=== PATIENT | female | born 2000 | race African-American/Black ===

== ENCOUNTER 2020-01-22 00:09 | Emergency (ER) | payer MEDICAID ==
[~2020-01-22] VITALS: Ht 160 cm; Wt 108.0 kg
[~2020-01-22 00:09] MED LIST: CEPH500C PO; NAPR550T PO; SULF1TAB35 PO
[2020-01-22] MEDS ORDERED: NS IV 1000 ML 1,000 ML IV ONE (00:25)
[2020-01-22] MEDS ORDERED: NS IV 1000 ML 1,000 ML IV SCH (00:25)
[2020-01-22] MEDS ORDERED: cefTRIAXone FOR IV USE 1,000 MG in WATER (STERILE) FOR INJECTION 10 ML IV ONE (00:30)
--- NOTE | 2020-01-22 00:32 | ED Back Pain ---
General Stated Complaint: GONZALEZ,BACK PAIN, 13 WKS PREG Source of Information: Patient Exam Limitations: No Limitations History of Present Illness Date Seen by Provider: Jan 22, 2020 Time Seen by Provider: 00:18 Initial Comments Patient resents ER by private conveyance from home with chief complaint of being treated for the past 3 days for a UTI by Dr. Su on the Macrobid, AZO and Tylenol 3. She feels it the pain is getting worse and she now has a headache. She's had any fever but she had some chills yesterday that went away after sitting in the shower for a while. She's having no cough or shortness of breath. No sick contacts. She is 13 weeks 5 days with a last menstrual period of October 18, 2019. . No significant problems with the thus far. Allergies and Home Medications Allergies Coded Allergies: No Known Drug Allergies (Unverified , 01/20/14) Home Medications Cephalexin 500 Mg Capsule, 500 MG PO BID Prescribed by: MATEUS GARBER on 01/22/20 0212 Cephalexin Monohydrate 500 Mg Capsule, 1 EACH PO TID Prescribed by: SANDER BARAKAT on 09/02/14 0040 Patient Home Medication List Home Medication List Reviewed: Yes Review of Systems Constitutional: No chills, No diaphoresis EENTM: No ear discharge, No ear pain Respiratory: No cough, No short of breath Cardiovascular: No chest pain, No edema Gastrointestinal: No abdominal pain, No constipation, No diarrhea, No nausea, No vomiting Genitourinary: dysuria; No frequency, No hematuria : Yes LMP: Oct 18, 2019 Musculoskeletal: see HPI, back pain; No joint pain All Other Systems Reviewed Negative Unless Noted: Yes Past Mnclfgu-Iayjhn-Cbckuu Hx Patient Social History Alcohol Use: Denies Use Recreational Drug Use: No Smoking Status: Never a Smoker Recent Foreign Travel: No Contact w/Someone Who Travel: No Immunizations Up To Date PED Vaccines UTD: Yes Seasonal Allergies Seasonal Allergies: No Past Medical History Reproductive Disorders: No Sexually Transmitted Disease: No Physical Exam Vital Signs Vital Signs - First Documented 01/22/20 00:15 Temp 37.9 Pulse 140 Resp 20 B/P (MAP) 134/80 (98) Pulse Ox 96 Capillary Refill : Height, Weight, BMI Height: 5'1" Weight: 190lbs. oz. 86.613130lz; BMI Method:Stated General Appearance: WD/WN, Mild Distress HEENT: PERRL/EOMI, Pharynx Normal, Moist Mucous Membranes Neck: Full Range of Motion, Normal Inspection Cardiovascular: Regular Rate, Rhythm, Normal Peripheral Pulses Respiratory: Lungs Clear, Normal Breath Sounds, No Accessory Muscle Use, No Respiratory Distress Gastrointestinal: Normal Bowel Sounds, Non Tender, Soft Back: Normal Inspection, No Vertebral Tenderness, CVA Tenderness (R) Extremity: Normal Capillary Refill, Normal Inspection, Normal Range of Motion, No Pedal Edema Neurologic/Psychiatric: Alert, Oriented x3, No Motor/Sensory Deficits, Normal Mood/Affect Skin: Normal Color, Warm/Dry Progress/Results/Core Measures Results/Orders Lab Results Laboratory Tests Test 01/22/20 00:35 01/22/20 01:00 01/22/20 01:25 Range/Units White Blood Count 9.9 4.3-11.0 10^3/uL Red Blood Count 3.97 L 4.35-5.85 10^6/uL Hemoglobin 11.4 L 11.5-16.0 G/DL Hematocrit 32 L 35-52 % Mean Corpuscular Volume 81 80-99 FL Mean Corpuscular Hemoglobin 29 25-34 PG Mean Corpuscular Hemoglobin Concent 36 32-36 G/DL Red Cell Distribution Width 15.3 H 10.0-14.5 % Platelet Count 216 130-400 10^3/uL Mean Platelet Volume 11.6 H 7.4-10.4 FL Neutrophils (%) (Auto) 79 H 42-75 % Lymphocytes (%) (Auto) 12 12-44 % Monocytes (%) (Auto) 9 0-12 % Eosinophils (%) (Auto) 0 0-10 % Basophils (%) (Auto) 0 0-10 % Neutrophils # (Auto) 7.9 H 1.8-7.8 X 10^3 Lymphocytes # (Auto) 1.2 1.0-4.0 X 10^3 Monocytes # (Auto) 0.9 0.0-1.0 X 10^3 Eosinophils # (Auto) 0.0 0.0-0.3 10^3/uL Basophils # (Auto) 0.0 0.0-0.1 10^3/uL Prothrombin Time 12.5 12.2-14.7 SEC INR Comment 0.9 0.8-1.4 Activated Partial Thromboplast Time 32 24-35 SEC Sodium Level 133 L 135-145 MMOL/L Potassium Level 4.0 3.6-5.0 MMOL/L Chloride Level 103 98-107 MMOL/L Carbon Dioxide Level 17 L 21-32 MMOL/L Anion Gap 13 5-14 MMOL/L Blood Urea Nitrogen 5 L 7-18 MG/DL Creatinine 0.70 0.60-1.30 MG/DL Estimat Glomerular Filtration Rate > 60 BUN/Creatinine Ratio 7 Glucose Level 117 H 70-105 MG/DL Calcium Level 8.9 8.5-10.1 MG/DL Corrected Calcium 9.4 8.5-10.1 MG/DL Total Bilirubin 0.3 0.1-1.0 MG/DL Aspartate Amino Transf (AST/SGOT) 29 5-34 U/L Alanine Aminotransferase (ALT/SGPT) 32 0-55 U/L Alkaline Phosphatase 68 40-136 U/L Total Protein 6.8 6.4-8.2 GM/DL Albumin 3.4 3.2-4.5 GM/DL Lactic Acid Level 0.88 0.50-2.00 MMOL/L Urine Color ORANGE Urine Clarity SL CLOUDY Urine pH 6.5 5-9 Urine Specific [place] 1.020 1.016-1.022 Urine Protein TRACE H NEGATIVE Urine Glucose (UA) NEGATIVE NEGATIVE Urine Ketones NEGATIVE NEGATIVE Urine Nitrite NEGATIVE NEGATIVE Urine Bilirubin NEGATIVE NEGATIVE Urine Urobilinogen 1.0 < = 1.0 MG/DL Urine Leukocyte Esterase TRACE H NEGATIVE Urine RBC (Auto) NEGATIVE NEGATIVE Urine RBC NONE /HPF Urine WBC 5-10 H /HPF Urine Squamous Epithelial Cells 5-10 /HPF Urine Crystals PRESENT H /LPF Urine Amorphous Sediment FEW ADITHYA URATES H /LPF Urine Bacteria TRACE /HPF Urine Casts NONE /LPF Urine Mucus NEGATIVE /LPF Urine Other FEW SPERM H /HPF Urine Yeast FEW H /HPF Urine Culture Indicated NO Urine Opiates Screen POSITIVE H NEGATIVE Urine Oxycodone Screen NEGATIVE NEGATIVE Urine Methadone Screen NEGATIVE NEGATIVE Urine Propoxyphene Screen NEGATIVE NEGATIVE Urine Barbiturates Screen NEGATIVE NEGATIVE Ur Tricyclic Antidepressants Screen NEGATIVE NEGATIVE Urine Phencyclidine Screen NEGATIVE NEGATIVE Urine Amphetamines Screen NEGATIVE NEGATIVE Urine Methamphetamines Screen NEGATIVE NEGATIVE Urine Benzodiazepines Screen NEGATIVE NEGATIVE Urine Cocaine Screen NEGATIVE NEGATIVE Urine Cannabinoids Screen POSITIVE H NEGATIVE My Orders Orders - JCARLOS,MATEUS J Cbc With Automated Diff (01/22/20 00:25) Comprehensive Metabolic Panel (01/22/20 00:25) Blood Culture (01/22/20:) Lactic Acid Analyzer (01/22/20:) Protime With Inr (01/22/20:) Partial Thromboplastin Time (01/22/20:25) Ed Iv/Invasive Line Start (01/22/20:25) Ceftriaxone For Iv Use (Rocephin For I (01/22/20:30) Ed Iv/Invasive Line Start (01/22/20:25) Ns Iv 1000 Ml (Sodium Chloride 0.9%) (01/22/20 00:25) Ns Iv 1000 Ml (Sodium Chloride 0.9%) (01/22/20:) Acetaminophen Tablet (Tylenol Tablet) (01/22/20 00:30) Drug Screen Stat (Urine) (01/22/20 00:32) Ua Culture If Indicated (01/22/20 01:54) Medications Given in ED Current Medications Medications Dose Ordered Sig/Macie Route Start Time Stop Time Status Last Admin Dose Admin Ceftriaxone Sodium 1000 mg/ Sterile Water 10 ml @ 200 mls/hr ONCE ONCE IV 01/22/20 00:30 01/22/20 00:32 DC 01/22/20 00:42 200 MLS/HR Sodium Chloride 1,000 ml @ 0 mls/hr Q0M ONCE IV 01/22/20 00:25 01/22/20 00:29 DC 01/22/20 00:41 1,000 MLS/HR Vital Signs/I&O 01/22/20 00:15 Temp 37.9 Pulse 140 Resp 20 B/P (MAP) 134/80 (98) Pulse Ox 96 Progress Progress Note #1: Time: 00:31 Progress Note Suspect pyelonephritis that after 3 days of outpatient antibiotics has not improved. She now has tachycardia with a heart rate in the 140s and a borderline fever of 100.2F. Plan to give her a gram of Tylenol, 2 L of fluid which would be 20 mL/kg and check labs including cultures and lactate. Progress Note #2: Time: 02:02 Progress Note Patient's heart rate has resumed a more normal rate around 100 after some fluids. She is afebrile. Her urinalysisa lot of contamination. Put her on 7 days of and discontinue the Macrobid. Departure Impression Primary Impression: Urinary tract infection Qualified Codes: N30.00 - Acute cystitis without hematuria Additional Impressions: Back pain Qualified Codes: M54.5 - Low back pain Qualified Codes: Z3A.13 - 13 weeks gestation of Disposition: 01 HOME, SELF-CARE Condition: Stable Departure-Patient Inst. Decision time for Depature: 02:05 Referrals: YOLANDA ARREOLA DO (PCP/Family) Primary Care Physician Patient Instructions: Urinary Tract Infection, Adult (DC) Add. Discharge Instructions: Drink lots of fluids. Stop taking the nitrofurantoin and start taking Keflex one capsule twice a day for the next 7 days. Tylenol 1000 mg every 8 hours as necessary for pain. Heating pads and topical creams as necessary for pain. Follow-up with your copy writer as necessary. Scripts Cephalexin (Keflex) 500 Mg Capsule 500 MG PO BID for 7 Days, #14 CAP 0 Refills Prov: MATEUS GARBER 01/22/20 Work/School Note: Work Release Form Date Seen in the Emergency Department: Jan 22, 2020 Return to Work: Jan 24, 2020 Restrictions: No Restrictions MATEUS GARBER Jan 22, 2020 00:32
--- OUTSIDE RECORDS SUMMARY | 2020-01-22 00:32 | XMS REPORT ---
Author Author Dick LANDIS [facility] Address Unknown Care Team Providers Care Drawing Instructor Name Role Phone YVONNE LANDIS Unavailable PROBLEMS Type Condition ICD9-CM Code [id number] Code Onset Dates Condition S tatus SNOMED Code Problem Dysuria R30.0 Active 05719855 Problem Acid indigestion K30 Active 162 153988 Problem Yeast vaginitis B37.3 Active 8792 4000 Problem Screen for STD (sexually transmitted disease) Z11. 3 Active 046760058 ALLERGIES No Information ENCOUNTERS Encounter Location Date Diagnosis [facility] [place] [address] [address] Mar, Abscess L02.[address] [address] Dec, Encounter for test, result unk nown Z32.[address] [address] November, Sore throat J02.9 ; Other sp ecified bacterial agents as the cause of diseases classified elsewhere B96.89 and Acute tonsillitis due to other specified organisms J03.80 [facility] [place] [address] [address] Jul, Acid indigestion K30 ; Sore throat (viral) J02.9 and Nose pain J34.[address] [address] Jan, Encounter for immunization Z23 [address] [address] 05 Dec, 2017 Sore throat J02.9 and Viral pharyngitis J02.9 [place] [address] [address] Dec, Screen for STD (sexually transmitted dis ease) Z11.3 ; Dysuria R30.0 and Yeast vaginitis B37.3 [place] [address] [address] November, Encounter for Depo-Provera contraception Z30.[address] [address] Sep, Encounter for Depo-Provera contraception Z30.42 [facility] [address] [place] [address] Sep, Flu-like symptoms R68.89 [facility] [address] [address] Jul, Viral gastroenteritis A08.4 [facility] [address] [address] 08 Jun, 2017 Sore throat J02.9 and Acute nasopharyngitis J00 [address] [address] 07 Jun, 2017 Encounter for Depo-Provera contraception Z30.42 [place] [address] [address] Mar, [address] [address] Mar, [facility] [address] [place] [address] 17 Mar, 2017 Sore throat J02.9 and Acute nasopharyngitis (common cold) J00 [address] [address] 06 Mar, 2017 Encounter for Depo-Provera contraception Z30.42 [place] [address] [address] Feb, Well child check Z00.129 ; Dietary couns eling Z71.3 ; Exercise counseling Z71.89 and Encounter for surveillance of injectable contraceptive Z30.[address] [address] 15 Dec, 2016 Encounter for Depo-Provera contraception Z30.42 [facility] [address] [id number] [address] [place] [address] Oct, Contusion of right leg, init ial encounter S80.11XA [address] [address] Sep, Encounter for Depo-Provera contraception Z30.[address] [address] Jul, Encounter for Depo-Provera contraception Z30.[address] [address] Apr, Encounter for Depo-Provera contraception Z30.[address] [address] Feb, Hyperinsulinemia E16.1 and Obesity (BMI 30-39.9) E66.[address] [address] Feb, Encounter for Depo-Provera contraception Z30.[address] [address] Jan, [facility] [place] [id number] [address] [place] [address] Dec, Congestion of both ears H93. 8X3 and Otalgia of right ear H92.[address] [address] Dec, [address] [address] November, Routine health maintenance Z00.00 ; Obes ity (BMI 30-39.9) E66.9 ; Family history of diabetes mellitus Z83.3 and Oral contraceptive pill surveillance Z30.41 [facility] [address] [address] 17 November, 2016 Routine health maintenance Z00.00 ; Enco unter for Depo-Provera contraception Z30.42 ; Obesity (BMI 30-39.9) E66.9 ; Family history of diabetes mellitus Z83.3 and Encounter for immunization Z23 [facility] [address] [place] [id number] [address] [place] [address] 03 Nov, 2015 Abscess L02.91 [facility] [address] [place] [address] 20 Oct, 2015 Encounter for PPD test Z11.1 [facility] [place] [address] [address] Oct, Pharyngitis J02.9 and Strep pharyngitis J02.0 [place] [address] [address] 14 Oct, 2014 [facility] [address] [address] Oct, [place] [address] [address] Sep, [facility] [address] [address] Sep, [place] [address] [address] Sep, [facility] [address] [address] Sep, [place] [address] [address] Aug, [facility] [address] [address] Aug, [place] [address] [address] Apr, [facility] [address] [facility] [place] [address] Apr, [facility] [address] [place] [id number] [place] [address] Mar, [facility] [address] [facility] [place] [address] Mar, [facility] [address] [place] [id number] [place] [address] Mar, [facility] [address] [place] [id number] [place] [address] Mar, [facility] [address] [place] [id number] [place] [address] Jan, [facility] [address] [place] [id number] [place] [address] Jan, [facility] [address] [place] [id number] [place] [address] Jan, [facility] [address] [place] [id number] [place] [address] Jan, [facility] [address] [place] [id number] [place] [address] Sep, [facility] [address] [place] [id number] [place] [address] Sep, IMMUNIZATIONS No Known Immunizations SOCIAL HISTORY Never Assessed REASON FOR VISIT PLAN OF CARE VITAL SIGNS MEDICATIONS No Known Medications RESULTS No Results PROCEDURES Procedure Date Ordered Result Body Site PSYCH DIAGNOSTIC EVALUATION February 03, 2014 INSTRUCTIONS MEDICATIONS ADMINISTERED No Known Medications MEDICAL (GENERAL) HISTORY Type Description Date Medical History mood disorder- patient state s bio moms doctor dx- and mom sold the medication that she was prescribed. Medical History Hyperinsulinemia Medical History Hyperinsulinemia Medical History Obesity (BMI 30-39.9) Medical History Hyperinsulinemia Surgical History tympanostomy tubes placed- now out. 2004 Surgical History wisdom teeth extraction 2015
--- OUTSIDE RECORDS SUMMARY | 2020-01-22 00:32 | XMS REPORT ---
Author Author VISHNU Josephinevalentina WOOELE Organization [facility] Address [address] [place] [address] Care Team Providers Care Duck Bill Operator Name Role Phone MARESEYAL Mcgrath Unavailable PROBLEMS Type Condition ICD9-CM Code [id number] Code Onset Dates Condition S tatus SNOMED Code Problem Dysuria R30.0 Active 41021932 Problem Screen for STD (sexually transmitted disease) Z11. 3 Active 165159141 Problem Obesity (BMI 30-39.9) E66.9 Active 335427151 Problem Family history of diabetes mellitus Z83.3 Active 605798680 Problem Yeast vaginitis B37.3 Active 7241 4000 Problem Hyperinsulinemia E16.1 Active 834 15173 ALLERGIES No Information ENCOUNTERS Encounter Location Date Diagnosis [facility] [address] [facility] [id number] [address] [place] [address] Jan, Encounter for immunization Z 23 [facility] [address] [place] [id number] [address] [place] [address] Dec, Sore throat J02.9 and Viral pharyngitis J02.9 [facility] [address] [facility] [id number] [address] [place] [address] Dec, Screen for STD (sexually tra nsmitted disease) Z11.3 ; Dysuria R30.0 and Yeast vaginitis B37.3 [facility] [address] [facility] [id number] [address] [place] [address] November, Encounter for Depo-Provera c ontraception Z30.42 [facility] [address] [facility] [id number] [address] [place] [address] Sep, Encounter for Depo-Provera c ontraception Z30.42 [facility] [address] [place] [address] 05 Sep, 2017 Flu-like symptoms R68.89 [facility] [address] [place] [address] Jul, Viral gastroenteritis A08.4 [facility] [address] [place] [id number] [address] [place] [address] 08 Jun, 2017 Sore throat J02.9 and Acute nasopharyngitis J00 [facility] [address] [address] 07 Jun, 2017 Encounter for Depo-Provera c ontraception Z30.42 [place] [address] [address] 27 Mar, 2017 [place] [address] [address] 26 Mar, 2017 [facility] [address] [address] 17 Mar, 2017 Sore throat J02.9 and Acute nasopharyngitis (common cold) J00 [place] [address] [address] 06 Mar, 2017 Encounter for Depo-Provera c ontraception Z30.42 [place] [address] [address] 15 Feb, 2017 Well child check Z00.129 ; D ietary counseling Z71.3 ; Exercise counseling Z71.89 and Encounter for surveillance of injectable contraceptive Z30.42 [place] [address] [address] 15 Dec, 2016 Encounter for Depo-Provera c ontraception Z30.42 [facility] [address] [place] [id number] [address] [place] [address] 18 Oct, 2016 Contusion of right leg, init ial encounter S80.11XA [place] [address] [address] Sep, Encounter for Depo-Provera c ontraception Z30.42 [place] [address] [address] Jul, Encounter for Depo-Provera c ontraception Z30.42 [place] [address] [address] Apr, Encounter for Depo-Provera c ontraception Z30.42 [place] [address] [address] Feb, Hyperinsulinemia E16.1 and O besity (BMI 30-39.9) E66.9 [place] [address] [address] Feb, Encounter for Depo-Provera c ontraception Z30.42 [place] [address] [address] Jan, [facility] [address] [address] Dec, Congestion of both ears H93. 8X3 and Otalgia of right ear H92.01 [place] [address] [address] Dec, [facility] [address] [address] November, Routine health maintenance Z 00.00 ; Obesity (BMI 30-39.9) E66.9 ; Family history of diabetes mellitus Z83.3 and Oral contraceptive pill surveillance Z30.41 [place] [address] [address] November, Routine health maintenance Z 00.00 ; Encounter for Depo-Provera contraception Z30.42 ; Obesity (BMI 30-39.9) E66.9 ; Family history of diabetes mellitus Z83.3 and Encounter for immunization Z23 [facility] [address] [id number] [address] [place] [address] November, Abscess L02.91 [facility] [address] [id number] [address] [place] [address] 20 Oct, 2015 Encounter for PPD test Z11.1 [facility] [address] [id number] [address] [place] [address] 11 Oct, 2015 Pharyngitis J02.9 and Strep pharyngitis J02.0 [facility] [address] [id number] [address] [place] [address] 14 Oct, 2014 [facility] [address] [id number] [address] [place] [address] Oct, [facility] [address] [id number] [address] [place] [address] Sep, [facility] [address] [id number] [address] [place] [address] Sep, [facility] [address] [id number] [address] [place] [address] Sep, [facility] [address] [id number] [address] [place] [address] Sep, [facility] [address] [id number] [address] [place] [address] Aug, [facility] [address] [id number] [address] [place] [address] Aug, [facility] [address] [id number] [address] [place] [address] Apr, [facility] [address] [id number] [address] [place] [address] Apr, [facility] [address] [id number] [address] [place] [address] Mar, [facility] [address] [id number] [address] [place] [address] Mar, [facility] [address] [id number] [address] [place] [address] Mar, [facility] [address] [id number] [address] [place] [address] Mar, [facility] [address] [id number] [address] [place] [address] Jan, [facility] [address] [id number] [address] [place] [address] Jan, [facility] [address] [id number] [address] [place] [address] Jan, [facility] [address] [id number] [address] [place] [address] Jan, [facility] [address] [id number] [address] [place] [address] Sep, [facility] [address] [id number] [address] [place] [address] Sep, IMMUNIZATIONS Vaccine Route Administration Date Status DEPO PROVERA (150 MG/ML) IM Intramuscular December 07, 2017 Admini stered SOCIAL HISTORY Never Assessed REASON FOR VISIT [facility]ARE VITAL SIGNS MEDICATIONS Unknown Medications RESULTS Name Result Date Reference Range TEST, URINE (IN HOUSE) 2017-12-07 RESULTS neg Lot # [id number] Control + Exp date 07/04 PROCEDURES Procedure Date Ordered Result Body Site URINE TEST December 07, 2017 DEPO PROVERA (150 MG/ML) December 07, 2017 THER/PROPH/DIAG INJ, SC/IM December 07, 2017 INSTRUCTIONS MEDICATIONS ADMINISTERED No Known Medications MEDICAL (GENERAL) HISTORY Type Description Date Medical History mood disorder- patient state s bio moms doctor dx- and mom sold the medication that she was prescribed. Medical History Hyperinsulinemia Medical History Hyperinsulinemia Surgical History tympanostomy tubes placed- now out. 2004 Surgical History wisdom teeth extraction 2015
--- OUTSIDE RECORDS SUMMARY | 2020-01-22 00:32 | XMS REPORT ---
Author Author Dick NEWMAN Organization [facility] Address [address] [place] [address] Care Team Providers Care Pst Supervisor Name Role Phone BRIE NEWMAN Unavailable PROBLEMS Type Condition ICD9-CM Code TNF02-YT Code Onset Dates Condition S tatus SNOMED Code Problem Dysuria R30.0 Active 06877333 Problem Acid indigestion K30 Active 162 264303 Problem Yeast vaginitis B37.3 Active 7263 4000 Problem Screen for STD (sexually transmitted disease) Z11. 3 Active 439020561 ALLERGIES No Information ENCOUNTERS Encounter Location Date Diagnosis [facility] [address] [place] [id number] [address] [place] [address] Sep, 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 [address] [place] [id number] [address] [place] [address] Mar, Abscess L02.91 [facility] [address] [place] [id number] [address] [place] [address] Dec, Encounter for test , result unknown Z32.00 [facility] IN [facility] [address] [place] [id number] [address] [place] [address] November, Sore throat J02.9 ; Other sp ecified bacterial agents as the cause of diseases classified elsewhere B96.89 and Acute tonsillitis due to other specified organisms J03.80 [facility] [address] [place] [id number] [address] [place] [address] Jul, Acid indigestion K30 ; Sore throat (viral) J02.9 and Nose pain J34.89 [facility] [address] [place] [address] Jan, Encounter for immunization Z 23 [facility] [address] [place] [id number] [place] [address] Dec, Sore throat J02.9 and Viral pharyngitis J02.9 [place] [address] [address] Dec, Screen for STD (sexually tra nsmitted disease) Z11.3 ; Dysuria R30.0 and Yeast vaginitis B37.3 [place] [address] [address] November, Encounter for Depo-Provera c ontraception Z30.42 [place] [address] [address] Sep, Encounter for Depo-Provera c ontraception Z30.42 [facility] [address] [address] Sep, Flu-like symptoms R68.89 [facility] [place] [address] [address] Jul, Viral gastroenteritis A08.4 [facility] [address] [address] Jun, Sore throat J02.9 and Acute nasopharyngitis J00 [place] [address] [address] Jun, Encounter for Depo-Provera c ontraception Z30.42 [place] [address] [place] [id number] [address] [place] [address] Mar, [place] [address] [place] [id number] [place] [address] Mar, [facility] [address] [address] 17 Mar, 2017 Sore throat J02.9 and Acute nasopharyngitis (common cold) J00 [place] [address] [address] 06 Mar, 2017 Encounter for Depo-Provera c ontraception Z30.42 [place] [address] [address] 15 Feb, 2017 Well child check Z00.129 ; D ietary counseling Z71.3 ; Exercise counseling Z71.89 and Encounter for surveillance of injectable contraceptive Z30.42 [place] [address] [address] 15 Dec, 2016 Encounter for Depo-Provera c ontraception Z30.42 [facility] [address] [address] 18 Oct, 2016 Contusion of right leg, init ial encounter S80.11XA [place] [address] [address] Sep, Encounter for Depo-Provera c ontraception Z30.42 [place] [address] [address] Jul, Encounter for Depo-Provera c ontraception Z30.42 [place] [address] [address] Apr, Encounter for Depo-Provera c ontraception Z30.42 [place] [address] [address] 16 Feb, 2016 Hyperinsulinemia E16.1 and O besity (BMI 30-39.9) E66.9 [place] [address] [address] Feb, Encounter for Depo-Provera c ontraception Z30.42 [place] [address] [address] Jan, [facility] IN [facility] [address] [address] Dec, Congestion of both ears H93. 8X3 and Otalgia of right ear H92.01 [place] [address] [address] Dec, [place] [address] [address] November, Routine health maintenance Z 00.00 ; Obesity (BMI 30-39.9) E66.9 ; Family history of diabetes mellitus Z83.3 and Oral contraceptive pill surveillance Z30.41 [place] [address] [address] November, Routine health maintenance Z 00.00 ; Encounter for Depo-Provera contraception Z30.42 ; Obesity (BMI 30-39.9) E66.9 ; Family history of diabetes mellitus Z83.3 and Encounter for immunization Z23 [facility] IN [place] [address] [address] November, Abscess L02.91 [facility] IN [place] [address] [address] Oct, Encounter for PPD test Z11.1 [facility] IN [place] [address] [address] Oct, Pharyngitis J02.9 and Strep pharyngitis J02.0 [place] [address] [address] Oct, [place] [address] [address] Oct, [place] [address] [place] [id number] [address] [place] [address] Sep, [facility] [address] [id number] [address] [address] 27 Sep, 2014 [facility] [address] [id number] [address] [place] [address], [place] [address] Sep, [facility] [address] [id number] [address] [place] [address], [place] [address] Sep, 2014 [facility] [address] [id number] [address] [place] [address], [place] [address] Aug, 2014 [facility] [address] [id number] [address] [place] [address], [place] [address] Aug, 2014 [facility] [address] [id number] [address] [place] [address], [place] [address] Apr, [facility] [address] [id number] [address] [place] [address], [place] [address] Apr, [facility] [address] [id number] [address] [place] [address], [place] [address] Mar, [facility] [address] [id number] [address] [place] [address], [place] [address] Mar, [facility] [address] [id number] [address] [place] [address], [place] [address] Mar, [facility] [address] [id number] [address] [place] [address], [place] [address] Mar, [facility] [address] [id number] [address] [place] [address], [place] [address] Jan, [facility] [address] [id number] [address] [place] [address], [place] [address] Jan, [facility] [address] [id number] [address] [place] [address], [place] [address] Jan, [facility] [address] [id number] [address] [place] [address], [place] [address] Jan, [facility] [address] [id number] [address] [place] [address], [place] [address] Sep, [facility] [address] [facility] [id number] [address] [place] [address] Sep, IMMUNIZATIONS No Known Immunizations SOCIAL HISTORY Never Assessed REASON FOR VISIT PLAN OF CARE VITAL SIGNS MEDICATIONS Unknown Medications RESULTS No Results PROCEDURES No Known procedures INSTRUCTIONS MEDICATIONS ADMINISTERED No Known Medications MEDICAL [...]
--- OUTSIDE RECORDS SUMMARY | 2020-01-22 00:32 | XMS REPORT ---
Author Author Dick MAYFIELD [facility] Address [address] [place] [address] Care Team Providers Care Machine Stuffer Automatic Name Role Phone MAYFIELDSAMNANCY Unavailable PROBLEMS Type Condition ICD9-CM Code [id number] Code Onset Dates Condition S tatus SNOMED Code Problem Dysuria R30.0 Active 42377037 Problem Screen for STD (sexually transmitted disease) Z11. 3 Active 797652278 Problem Obesity (BMI 30-39.9) E66.9 Active 793044390 Problem Family history of diabetes mellitus Z83.3 Active 225404878 Problem Yeast vaginitis B37.3 Active 7293 4000 Problem Hyperinsulinemia E16.1 Active 834 50857 ALLERGIES Substance Reaction Event Type Date Status Bee Pollen hives Drug Allergy Dec, Active ENCOUNTERS Encounter Location Date Diagnosis [facility] [id number] [place] [address] Jan, Encounter for immunization Z 23 [facility] [address] [address] [id number] [address] [place] [phone] Dec, Sore throat J02.9 and Viral pharyngitis J02.9 [facility] [id number] [place] [address] Dec, Screen for STD (sexually tra nsmitted disease) Z11.3 ; Dysuria R30.0 and Yeast vaginitis B37.3 [facility] [id number] [address] [place] [address] November, Encounter for Depo-Provera c ontraception Z30.42 [facility] [id number] [address] [place] [address] Sep, Encounter for Depo-Provera c ontraception Z30.42 [facility] [id number] [address] [place] [id number] 05 Sep, 2017 Flu-like symptoms R68.89 [facility] WALK IN [facility] [id number] [address] [place] [phone] Jul, Viral gastroenteritis A08.4 [facility] WALK [facility] [place] [address] [id number] [address] [place] [address] 08 Jun, 2017 Sore throat J02.9 and Acute nasopharyngitis J00 [place] [address] [address] 07 Jun, 2017 Encounter for Depo-Provera c ontraception Z30.42 [place] [address] [place] [id number] [place] [phone] 27 Mar, 2017 [place] [address] [address] Mar, [facility] WALK [facility] [place] [address] [address] 17 Mar, 2017 Sore throat J02.9 and Acute nasopharyngitis (common cold) J00 [place] [address] [address] 06 Mar, 2017 Encounter for Depo-Provera c ontraception Z30.42 [place] [address] [address] 15 Feb, 2017 Well child check Z00.129 ; D ietary counseling Z71.3 ; Exercise counseling Z71.89 and Encounter for surveillance of injectable contraceptive Z30.42 [place] [address] [address] 15 Dec, 2016 Encounter for Depo-Provera c ontraception Z30.42 [facility] [id number] [address] [place] [id number] 18 Oct, 2016 Contusion of right leg, init ial encounter S80.11XA [facility] [id number] [place] [address] Sep, Encounter for Depo-Provera c ontraception Z30.42 [place] [address] [place] [id number] [address] [place] [address] Jul, Encounter for Depo-Provera c ontraception Z30.42 [place] [address] [address] Apr, Encounter for Depo-Provera c ontraception Z30.42 [place] [address] [address] Feb, Hyperinsulinemia E16.1 and O besity (BMI 30-39.9) E66.9 [place] [address] [address] Feb, Encounter for Depo-Provera c ontraception Z30.42 [place] [address] [place] [id number] [place] [address] Jan, [facility] [address] [address] Dec, Congestion of both ears H93. 8X3 and Otalgia of right ear H92.01 [place] [address] [address] Dec, [place] [address] [address] November, Routine health maintenance Z 00.00 ; Obesity (BMI 30-39.9) E66.9 ; Family history of diabetes mellitus Z83.3 and Oral contraceptive pill surveillance Z30.41 [place] [address] [place] [id number] [place] [address] November, Routine health maintenance Z 00.00 ; Encounter for Depo-Provera contraception Z30.42 ; Obesity (BMI 30-39.9) E66.9 ; Family history of diabetes mellitus Z83.3 and Encounter for immunization Z23 [facility] [address] [facility] [id number] [address] [place] [address] November, Abscess L02.91 [facility] [address] [facility] [id number] [address] [place] [address] Oct, Encounter for PPD test Z11.1 [facility] [address] [facility] [id number] [address] [place] [address] Oct, Pharyngitis J02.9 and Strep pharyngitis J02.0 [facility] [address] [id number] [address] [place] [address] Oct, [facility] [address] [id number] [address] [place] [address] Oct, [facility] [address] [facility] [id number] [address] [place] [address] Sep, [facility] [address] [id number] [address] [place] [address] Sep, [facility] [address] [facility] [id number] [address] [place] [address] Sep, [facility] [address] [facility] [id number] [address] [place] [address] Sep, [facility] [address] [facility] [id number] [address] [place] [phone] Aug, [facility] [address] [id number] [address] [place] [address] Aug, [facility] [address] [facility] [id number] [address] [place] [address] Apr, [facility] [address] [facility] [id number] [address] [place] [phone] Apr, [facility] [address] [facility] [id number] [address] [place] [phone] Mar, [facility] [address] [id number] [address] [place] [phone] Mar, [facility] [address] [id number] [address] [place] [address] Mar, [facility] [address] [id number] [address] [place] [phone] Mar, [facility] [address] [id number] [address] [place] [address] Jan, [facility] [address] [id number] [address] [place] [phone] Jan, [facility] [address] [id number] [address] [place] [address] Jan, [facility] [address] [id number] [address] [place] [address] Jan, [facility] [address] [id number] [address] [place] [address] Sep, [facility] [address] [id number] [address] [place] [address] Sep, IMMUNIZATIONS No Known Immunizations SOCIAL HISTORY Never Assessed REASON FOR VISIT sore throat Pt c/o sinus drainaige, cough, and sore throat, states she recently got "yellow balls" out of her tonsils ROLLY Alex PLAN OF CARE Activity Details Follow Up prn Reason: VITAL SIGNS Height 62 in 2017-12-19 Weight 223.4 lbs 2017-12-19 Temperature 97.9 degrees Fahrenheit 2017-12-19 Heart Rate 80 bpm 2017-12-19 Respiratory Rate 20 2017-12-19 BMI 40.86 kg/m2 2017-12-19 Blood pressure systolic 118 mmHg 2017-12-19 Blood pressure diastolic 76 mmHg 2017-12-19 MEDICATIONS Medication Instructions Dosage Frequency Start Date End Date Duration S tatus Depo-Provera 150 MG/ML 1 ml Feb, Active MetFORMIN HCl ER 500 MG Orally twice a day APPT NEEDED FOR R EFILL 1 tablet with a meal Dec, 60 days Active RESULTS Name Result Date Reference Range STREP A (IN HOUSE) 2017-12-19 STREP A negative Control + Lot # [id number] Exp date 2020-05-01 PROCEDURES Procedure Date Ordered Result Body Site STREP A ASSAY W/OPTIC December 19, 2017 INSTRUCTIONS MEDICATIONS ADMINISTERED No Known Medications MEDICAL (GENERAL) HISTORY Type Description Date Medical History mood disorder- patient state s bio moms doctor dx- and mom sold the medication that she was prescribed. Medical History Hyperinsulinemia Medical History Hyperinsulinemia Surgical History tympanostomy tubes placed- now out. 2004 Surgical History wisdom teeth extraction 2015
--- OUTSIDE RECORDS SUMMARY | 2020-01-22 00:32 | XMS REPORT ---
Author Author Dick Mckeon Organization [employer] Address Unknown Phone Unavailable Care Team Providers Care Postal Transportation Clerk Name Role Phone Michael Mckeon CP Unavailable Allergies No Known Allergies Problems Problem Type Condition Code Onset Dates Condition Statu s Problem CARE LEVEL 3 CARE3 Active Medications No Known Medications Results No Known Results Summary Purpose [employer] Submission
--- OUTSIDE RECORDS SUMMARY | 2020-01-22 00:32 | XMS REPORT ---
Author Author Dick TUCKER [facility] Address [address] [place] [address] Care Team Providers Care Bleach Mixer Name Role Phone GARRETTSELENEHY Unavailable PROBLEMS Type Condition ICD9-CM Code RHH92-LK Code Onset Dates Condition S tatus SNOMED Code Problem Dysuria R30.0 Active 43258718 Problem Screen for STD (sexually transmitted disease) Z11. 3 Active 837242678 Problem Obesity (BMI 30-39.9) E66.9 Active 245630454 Problem Family history of diabetes mellitus Z83.3 Active 464035541 Problem Yeast vaginitis B37.3 Active 7293 4000 Problem Hyperinsulinemia E16.1 Active 834 66879 ALLERGIES Substance Reaction Event Type Date Status Bee Pollen hives Drug Allergy Sep, Active ENCOUNTERS Encounter Location Date Diagnosis [facility]ALK IN [facility] [id number] [place] [address] Dec, Sore throat J02.9 and Viral pharyngitis J02.9 [facility] [address] [facility] [id number] [address] [place] [address] Dec, Screen for STD (sexually tra nsmitted disease) Z11.3 ; Dysuria R30.0 and Yeast vaginitis B37.3 [facility] [address] [facility] [id number] [address] [place] [address] November, Encounter for Depo-Provera c ontraception Z30.42 [facility] [address] [facility] [id number] [address] [place] [address] Sep, Encounter for Depo-Provera c ontraception Z30.42 [facility] [address] [facility] [id number] [address] [place] [address] Sep, Flu-like symptoms R68.89 [facility] [address] [facility] [id number] [address] [place] [address] Jul, Viral gastroenteritis A08.4 [facility] IN [facility] [address] [facility] [id number] [address] [place] [address] 08 Jun, 2017 Sore throat J02.9 and Acute nasopharyngitis J00 [place] [id number] [place] [address] 07 Jun, 2017 Encounter for Depo-Provera c ontraception Z30.42 [place] [address] [address] [id number] [address] [place] [phone] 27 Mar, 2017 [place] [address] [id number] [place] [address] 26 Mar, 2017 [facility] WALK IN [facility] [address] [address] 17 Mar, 2017 Sore throat J02.9 and Acute nasopharyngitis (common cold) [address] [place] [id number] [place] [address] 06 Mar, 2017 Encounter for Depo-Provera c ontraception Z30.42 [place] [address] [address] [id number] [place] [address] 15 Feb, 2017 Well child check Z00.129 ; D ietary counseling Z71.3 ; Exercise counseling Z71.89 and Encounter for surveillance of injectable contraceptive Z30.42 [place] [address] [place] [id number] [place] [address] 15 Dec, 2016 Encounter for Depo-Provera c ontraception Z30.42 [facility] IN [facility] [address] [id number] [address] [place] [address] 18 Oct, 2016 Contusion of right leg, init ial encounter S80.11XA [place] [address] [address] Sep, Encounter for Depo-Provera c ontraception Z30.42 [facility] [address] [id number] [address] [place] [address] Jul, Encounter for Depo-Provera c ontraception Z30.42 [place] [address] [place] [id number] [address] [place] [address] Apr, Encounter for Depo-Provera c ontraception Z30.42 [place] [address] [address] Feb, Hyperinsulinemia E16.1 and O besity (BMI 30-39.9) E66.9 [place] [address] [address] Feb, Encounter for Depo-Provera c ontraception Z30.42 [place] [address] [address] Jan, [facility] [address] [address] Dec, Congestion of both ears H93. 8X3 and Otalgia of right ear H92.01 [place] [address] [place] [id number] [place] [address] Dec, [place] [address] [place] [id number] [address] [place] [address] November, Routine health maintenance Z 00.00 ; Obesity (BMI 30-39.9) E66.9 ; Family history of diabetes mellitus Z83.3 and Oral contraceptive pill surveillance Z30.41 [place] [address] [place] [id number] [place] [address] November, Routine health maintenance Z 00.00 ; Encounter for Depo-Provera contraception Z30.42 ; Obesity (BMI 30-39.9) E66.9 ; Family history of diabetes mellitus Z83.3 and Encounter for immunization Z23 [facility] [address] [place] [address] [id number] [address] [place] [address] November, Abscess L02.91 [facility] [address] [id number] [address] [place] [address] 20 Oct, 2015 Encounter for PPD test Z11.1 [facility] [address] [id number] [address] [place] [address] 11 Oct, 2015 Pharyngitis J02.9 and Strep pharyngitis J02.0 [facility] [address] [id number] [address] [place] [address] 14 Oct, 2014 [facility] [address] [id number] [address] [place] [address] Oct, [facility] [address] [id number] [address] [place] [address] Sep, [facility] [address] [id number] [address] [place] [address] Sep, [facility] [address] [id number] [address] [place] [address] Sep, [facility] [address] [id number] [address] [place] [address] Sep, [facility] [address] [id number] [address] [place] [address] Aug, [facility] [address] [id number] [address] [place] [address] Aug, [facility] [address] [id number] [address] [place] [address] Apr, [facility] [address] [id number] [address] [place] [address] Apr, [facility] [address] [id number] [address] [place] [address] Mar, [facility] [address] [id number] [address] [place] [phone] Mar, [facility] [address] [id number] [address] [place] [address] Mar, [facility] [address] [id number] [address] [place] [address] Mar, [facility] [address] [id number] [address] [place] [phone] Jan, [facility] [address] [id number] [address] [place] [address] Jan, [facility] [address] [id number] [address] [place] [phone] Jan, [facility] [address] [id number] [address] [place] [phone] Jan, [facility] [address] [facility] [id number] [address] [place] [address] Sep, [facility] [address] [facility] [id number] [address] [place] [address] Sep, IMMUNIZATIONS No Known Immunizations SOCIAL HISTORY Never Assessed REASON FOR VISIT cough, congestion, sore throat, runny nose, vasu headache. been sick for 2 days. hui PLAN OF CARE Activity Details Follow Up prn Reason: VITAL SIGNS Height 62 in 2017-09-18 Weight 226.0 lbs 2017-09-18 Temperature 98.3 degrees Fahrenheit 2017-09-18 Heart Rate 84 bpm 2017-09-18 Respiratory Rate 20 2017-09-18 BMI 41.33 kg/m2 2017-09-18 Blood pressure systolic 126 mmHg 2017-09-18 Blood pressure diastolic 74 mmHg 2017-09-18 MEDICATIONS Medication Instructions Dosage Frequency Start Date End Date Duration S tatus Trazodone HCl 50 MG Orally Once a day 1 tablet at bedtime as needed 24h Not-Taking Ibuprofen 200 MG Orally every 6 hrs 3 tablet as needed 6h Not-Taking Flagyl 500 mg Orally 2 times a day 1 tablet 12h 26 Mar, 2017 07 days Not-Taking Depo-Provera 150 MG/ML 1 ml Feb, Not-Taking MetFORMIN HCl ER 500 MG Orally twice a day APPT NEEDED FOR R EFILL 1 tablet with a meal Dec, 60 days Not-Taking Sudafed 30 MG Orally every 6 hrs prn congestion 1 tablet as needed Dec, Not-Taking RESULTS Name Result Date Reference Range INFLUENZA A & B (IN HOUSE) 2017-09-18 INFLUENZA A negative INFLUENZA B negative Control + Lot # [id number] Exp date 11 14 2019 PROCEDURES Procedure Date Ordered Result Body Site INFLUENZA ASSAY W/OPTIC September 18, 2017 INSTRUCTIONS MEDICATIONS ADMINISTERED No Known Medications MEDICAL (GENERAL) HISTORY Type Description Date Medical History mood disorder- patient state s bio moms doctor dx- and mom sold the medication that she was prescribed. Medical History Hyperinsulinemia Medical History Hyperinsulinemia Surgical History tympanostomy tubes placed- now out. 2004 Surgical History wisdom teeth extraction 2015
--- OUTSIDE RECORDS SUMMARY | 2020-01-22 00:32 | XMS REPORT ---
Author Author Dick NEWMAN Organization [facility] [place] Address [address] [place] [address] Care Team Providers Care Order Tracer Name Role Phone BRIE NEWMAN Unavailable PROBLEMS Type Condition ICD9-CM Code OBR13-FD Code Onset Dates Condition S tatus SNOMED Code Problem Dysuria R30.0 Active 57904440 Problem Acid indigestion K30 Active 162 974258 Problem Yeast vaginitis B37.3 Active 7266 4000 Problem Screen for STD (sexually transmitted disease) Z11. 3 Active [id number] ALLERGIES No Information ENCOUNTERS Encounter Location Date Diagnosis [facility] [address] [address] Mar, Abscess L02.[address] [address] Dec, Encounter for test, result unk nown Z32.00 [place] [id number] [address] [place] [address] November, Sore throat J02.9 ; Other sp ecified bacterial agents as the cause of diseases classified elsewhere B96.89 and Acute tonsillitis due to other specified organisms J03.80 [place] [id number] [address] [place] [address] Jul, Acid indigestion K30 ; Sore throat (viral) J02.9 and Nose pain J34.[address] [address] Jan, Encounter for immunization Z23 [address] [address] Dec, Sore throat J02.9 and Viral pharyngitis J02.9 [place] [address] [address] Dec, Screen for STD (sexually transmitted dis ease) Z11.3 ; Dysuria R30.0 and Yeast vaginitis B37.3 [place] [address] [address] November, Encounter for Depo-Provera contraception Z30.42 [place] [address] [address] Sep, Encounter for Depo-Provera contraception Z30.42 [facility] [address] [address] Sep, Flu-like symptoms R68.89 [facility] [address] [address] Jul, Viral gastroenteritis A08.4 [facility] [address] [address] Jun, Sore throat J02.9 and Acute nasopharyngitis J00 [address] [address] Jun, Encounter for Depo-Provera contraception Z30.42 [place] [address] [address] Mar, [place] [address] [address] Mar, [facility] [address] [address] Mar, Sore throat J02.9 and Acute nasopharyngitis (common cold) J00 [place] [address] [address] 06 Mar, 2017 Encounter for Depo-Provera contraception Z30.42 [place] [address] [address] Feb, Well child check Z00.129 ; Dietary couns eling Z71.3 ; Exercise counseling Z71.89 and Encounter for surveillance of injectable contraceptive Z30.42 [place] [address] [address] Dec, Encounter for Depo-Provera contraception Z30.42 [facility] [place] [id number] [address] [place] [address] Oct, Contusion of right leg, init ial encounter S80.11XA [address] [address] Sep, Encounter for Depo-Provera contraception Z30.42 [place] [address] [address] Jul, Encounter for Depo-Provera contraception Z30.[address] [address] Apr, Encounter for Depo-Provera contraception Z30.[address] [address] Feb, Hyperinsulinemia E16.1 and Obesity (BMI 30-39.9) E66.[address] [address] Feb, Encounter for Depo-Provera contraception Z30.[address] [address] Jan, [facility] [address] [place] [id number] [place] [address] Dec, Congestion of both ears H93. 8X3 and Otalgia of right ear H92.[address] [address] Dec, [address] [address] November, Routine health maintenance Z00.00 ; Obes ity (BMI 30-39.9) E66.9 ; Family history of diabetes mellitus Z83.3 and Oral contraceptive pill surveillance Z30.41 [facility] [place] [address] [address] 17 November, 2016 Routine health maintenance Z00.00 ; Enco unter for Depo-Provera contraception Z30.42 ; Obesity (BMI 30-39.9) E66.9 ; Family history of diabetes mellitus Z83.3 and Encounter for immunization Z23 [facility] [address] [address] 03 Nov, 2015 Abscess L02.91 [facility] [address] [address] Oct, Encounter for PPD test Z11.1 [facility] [address] [address] 11 Oct, 2015 Pharyngitis J02.9 and Strep pharyngitis J02.0 [place] [address] [address] 14 Oct, 2014 [place] [address] [address] Oct, [facility] [place] [address] [address] Sep, [place] [address] [address] Sep, [facility] [place] [address] [address] Sep, [facility] [place] [address] [address] Sep, [place] [address] [address] Aug, [facility] [place] [address] [address] Aug, [facility] [place] [address] [place] [address] Apr, [facility] [place] [address] [place] [id number] [place] [address] Apr, [facility] [place] [address] [place] [id number] [place] [address] Mar, [facility] [place] [address] [place] [id number] [place] [address] Mar, [facility] [place] [address] [place] [id number] [place] [address] Mar, [facility] [place] [address] [place] [id number] [place] [address] Mar, [facility] [place] [address] [place] [id number] [place] [address] Jan, [facility] [place] [address] [place] [id number] [place] [address] Jan, [facility] [place] [address] [place] [id number] [place] [address] Jan, [facility] [place] [address] [place] [id number] [place] [address] Jan, [facility] [place] [address] [place] [id number] [place] [address] Sep, [facility] [place] [address] [place] [id number] [place] [address] Sep, IMMUNIZATIONS No Known Immunizations SOCIAL HISTORY Never Assessed REASON FOR VISIT PLAN OF CARE VITAL SIGNS MEDICATIONS No Known Medications RESULTS No Results PROCEDURES Procedure Date Ordered Result Body Site PSYTX PT&/FAMILY 45 MINUTES February 04, 2014 INSTRUCTIONS MEDICATIONS ADMINISTERED No Known Medications [...]
--- OUTSIDE RECORDS SUMMARY | 2020-01-22 00:32 | XMS REPORT ---
Author Author Dick Bartholomew Doctor Organization [facility] Address Unknown Phone Unavailable Care Team Providers Care Food Expeditor Name Role Phone Migration, Doctor Unavailable Unavailable PROBLEMS Type Condition ICD9-CM Code MAO87-LX Code Onset Dates Condition S tatus SNOMED Code Problem Dysuria R30.0 Active 49239499 Problem Acid indigestion K30 Active 162 974574 Problem Yeast vaginitis B37.3 Active 7233 4000 Problem Screen for STD (sexually transmitted disease) Z11. 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.89 and Tuberculosis screening Z11.1 [facility] [address] [place] [id number] [address] [place] [address] Mar, Abscess L02.91 [facility] [address] [address] Dec, Encounter for test, result unk nown Z32.00 [facility] IN [facility] [address] [place] [id number] [address] [place] [address] November, Sore throat J02.9 ; Other sp ecified bacterial agents as the cause of diseases classified elsewhere B96.89 and Acute tonsillitis due to other specified organisms J03.80 [facility] [address] [place] [id number] [address] [place] [address] Jul, Acid indigestion K30 ; Sore throat (viral) J02.9 and Nose pain J34.89 [facility] [address] [place] [id number] [place] [address] Jan, Encounter for immunization Z23 [facility] IN [facility] [address] [address] 05 Dec, 2017 Sore throat J02.9 and Viral pharyngitis J02.9 [place] [address] [address] Dec, Screen for STD (sexually transmitted dis ease) Z11.3 ; Dysuria R30.0 and Yeast vaginitis B37.3 [place] [address] [address] November, Encounter for Depo-Provera contraception Z30.42 [place] [address] [address] Sep, Encounter for Depo-Provera contraception Z30.42 [facility] [address] [address] Sep, Flu-like symptoms R68.89 [facility] [address] [address] Jul, Viral gastroenteritis A08.4 [facility] [address] [address] Jun, Sore throat J02.9 and Acute nasopharyngitis J00 [place] [address] [address] Jun, Encounter for Depo-Provera contraception Z30.42 [place] [address] [address] Mar, [place] [address] [address] Mar, [facility] [address] [place] [address] 17 Mar, 2017 Sore throat J02.9 and Acute nasopharyngitis (common cold) J00 [place] [address] [address] Mar, Encounter for Depo-Provera contraception Z30.42 [place] [address] [address] Feb, Well child check Z00.129 ; Dietary couns eling Z71.3 ; Exercise counseling Z71.89 and Encounter for surveillance of injectable contraceptive Z30.42 [place] [address] [address] Dec, Encounter for Depo-Provera contraception Z30.42 [facility] [address] [place], [place] [id number] [address] [place] [address] Oct, Contusion of right leg, init ial encounter S80.11XA [address] [address] Sep, Encounter for Depo-Provera contraception Z30.[address] [address] Jul, Encounter for Depo-Provera contraception Z30.42 [place] [address] [address] Apr, Encounter for Depo-Provera contraception Z30.[address] [address] Feb, Hyperinsulinemia E16.1 and Obesity (BMI 30-39.9) E66.[address] [address] Feb, Encounter for Depo-Provera contraception Z30.42 [place] [address] [address] Jan, [facility] [address] [place] [id number] [address] [place] [address] 08 Dec, 2015 Congestion of both ears H93. 8X3 and Otalgia of right ear H92.[address] [address] Dec, [address] [place] [address] 26 Nov, 2015 Routine health maintenance Z00.00 ; Obes ity (BMI 30-39.9) E66.9 ; Family history of diabetes mellitus Z83.3 and Oral contraceptive pill surveillance Z30.41 [facility] [address] [address] 17 Nov, 2015 Routine health maintenance Z00.00 ; Enco unter for Depo-Provera contraception Z30.42 ; Obesity (BMI 30-39.9) E66.9 ; Family history of diabetes mellitus Z83.3 and Encounter for immunization Z23 [facility] [address] [address] 03 Nov, 2015 Abscess L02.91 [facility] [place] [address] [address] Oct, Encounter for PPD test Z11.1 [facility] [place] [address] [address] Oct, Pharyngitis J02.9 and Strep pharyngitis J02.0 [place] [address] [address] Oct, [facility] [address] [address] Oct, [facility] [address] [address] Sep, [facility] [address] [address] Sep, [facility] [address] [address] Sep, [facility] [address] [address] Sep, [facility] [address] [address] Aug, [facility] [address] [address] Aug, [facility] [address] [id number] [place] [address] Apr, [facility] [address] [id number] [place] [address] Apr, [facility] [address] [place] [id number] [place] [address] Mar, [facility] [address] [place] [id number] [place] [address] Mar, [facility] [address] [place] [id number] [place] [address] Mar, [facility] [address] [place] [id number] [place] [address] Mar, [facility] [address] [place] [id number] [place] [address] Jan, [facility] [address] [place] [id number] [place] [address] Jan, [facility] [address] [place] [id number] [place] [address] Jan, [facility] [address] [place] [id number] [place] [address] Jan, [facility] [address] [id number] [place] [address] Sep, [facility] [address] [place] [id number] [place] [address] Sep, IMMUNIZATIONS No Known Immunizations SOCIAL HISTORY Never Assessed REASON FOR VISIT PLAN OF CARE VITAL SIGNS Heart Rate 84 bpm 2013-10-11 Blood pressure systolic 105 mmHg 2013-10-11 Blood pressure diastolic 70 mmHg 2013-10-11 MEDICATIONS Unknown Medications RESULTS No Results PROCEDURES Procedure Date Ordered Result Body Site TOPICAL FLUORIDE VARNISH October 11, 2013 PROPHYLAXIS - CHILD October 11, 2013 PANORAMIC FILM SEE ALSO CODE [id number] October 11, 2013 BITEWINGS - FOUR FILMS October 11, 2013 COMP ORAL EVALUATION - NEW/EST PT October 11, 2013 INSTRUCTIONS MEDICATIONS ADMINISTERED No Known Medications MEDICAL [...]
--- OUTSIDE RECORDS SUMMARY | 2020-01-22 00:32 | XMS REPORT ---
Author Author Dick FRANKEL Organization [facility] Address [address] [place] [address] Care Team Providers Care Butadiene Compressor Operator Name Role Phone DEEPA FRANKEL Unavailable PROBLEMS Type Condition ICD9-CM Code DOF55-UZ Code Onset Dates Condition S tatus SNOMED Code Problem Dysuria R30.0 Active 74290710 Problem Screen for STD (sexually transmitted disease) Z11. 3 Active 960625444 Problem Obesity (BMI 30-39.9) E66.9 Active 218507497 Problem Family history of diabetes mellitus Z83.3 Active 475847960 Problem Yeast vaginitis B37.3 Active 7246 4000 Problem Hyperinsulinemia E16.1 Active 834 34411 ALLERGIES No Information ENCOUNTERS Encounter Location Date Diagnosis [facility] [address] [facility] [id number] [address] [place] [address] Jan, Encounter for immunization Z 23 [facility] [address] [place] [id number] [place] [address] Dec, Sore throat J02.9 and Viral pharyngitis J02.9 [facility] [address] [place] [id number] [address] [place] [address] Dec, Screen for STD (sexually tra nsmitted disease) Z11.3 ; Dysuria R30.0 and Yeast vaginitis B37.3 [facility] [address] [facility] [id number] [address] [place] [address] November, Encounter for Depo-Provera c ontraception Z30.42 [facility] [address] [facility] [id number] [address] [place] [address] Sep, Encounter for Depo-Provera c ontraception Z30.42 [facility] [address] [place] [id number] [address] [place] [address] 05 Sep, 2017 Flu-like symptoms R68.89 [facility] [address] [address] Jul, Viral gastroenteritis A08.4 [facility] IN [facility] [address] [place] [id number] [address] [place] [address] 08 Jun, 2017 Sore throat J02.9 and Acute nasopharyngitis J00 [facility] [address] [address] 07 Jun, 2017 Encounter for Depo-Provera c ontraception Z30.42 [place] [address] [address] 27 Mar, 2017 [place] [address] [address] 26 Mar, 2017 [facility] [address] [address] 17 Mar, 2017 Sore throat J02.9 and Acute nasopharyngitis (common cold) J00 [place] [address] [address] 06 Mar, 2017 Encounter for Depo-Provera c ontraception Z30.42 [place] [address] [address] 15 Feb, 2017 Well child check Z00.129 ; D ietary counseling Z71.3 ; Exercise counseling Z71.89 and Encounter for surveillance of injectable contraceptive Z30.42 [place] [address] [address] 15 Dec, 2016 Encounter for Depo-Provera c ontraception Z30.42 [facility] [address] [place] [id number] [place] [address] 18 Oct, 2016 Contusion of right leg, init ial encounter S80.11XA [place] [address] [address] Sep, Encounter for Depo-Provera c ontraception Z30.42 [place] [address] [address] Jul, Encounter for Depo-Provera c ontraception Z30.42 [place] [address] [address] Apr, Encounter for Depo-Provera c ontraception Z30.42 [place] [address] [address] Feb, Hyperinsulinemia E16.1 and O besity (BMI 30-39.9) E66.9 [place] [address] [address] Feb, Encounter for Depo-Provera c ontraception Z30.42 [place] [address] [address] Jan, [facility] [place] [address] [address] Dec, Congestion of both ears H93. 8X3 and Otalgia of right ear H92.01 [place] [address] [address] Dec, [place] [address] [address] November, Routine health maintenance Z 00.00 ; Obesity (BMI 30-39.9) E66.9 ; Family history of diabetes mellitus Z83.3 and Oral contraceptive pill surveillance Z30.41 [place] [address] [address] November, Routine health maintenance Z 00.00 ; Encounter for Depo-Provera contraception Z30.42 ; Obesity (BMI 30-39.9) E66.9 ; Family history of diabetes mellitus Z83.3 and Encounter for immunization Z23 [facility] [address] [id number] [address] [place] [address] November, Abscess L02.91 [facility] [address] [id number] [address] [place] [address] Oct, Encounter for PPD test Z11.1 [facility] [address] [id number] [address] [place] [address] 11 Oct, 2015 Pharyngitis J02.9 and Strep pharyngitis J02.0 [facility] [address] [id number] [address] [place] [address] 14 Oct, 2014 [facility] [address] [id number] [address] [place] [address] Oct, [facility] [address] [id number] [address] [place] [address] Sep, [facility] [address] [id number] [address] [place] [address] Sep, [facility] [address] [id number] [address] [place] [address] Sep, [facility] [address] [id number] [address] [place] [address] Sep, [facility] [address] [id number] [address] [place] [address] Aug, [facility] [address] [id number] [address] [place] [address] Aug, [facility] [address] [id number] [address] [place] [address] Apr, [facility] [address] [id number] [address] [place] [address] Apr, [facility] [address] [id number] [address] [place] [address] Mar, [facility] [address] [id number] [address] [place] [address] Mar, [facility] [address] [id number] [address] [place] [address] Mar, [facility] [address] [id number] [address] [place] [address] Mar, [facility] [address] [id number] [address] [place] [address] Jan, [facility] [address] [id number] [address] [place] [address] Jan, [facility] [address] [id number] [address] [place] [address] Jan, [facility] [address] [id number] [address] [place] [address] Jan, [facility] [address] [id number] [address] [place] [address] Sep, [facility] [address] [id number] [address] [place] [address] Sep, IMMUNIZATIONS Vaccine Route Administration Date Status ARVIND ([place] B) IM Intramuscular February 12, 2018 Administered SOCIAL HISTORY Never Assessed REASON FOR VISIT arvind Allison #2 -- judith mendoza PLAN OF CARE VITAL SIGNS MEDICATIONS Unknown Medications RESULTS No Results PROCEDURES Procedure Date Ordered Result Body Site ARVIND ([place] B) February 12, 2018 SINGLE IMMUNIZATION ADMIN February 12, 2018 INSTRUCTIONS MEDICATIONS ADMINISTERED No Known Medications MEDICAL (GENERAL) HISTORY Type Description Date Medical History mood disorder- patient state s bio moms doctor dx- and mom sold the medication that she was prescribed. Medical History Hyperinsulinemia Medical History Hyperinsulinemia Surgical History tympanostomy tubes placed- now out. 2005 Surgical History wisdom teeth extraction 2016
--- OUTSIDE RECORDS SUMMARY | 2020-01-22 00:32 | XMS REPORT ---
Author Dick Cassidy [facility] eClinicalWorks Address Unknown Phone Unavailable Care Team Providers Care Lens Blocker Name Role Phone ISAAC PIRES Unavailable Allergies No Known Allergies Problems Problem Type Condition Code Onset Dates Condition Statu s Problem Unspecified viral infection, in conditions classified elsewhere and of unspecified site 079.99 Active Problem Depressive disorder, not elsewhere classified 311 Active Problem Person with feared complaint in whom no diagnosis was made V65.5 Active Assessment Encounter for PPD test Z11.1 Activ e Problem Unspecified episodic mood disorder 296.90 Active Problem Dental examination V72.2 Active Medications No Known Medications Procedures Procedure Coding System Code Date TB INTRADERMAL TEST CPT-4 18019 November 03 16 Results No Known Results Summary Purpose eClinicalWorks Submission
--- OUTSIDE RECORDS SUMMARY | 2020-01-22 00:32 | XMS REPORT ---
Author Author Dick LAZCANO Organization [facility] Address [address] [place] [address] Care Team Providers Care Solar Installation Supervisor Name Role Phone RICHARDTerence ALLAN Unavailable PROBLEMS Type Condition ICD9-CM Code [id number] Code Onset Dates Condition S tatus SNOMED Code Problem Dysuria R30.0 Active 65323088 Problem Screen for STD (sexually transmitted disease) Z11. 3 Active 588594512 Problem Obesity (BMI 30-39.9) E66.9 Active 593073239 Problem Family history of diabetes mellitus Z83.3 Active 959748075 Problem Yeast vaginitis B37.3 Active 7293 4000 Problem Hyperinsulinemia E16.1 Active 834 13340 ALLERGIES Substance Reaction Event Type Date Status Bee Pollen hives Drug Allergy Dec, Active ENCOUNTERS Encounter Location Date Diagnosis [facility] [address] [phone] Jan, Encounter for immunization Z 23 [facility] IN [facility] [address] [place] [id number] [place] [phone] Dec, Sore throat J02.9 and Viral pharyngitis J02.9 [facility] [id number] [place] [phone] Dec, Screen for STD (sexually tra nsmitted disease) Z11.3 ; Dysuria R30.0 and Yeast vaginitis B37.3 [facility] [address] [place] [id number] [place] [phone] November, Encounter for Depo-Provera c ontraception Z30.42 [facility] [address] [place] [id number] [place] [phone] Sep, Encounter for Depo-Provera c ontraception Z30.42 [facility] [address] [facility] [id number] [address] [place] [phone] Sep, Flu-like symptoms R68.[address] [facility] [address] [facility] [id number] [address] [place] [phone] Jul, Viral gastroenteritis A08.[address] [facility] [place] [address] [place] [place] [id number] [place] [phone] 08 Jun, 2017 Sore throat J02.9 and Acute nasopharyngitis J00 [place] [address] [place] [id number] [place] [phone] 07 Jun, 2017 Encounter for Depo-Provera c ontraception Z30.42 [place] [address] [place] [id number] [place] [phone] 27 Mar, 2017 [place] [address] [place] [id number] [place] [phone] Mar, [facility] [address] [place] [id number] [place] [phone] 17 Mar, 2017 Sore throat J02.9 and Acute nasopharyngitis (common cold) J00 [place] [address] [place] [id number] [place] [phone] 06 Mar, 2017 Encounter for Depo-Provera c ontraception Z30.42 [place] [address] [place] [id number] [place] [phone] 15 Feb, 2017 Well child check Z00.129 ; D ietary counseling Z71.3 ; Exercise counseling Z71.89 and Encounter for surveillance of injectable contraceptive Z30.42 [place] [address] [phone] 15 Dec, 2016 Encounter for Depo-Provera c ontraception Z30.[address] [facility] [address] [place] [id number] [place] [phone] 18 Oct, 2016 Contusion of right leg, init ial encounter S80.11XA [facility] [address] [place] [id number] [place] [phone] Sep, Encounter for Depo-Provera c ontraception Z30.42 [place] [address] [place] [id number] [place] [phone] Jul, Encounter for Depo-Provera c ontraception Z30.42 [place] [address] [phone] Apr, Encounter for Depo-Provera c ontraception Z30.42 [place] [address] [phone] Feb, Hyperinsulinemia E16.1 and O besity (BMI 30-39.9) E66.9 [place] [address] [address] Feb, Encounter for Depo-Provera c ontraception Z30.42 [place] [address] [phone] Jan, [facility] [address] [phone] Dec, Congestion of both ears H93. 8X3 and Otalgia of right ear H92.01 [place] [address] [phone] Dec, [place] [address] [phone] November, Routine health maintenance Z 00.00 ; Obesity (BMI 30-39.9) E66.9 ; Family history of diabetes mellitus Z83.3 and Oral contraceptive pill surveillance Z30.41 [place] [address] [place] [id number] [place] [phone] November, Routine health maintenance Z 00.00 ; Encounter for Depo-Provera contraception Z30.42 ; Obesity (BMI 30-39.9) E66.9 ; Family history of diabetes mellitus Z83.3 and Encounter for immunization Z23 [facility] [address] [facility] [id number] [address] [place] [phone] November, Abscess L02.91 [facility] [address] [facility] [id number] [address] [place] [phone] Oct, Encounter for PPD test Z11.[address] [facility] [address] [facility] [id number] [address] [place] [phone] Oct, Pharyngitis J02.9 and Strep pharyngitis J02.0 [facility] [address] [id number] [address] [place] [phone] Oct, [facility] [address] [facility] [id number] [address] [place] [phone] Oct, [facility] [address] [facility] [id number] [address] [place] [phone] Sep, [facility] [address] [id number] [address] [place] [phone] Sep, [facility] [address] [facility] [id number] [address] [place] [phone] Sep, [facility] [address] [facility] [id number] [address] [place] [phone] Sep, [facility] [address] [facility] [id number] [address] [place] [phone] Aug, [facility] [address] [id number] [address] [place] [phone] Aug, [facility] [address] [facility] [id number] [address] [place] [phone] Apr, [facility] [address] [facility] [id number] [address] [place] [phone] Apr, [facility] [address] [facility] [id number] [address] [place] [phone] Mar, [facility] [address] [id number] [address] [place] [phone] Mar, [facility] [address] [id number] [address] [place] [phone] Mar, [facility] [address] [id number] [address] [place] [phone] Mar, [facility] [address] [id number] [address] [place] [phone] Jan, [facility] [address] [id number] [address] [place] [phone] Jan, [facility] [address] [id number] [address] [place] [phone] Jan, [facility] [address] [id number] [address] [place] [phone] Jan, [facility] [address] [id number] [address] [place] [phone] Sep, [facility] [address] [id number] [address] [place] [phone] Sep, IMMUNIZATIONS No Known Immunizations SOCIAL HISTORY Never Assessed REASON FOR VISIT STD check-twoodeMDA PLAN OF CARE Activity Details Follow Up prn or pending lab/cultures Reason: VITAL SIGNS Height 62 in 2017-12-15 Weight 226.8 lbs 2017-12-15 Temperature 99.2 degrees Fahrenheit 2017-12-15 Heart Rate 72 bpm 2017-12-15 Respiratory Rate 20 2017-12-15 BMI 41.48 kg/m2 2017-12-15 Blood pressure systolic 112 mmHg 2017-12-15 Blood pressure diastolic 82 mmHg 2017-12-15 MEDICATIONS Medication Instructions Dosage Frequency Start Date End Date Duration S tatus MetFORMIN HCl ER 500 MG Orally twice a day APPT NEEDED FOR R EFILL 1 tablet with a meal Dec, 60 days Active Diflucan 150 MG Orally Once a day 1 tablet 24h Dec, 4 Adrien, 2 018 03 days Active Depo-Provera 150 MG/ML 1 ml Feb, Active RESULTS No Results PROCEDURES Procedure Date Ordered Result Body Site [facility] December 15, 2017 Bacterial Vaginosis In House December 15, 2017 URINALYSIS, AUTO, W/O SCOPE December 15, 2017 URINE TEST December 15, 2017 INSTRUCTIONS MEDICATIONS ADMINISTERED No Known Medications MEDICAL (GENERAL) HISTORY Type Description Date Medical History mood disorder- patient state s bio moms doctor dx- and mom sold the medication that she was prescribed. Medical History Hyperinsulinemia Medical History Hyperinsulinemia Surgical History tympanostomy tubes placed- now out. 2004 Surgical History wisdom teeth extraction 2015
--- OUTSIDE RECORDS SUMMARY | 2020-01-22 00:32 | XMS REPORT ---
Author Author Dick LAZCANO Organization [facility] Address [address] [place] [address] Care Team Providers Care Exam Proctor Name Role Phone JALEESA ALLAN Unavailable PROBLEMS Type Condition ICD9-CM Code XBM11-HY Code Onset Dates Condition S tatus SNOMED Code Problem Encounter for immunization Z23 Act deya [id number] Problem Encounter for surveillance of injectable contraceptive Z30.42 Active 216210969 Problem Hyperinsulinemia E16.1 Active 834 50014 Problem Family history of diabetes mellitus Z83.3 Active 235768659 Problem Obesity (BMI 30-39.9) E66.9 Active 536928545 Problem Oral contraceptive pill surveillance Z30.41 Active 779112838 Problem Routine health maintenance Z00.00 Act deya [id number] ALLERGIES No Information ENCOUNTERS Encounter Location Date Diagnosis [facility] [address] [place] [id number] [address] [place] [phone] Sep, Encounter for Depo-Provera c ontraception Z30.42 [facility] [address] [place] [id number] [address] [place] [phone] Sep, Flu-like symptoms R68.89 [facility] [address] [place] [address] [id number] [address] [place] [id number] Jul, Viral gastroenteritis A08.4 [facility] [address] [facility] [id number] [address] [place] [address] Jun, Sore throat J02.9 and Acute nasopharyngitis J00 [facility] [address] [facility] [id number] [address] [place] [phone] Jun, Encounter for Depo-Provera c ontraception Z30.42 [facility] [address] [place] [id number] [address] [place] [phone] 27 Mar, 2017 [facility] [address] [place] [id number] [address] [place] [phone] Mar, [facility] [address] [phone] 17 Mar, 2017 Sore throat J02.9 and Acute nasopharyngitis (common cold) J00 [place] [address] [address] 06 Mar, 2017 Encounter for Depo-Provera c ontraception Z30.42 [place] [address] [address] Feb, Well child check Z00.129 ; D ietary counseling Z71.3 ; Exercise counseling Z71.89 and Encounter for surveillance of injectable contraceptive Z30.42 [place] [address] [address] Dec, Encounter for Depo-Provera c ontraception Z30.42 [facility] [address] [address] Oct, Contusion of right leg, init ial encounter S80.11XA [place] [address] [place] [id number] [address] [place] [address] Sep, Encounter for Depo-Provera c ontraception Z30.42 [place] [address] [place] [id number] [place] [address] Jul, Encounter for Depo-Provera c ontraception Z30.42 [place] [address] [address] Apr, Encounter for Depo-Provera c ontraception Z30.42 [place] [address] [place] [id number] [place] [address] 16 Feb, 2016 Hyperinsulinemia E16.1 and O besity (BMI 30-39.9) E66.9 [place] [address] [address] Feb, Encounter for Depo-Provera c ontraception Z30.42 [place] [address] [address] Jan, [facility] [place] [address] [address] Dec, Congestion of both ears H93. 8X3 and Otalgia of right ear H92.01 [place] [address] [address] Dec, [place] [address] [address] November, Routine health maintenance Z 00.00 ; Obesity (BMI 30-39.9) E66.9 ; Family history of diabetes mellitus Z83.3 and Oral contraceptive pill surveillance Z30.41 [place] [address] [address] November, Routine health maintenance Z 00.00 ; Encounter for Depo-Provera contraception Z30.42 ; Obesity (BMI 30-39.9) E66.9 ; Family history of diabetes mellitus Z83.3 and Encounter for immunization Z23 [facility] [place] [address] [address] November, Abscess L02.91 [facility] [place] [address] [address] Oct, Encounter for PPD test Z11.1 [facility] [address] [address] Oct, Pharyngitis J02.9 and Strep pharyngitis J02.0 [place] [address] [address] Oct, [place] [address] [address] 13 Oct, 2014 [facility] [address] [id number] [address] [place] [address], [place] [address] Sep, [facility] [address] [id number] [address] [place] [address], [place] [address] Sep, [facility] [address] [id number] [address] [place] [address], [place] [address] Sep, [facility] [address] [id number] [address] [place] [address], [place] [address] Sep, [facility] [address] [id number] [address] [place] [address], [place] [address] Aug, [facility] [address] [id number] [address] [place] [address], [place] [address] Aug, [facility] [address] [id number] [address] [place] [address], [place] [address] Apr, [facility] [address] [id number] [address] [place] [address], [place] [address] Apr, [facility] [address] [id number] [address] [place] [address], [place] [address] Mar, [facility] [address] [id number] [address] [place] [address], [place] [address] Mar, [facility] [address] [id number] [address] [place] [address], [place] [address] 15 Mar, 2014 [facility] [address] [id number] [address] [place] [address], [place] [id number] 15 Mar, 2014 [facility] [address] [id number] [address] [place] [address], [place] [address] Jan, [facility] [address] [id number] [address] [place] [address], [place] [address] Jan, [facility] [address] [id number] [address] [place] [address], [place] [address] Jan, [facility] [address] [facility] [id number] [address] [address] Jan, [facility] [address] [facility] [id number] [address] [place] [phone] Sep, [facility] [address] [facility] [id number] [address] [place] [phone] Sep, IMMUNIZATIONS Vaccine Route Administration Date Status DEPO PROVERA (150 MG/ML) IM Intramuscular Mar 22, 2017 Admini stered SOCIAL HISTORY Never Assessed REASON FOR VISIT DEPO---[place],CCMA PLAN OF CARE Activity Details Follow Up 3 Months Reason: VITAL SIGNS MEDICATIONS Unknown Medications RESULTS No Results PROCEDURES Procedure Date Ordered Result Body Site URINE TEST Mar 22, 2017 DEPO PROVERA (150 MG/ML) Mar 22, 2017 THER/PROPH/DIAG INJ, SC/IM Mar 22, 2017 INSTRUCTIONS MEDICATIONS ADMINISTERED No Known Medications MEDICAL (GENERAL) HISTORY Type Description Date Medical History mood disorder- patient state s bio moms doctor dx- and mom sold the medication that she was prescribed. Surgical History tympanostomy tubes placed- now out. 2004 Surgical History wisdom teeth extraction 2015
--- OUTSIDE RECORDS SUMMARY | 2020-01-22 00:33 | XMS REPORT ---
Author Author Dick FRANKEL Organization [facility] Address [address] [place] [address] Care Team Providers Care Affirmative Action Officer Name Role Phone DEEPA FRANKEL Unavailable PROBLEMS Type Condition ICD9-CM Code NOT32-OG Code Onset Dates Condition S tatus SNOMED Code Problem Encounter for immunization Z23 Act deya [id number] Problem Encounter for surveillance of injectable contraceptive Z30.42 Active 185465743 Problem Hyperinsulinemia E16.1 Active 834 93778 Problem Family history of diabetes mellitus Z83.3 Active 535714484 Problem Oral contraceptive pill surveillance Z30.41 Active 395728124 Problem Routine health maintenance Z00.00 Act deya 225522501 Problem Obesity (BMI 30-39.9) E66.9 Active 554342102 ALLERGIES No Known Allergies SOCIAL HISTORY No smoking Hx information available PLAN OF CARE VITAL SIGNS MEDICATIONS No Known Medications RESULTS Name Result Date Reference Range TEST, URINE (IN HOUSE) 2016-05-03 RESULTS Negative Lot # [id number] Control + Exp date PROCEDURES Procedure Date Ordered Related Diagnosis Body Site URINE TEST May 03, 2016 DEPO PROVERA (150 MG/ML) May 03, 2016 THER/PROPH/DIAG INJ, SC/IM May 03, 2016 IMMUNIZATIONS Vaccine Route Administration Date Status DEPO PROVERA (150 MG/ML) IM Intramuscular May 03, 2016 Admini stered
--- OUTSIDE RECORDS SUMMARY | 2020-01-22 00:33 | XMS REPORT ---
Author Author Dick IFNE Organization [facility] Address [address] [place] [address] Care Team Providers Care Plate Colorer Name Role Phone GISELLA FINE Unavailable PROBLEMS Type Condition ICD9-CM Code ZDV94-AZ Code Onset Dates Condition S tatus SNOMED Code Problem Dysuria R30.0 Active 94041326 Problem Acid indigestion K30 Active 162 409999 Problem Yeast vaginitis B37.3 Active 7271 4000 Problem Screen for STD (sexually transmitted disease) Z11. 3 Active 255444720 ALLERGIES No Information ENCOUNTERS Encounter Location Date Diagnosis [facility] [address] [place] [id number] [address] [place] [phone] Dec, Encounter for test , result unknown Z32.00 [facility] [address] [place] [id number] [address] [place] [address] November, Sore throat J02.9 ; Other sp ecified bacterial agents as the cause of diseases classified elsewhere B96.89 and Acute tonsillitis due to other specified organisms J03.80 [facility] [address] [facility] [id number] [address] [place] [phone] Jul, Acid indigestion K30 ; Sore throat (viral) J02.9 and Nose pain J34.89 [facility] [address] [facility] [id number] [address] [place] [phone] Jan, Encounter for immunization Z 23 [facility] [address] [facility] [id number] [address] [place] [address] Dec, Sore throat J02.9 and Viral pharyngitis J02.9 [facility] [address] [place] [id number] [address] [place] [phone] Dec, Screen for STD (sexually tra nsmitted disease) Z11.3 ; Dysuria R30.0 and Yeast vaginitis B37.3 [facility] [address] [place] [id number] [place] [address] November, Encounter for Depo-Provera c ontraception Z30.42 [facility] [address] [place] [id number] [place] [phone] Sep, Encounter for Depo-Provera c ontraception Z30.42 [facility] [id number] [address] [place] [address] Sep, Flu-like symptoms R68.89 [facility] [address] [place] [id number] [place] [address] Jul, Viral gastroenteritis A08.4 [facility] [place] [address] [address] Jun, Sore throat J02.9 and Acute nasopharyngitis J00 [place] [address] [address] Jun, Encounter for Depo-Provera c ontraception Z30.42 [facility] [address] [place] [id number] [address] [place] [phone] Mar, [place] [address] [place] [id number] [address] [place] [address] Mar, [facility] [address] [place] [id number] [address] [place] [address] Mar, Sore throat J02.9 and Acute nasopharyngitis (common cold) J00 [place] [address] [place] [id number] [place] [phone] 06 Mar, 2017 Encounter for Depo-Provera c ontraception Z30.42 [place] [address] [place] [id number] [place] [address] 15 Aug, 2017 Well child check Z00.129 ; D ietary counseling Z71.3 ; Exercise counseling Z71.89 and Encounter for surveillance of injectable contraceptive Z30.42 [place] [address] [address] 15 Dec, 2016 Encounter for Depo-Provera c ontraception Z30.42 [facility] [address] [place] [address] [id number] [place] [phone] Oct, Contusion of right leg, init ial encounter S80.11XA [place] [address] [place] [id number] [place] [address] Sep, Encounter for Depo-Provera c ontraception Z30.42 [place] [address] [address] Jul, Encounter for Depo-Provera c ontraception Z30.42 [place] [address] [address] Apr, Encounter for Depo-Provera c ontraception Z30.42 [place] [address] [address] Feb, Hyperinsulinemia E16.1 and O besity (BMI 30-39.9) E66.9 [place] [address] [address] Feb, Encounter for Depo-Provera c ontraception Z30.42 [place] [address] [place] [id number] [place] [address] Jan, [facility] [address] [address] 08 Dec, 2015 Congestion of both ears H93. 8X3 and Otalgia of right ear H92.01 [place] [address] [place] [id number] [place] [address] Dec, [place] [address] [place] [address] November, Routine health maintenance Z 00.00 ; Obesity (BMI 30-39.9) E66.9 ; Family history of diabetes mellitus Z83.3 and Oral contraceptive pill surveillance Z30.41 [facility] [address] [place] [id number] [place] [address] 17 Nov, 2015 Routine health maintenance Z 00.00 ; Encounter for Depo-Provera contraception Z30.42 ; Obesity (BMI 30-39.9) E66.9 ; Family history of diabetes mellitus Z83.3 and Encounter for immunization Z23 [facility] [address] [place] [id number] [place] [address] November, Abscess L02.91 [facility] [address] [place] [id number] [address] [place] [address] Oct, Encounter for PPD test Z11.1 [facility] [address] [place] [id number] [address] [place] [address] Oct, Pharyngitis J02.9 and Strep pharyngitis J02.0 [facility] [address] [place] [id number] [address] [place] [address] 14 Oct, 2014 [facility] [address] [place] [id number] [address] [place] [address] Oct, [facility] [address] [place] [address] Sep, [facility] [address] [place] [id number] [address] [place] [address] Sep, [facility] [address] [place] [address] Sep, [facility] [address] [place] [id number] [place] [address] Sep, [facility] [address] [place] [id number] [address] [place] [address] Aug, [facility] [address] [facility] [id number] [address] [place] [address] Aug, [facility] [address] [id number] [address] [place] [address] Apr, [facility] [address] [id number] [address] [place] [phone] Apr, [facility] [address] [id number] [address] [place] [phone] Mar, [facility] [address] [id number] [address] [place] [phone] Mar, [facility] [address] [id number] [address] [place] [id number] Mar, [facility] [address] [id number] [address] [place] [phone] Mar, [facility] [address] [id number] [address] [place] [phone] Jan, [facility] [address] [id number] [address] [place] [phone] Jan, [facility] [address] [id number] [address] [place] [phone] Jan, [facility] [address] [id number] [address] [place] [phone] Jan, [facility] [address] [id number] [address] [place] [address] Sep, [facility] [address] [id number] [address] [place] [address] Sep, IMMUNIZATIONS No Known Immunizations SOCIAL HISTORY [...]
--- OUTSIDE RECORDS SUMMARY | 2020-01-22 00:33 | XMS REPORT ---
Author Author Dcik NEWMAN Organization [facility] Address [address] [place] [address] Care Team Providers Care Jewelry Sorter Name Role Phone BRIE NEWMAN Unavailable PROBLEMS Type Condition ICD9-CM Code WUN91-MA Code Onset Dates Condition S tatus SNOMED Code Problem Dysuria R30.0 Active 27637957 Problem Acid indigestion K30 Active 162 567041 Problem Yeast vaginitis B37.3 Active 7268 4000 Problem Screen for STD (sexually transmitted disease) Z11. 3 Active [id number] ALLERGIES No Information ENCOUNTERS Encounter Location Date Diagnosis [facility] [address] [place] [address] [id number] [address] [place] [address] Dec, Encounter for test , result unknown Z32.00 [facility] [address] [place] [address] [id number] [address] [place] [address] November, Sore throat J02.9 ; Other sp ecified bacterial agents as the cause of diseases classified elsewhere B96.89 and Acute tonsillitis due to other specified organisms J03.80 [facility] [address] [place] [address] [id number] [address] [place] [address] Jul, Acid indigestion K30 ; Sore throat (viral) J02.9 and Nose pain J34.89 [facility] [address] [id number] [address] [place] [address] Jan, Encounter for immunization Z 23 [facility] [address] [id number] [address] [place] [address] Dec, Sore throat J02.9 and Viral pharyngitis J02.9 [facility] [address] [place] [id number] [address] [place] [address] Dec, Screen for STD (sexually tra nsmitted disease) Z11.3 ; Dysuria R30.0 and Yeast vaginitis B37.3 [facility] [address] [place] [id number] [place] [address] November, Encounter for Depo-Provera c ontraception Z30.42 [facility] [address] [id number] [address] [place] [phone] Sep, Encounter for Depo-Provera c ontraception Z30.42 [facility] [address] [id number] [address] [place] [phone] Sep, Flu-like symptoms R68.89 [facility] [address] [place] [address] [id number] [place] [phone] Jul, Viral gastroenteritis A08.4 [facility] [place] [address] [place] [id number] [place] [id number] 08 Jun, 2017 Sore throat J02.9 and Acute nasopharyngitis J00 [place] [address] [address] 07 Jun, 2017 Encounter for Depo-Provera c ontraception Z30.42 [place] [address] [place] [id number] [address] [place] [address] Mar, [place] [address] [place] [id number] [address] [place] [phone] Mar, [facility] [address] [id number] [address] [place] [id number] 17 Mar, 2017 Sore throat J02.9 and Acute nasopharyngitis (common cold) J00 [place] [address] [place] [id number] [address] [place] [address] 06 Mar, 2017 Encounter for Depo-Provera c ontraception Z30.42 [place] [address] [place] [id number] [address] [place] [address] 15 Aug, 2017 Well child check Z00.129 ; D ietary counseling Z71.3 ; Exercise counseling Z71.89 and Encounter for surveillance of injectable contraceptive Z30.42 [place] [address] [address] 15 Dec, 2016 Encounter for Depo-Provera c ontraception Z30.42 [facility] [address] [address] Oct, Contusion of right leg, init ial encounter S80.11XA [place] [address] [address] Sep, Encounter for Depo-Provera c ontraception Z30.42 [place] [address] [address] Jul, Encounter for Depo-Provera c ontraception Z30.42 [place] [address] [address] Apr, Encounter for Depo-Provera c ontraception Z30.42 [place] [address] [address] Feb, Hyperinsulinemia E16.1 and O besity (BMI 30-39.9) E66.9 [place] [address] [address] Feb, Encounter for Depo-Provera c ontraception Z30.42 [place] [address] [place] [id number] [address] [place] [address] Jan, [facility] [address] [address] 08 Dec, 2015 Congestion of both ears H93. 8X3 and Otalgia of right ear H92.01 [place] [address] [address] 06 Dec, 2015 [place] [address] [place] [address] 26 Nov, 2015 Routine health maintenance Z 00.00 ; Obesity (BMI 30-39.9) E66.9 ; Family history of diabetes mellitus Z83.3 and Oral contraceptive pill surveillance Z30.41 [facility] [address] [address] 17 Nov, 2015 Routine health maintenance Z 00.00 ; Encounter for Depo-Provera contraception Z30.42 ; Obesity (BMI 30-39.9) E66.9 ; Family history of diabetes mellitus Z83.3 and Encounter for immunization Z23 [facility] [address] [place] [id number] [address] [place] [address] November, Abscess L02.91 [facility] [address] [address] Oct, Encounter for PPD test Z11.1 [facility] [address] [address] Oct, Pharyngitis J02.9 and Strep pharyngitis J02.0 [facility] [address] [address] 14 Oct, 2014 [facility] [address] [address] Oct, [facility] [address] [place] [address] [id number] [address] [place] [address] Sep, [facility] [address] [address] Sep, [facility] [address] [address] Sep, [facility] [address] [address] Sep, [facility] [address] [place] [address] [id number] [address] [place] [address] Aug, [facility] [address] [id number] [address] [place] [address] Aug, [facility] [address] [id number] [address] [place] [address] Apr, [facility] [address] [id number] [address] [place] [phone] Apr, [facility] [address] [id number] [address] [place] [address] Mar, [facility] [address] [id number] [address] [place] [phone] Mar, [facility] [address] [id number] [address] [place] [address] Mar, [facility] [address] [id number] [address] [place] [address] Mar, [facility] [address] [id number] [address] [place] [phone] Jan, [facility] [address] [id number] [address] [place] [address] Jan, [facility] [address] [id number] [address] [place] [address] Jan, [facility] [address] [id number] [address] [place] [address] Jan, [facility] [address] [id number] [address] [place] [address] Sep, [facility] [address] [id number] [address] [place] [address] Sep, IMMUNIZATIONS No Known Immunizations SOCIAL HISTORY [...]
--- OUTSIDE RECORDS SUMMARY | 2020-01-22 00:33 | XMS REPORT ---
Author Author Dick CAMARENA Organization [facility] [place] Address [address] [place] [address] Care Team Providers Care Bandage Wrapping Machine Operator Name Role Phone LEESA CAMARENA Unavailable PROBLEMS Type Condition ICD9-CM Code FYR93-HG Code Onset Dates Condition S tatus SNOMED Code Problem Dysuria R30.0 Active 56624858 Problem Acid indigestion K30 Active 162 498546 Problem Yeast vaginitis B37.3 Active 1419 4000 Problem Screen for STD (sexually transmitted disease) Z11. 3 Active [id number] ALLERGIES No Information ENCOUNTERS Encounter Location Date Diagnosis [place] [id number] [facility] [place] [id number] [address] [place] [phone] Dec, Encounter for test , result unknown Z32.00 [facility] [address] [facility] [place] [id number] [address] [place] [address] November, Sore throat J02.9 ; Other sp ecified bacterial agents as the cause of diseases classified elsewhere B96.89 and Acute tonsillitis due to other specified organisms J03.80 [facility] [address] [place] [address] [id number] [address] [place] [phone] Jul, Acid indigestion K30 ; Sore throat (viral) J02.9 and Nose pain J34.89 [facility] [place] [address] [facility] [place] [id number] [address] [place] [phone] Jan, Encounter for immunization Z 23 [place] [id number] [address] [place] [phone] Dec, Sore throat J02.9 and Viral pharyngitis J02.9 [place] [address] [facility] [id number] [address] [place] [phone] 01 Adrien, 2018 Screen for STD (sexually tra nsmitted disease) Z11.3 ; Dysuria R30.0 and Yeast vaginitis B37.3 [place] [address] [facility] [place] [id number] [place] [address] November, Encounter for Depo-Provera c ontraception Z30.42 [facility] [place] [address] [place] [id number] [address] [place] [phone] Sep, Encounter for Depo-Provera c ontraception Z30.42 [facility] [address] [facility] [id number] [address] [place] [phone] Sep, Flu-like symptoms R68.89 [facility] [place] [address] [place] [id number] [place] [address] Jul, Viral gastroenteritis A08.4 [facility] [place] [address] [address] [place] [id number] [address] [place] [phone] 08 Jun, 2017 Sore throat J02.9 and Acute nasopharyngitis J00 [place] [address] [address] 07 Jun, 2017 Encounter for Depo-Provera c ontraception Z30.42 [place] [address] [place] [id number] [address] [place] [id number] 27 Mar, 2017 [place] [address] [place] [id number] [address] [place] [phone] Mar, [facility] [address] [place] [address] [id number] [address] [place] [phone] 17 Mar, 2017 Sore throat J02.9 and Acute nasopharyngitis (common cold) J00 [place] [address] [place] [id number] [address] [place] [phone] 06 Mar, 2017 Encounter for Depo-Provera c ontraception Z30.42 [place] [address] [facility] [id number] [address] [place] [id number] 15 Feb, 2017 Well child check Z00.129 ; D ietary counseling Z71.3 ; Exercise counseling Z71.89 and Encounter for surveillance of injectable contraceptive Z30.42 [place] [address] [address] Dec, Encounter for Depo-Provera c ontraception Z30.42 [facility] [address] [place] [address] [id number] [place] [address] Oct, Contusion of right leg, init ial encounter S80.11XA [place] [address] [place] [id number] [place] [address] Sep, Encounter for Depo-Provera c ontraception Z30.42 [place] [address] [address] Jul, Encounter for Depo-Provera c ontraception Z30.42 [place] [address] [address] Apr, Encounter for Depo-Provera c ontraception Z30.42 [place] [address] [address] Feb, Hyperinsulinemia E16.1 and O besity (BMI 30-39.9) E66.9 [place] [address] [address] Feb, Encounter for Depo-Provera c ontraception Z30.42 [place] [address] [place] [id number] [address] [place] [phone] Jan, [facility] [address] [place] [address] [id number] [place] [phone] 08 Dec, 2015 Congestion of both ears H93. 8X3 and Otalgia of right ear H92.01 [place] [address] [place] [id number] [place] [address] 06 Dec, 2015 [place] [address] [address] 26 Nov, 2015 Routine health maintenance Z 00.00 ; Obesity (BMI 30-39.9) E66.9 ; Family history of diabetes mellitus Z83.3 and Oral contraceptive pill surveillance Z30.41 [facility] [place] [address] [id number] [address] [place] [address] 17 Nov, 2015 Routine health maintenance Z 00.00 ; Encounter for Depo-Provera contraception Z30.42 ; Obesity (BMI 30-39.9) E66.9 ; Family history of diabetes mellitus Z83.3 and Encounter for immunization Z23 [facility] [address] [facility] [id number] [address] [place] [phone] November, Abscess L02.91 [facility] [address] [facility] [id number] [address] [place] [phone] Oct, Encounter for PPD test Z11.1 [facility] [address] [facility] [id number] [address] [place] [phone] Oct, Pharyngitis J02.9 and Strep pharyngitis J02.0 [facility] [place] [address] [id number] [address] [place] [id number] 14 Oct, 2014 [facility] [place] [address] [facility] [id number] [address] [place] [phone] Oct, [facility] [place] [address] [facility] [id number] [address] [place] [phone] Sep, [facility] [place] [address] [facility] [id number] [address] [place] [phone] Sep, [facility] [place] [address] [facility] [id number] [address] [place] [phone] Sep, [facility] [place] [address] [facility] [id number] [address] [place] [phone] Sep, [facility] [place] [address] [facility] [id number] [address] [place] [phone] Aug, [facility] [place] [address] [id number] [address] [place] [phone] Aug, [facility] [place] [address] [id number] [address] [place] [phone] Apr, [facility] [place] [address] [id number] [address] [place] [phone] Apr, [facility] [place] [address] [id number] [address] [place] [phone] Mar, [facility] [place] [address] [id number] [address] [place] [phone] Mar, [facility] [place] [address] [id number] [address] [place] [phone] Mar, [facility] [place] [address] [id number] [address] [place] [phone] Mar, [facility] [place] [address] [id number] [address] [place] [phone] Jan, [facility] [place] [address] [id number] [address] [place] [phone] Jan, [facility] [place] [address] [id number] [address] [place] [phone] Jan, [facility] [place] [address] [id number] [address] [place] [phone] Jan, [facility] [place] [address] [id number] [address] [place] [phone] Sep, [facility] [place] [address] [id number] [address] [place] [phone] Sep, IMMUNIZATIONS No Known Immunizations SOCIAL HISTORY Never Assessed REASON FOR VISIT PLAN OF CARE VITAL SIGNS Height 62 in 2014-10-10 Weight 183 lbs 2014-10-10 Temperature 98.1 degrees Fahrenheit 2014-10-10 Heart Rate 90 bpm 2014-10-10 Respiratory Rate 16 2014-10-10 Blood pressure systolic 116 mmHg 2014-10-10 Blood pressure diastolic 80 mmHg 2014-10-10 MEDICATIONS Unknown Medications RESULTS No Results PROCEDURES [...]
--- OUTSIDE RECORDS SUMMARY | 2020-01-22 00:33 | XMS REPORT ---
Author Author VISHNU Parkervalentina WOOELE Organization [facility] Address [address] [place] [address] Care Team Providers Care Msw Name Role Phone MARESEYAL Mcgrath Unavailable PROBLEMS Type Condition ICD9-CM Code TFU30-QK Code Onset Dates Condition S tatus SNOMED Code Problem Dysuria R30.0 Active 95067211 Problem Screen for STD (sexually transmitted disease) Z11. 3 Active 824503911 Problem Obesity (BMI 30-39.9) E66.9 Active 687889877 Problem Family history of diabetes mellitus Z83.3 Active 024167912 Problem Yeast vaginitis B37.3 Active 7293 4000 Problem Hyperinsulinemia E16.1 Active 834 52173 ALLERGIES No Information ENCOUNTERS Encounter Location Date Diagnosis [facility] [address] [address] Dec, Screen for STD (sexually tra nsmitted disease) Z11.3 ; Dysuria R30.0 and Yeast vaginitis B37.3 [facility] [address] [place] [id number] [address] [place] [address] November, Encounter for Depo-Provera c ontraception Z30.42 [facility] [address] [facility] [id number] [address] [place] [phone] Sep, Encounter for Depo-Provera c ontraception Z30.42 [facility] [address] [facility] [id number] [address] [place] [phone] Sep, Flu-like symptoms R68.89 [facility] [address] [facility] [id number] [address] [place] [phone] Jul, Viral gastroenteritis A08.4 [facility] [address] [facility] [id number] [address] [place] [phone] 08 Jun, 2017 Sore throat J02.9 and Acute nasopharyngitis J00 [facility] [address] [address] 07 Jun, 2017 Encounter for Depo-Provera c ontraception Z30.42 [facility] [address] [address] 27 Mar, 2017 [facility] [address] [address] 26 Mar, 2017 [facility] [address] [address] 17 Mar, 2017 Sore throat J02.9 and Acute nasopharyngitis (common cold) J00 [place] [address] [address] 06 Mar, 2017 Encounter for Depo-Provera c ontraception Z30.42 [place] [address] [address] 15 Feb, 2017 Well child check Z00.129 ; D ietary counseling Z71.3 ; Exercise counseling Z71.89 and Encounter for surveillance of injectable contraceptive Z30.42 [place] [address] [address] 15 Dec, 2016 Encounter for Depo-Provera c ontraception Z30.42 [facility] [address] [address] Oct, Contusion of right leg, init ial encounter S80.11XA [place] [address] [address] Sep, Encounter for Depo-Provera c ontraception Z30.42 [place] [address] [address] Jul, Encounter for Depo-Provera c ontraception Z30.42 [place] [address] [place] [id number] [address] [place] [address] Apr, Encounter for Depo-Provera c ontraception Z30.42 [place] [address] [address] Feb, Hyperinsulinemia E16.1 and O besity (BMI 30-39.9) E66.[address] [address] Feb, Encounter for Depo-Provera c ontraception Z30.42 [place] [address] [address] Jan, [facility] [address] [address] Dec, Congestion of both ears H93. 8X3 and Otalgia of right ear H92.[address] [address] Dec, [place] [address] [address] November, Routine health maintenance Z 00.00 ; Obesity (BMI 30-39.9) E66.9 ; Family history of diabetes mellitus Z83.3 and Oral contraceptive pill surveillance Z30.[address] [address] November, Routine health maintenance Z 00.00 ; Encounter for Depo-Provera contraception Z30.42 ; Obesity (BMI 30-39.9) E66.9 ; Family history of diabetes mellitus Z83.3 and Encounter for immunization Z23 [facility] [address] [place] [phone] November, Abscess L02.91 [facility] [place] [id number] [address] [place] [address] Oct, Encounter for PPD test Z11.1 [facility] [address] [place] [address], [place] [address] 11 Oct, 2015 Pharyngitis J02.9 and Strep pharyngitis J02.0 [facility] [address] [id number] [address] [place] [address], [place] [address] 14 Oct, 2014 [facility] [address] [id number] [address] [place] [address], [place] [address] 13 Oct, 2014 [facility] [address] [id number] [address] [place] [phone] 27 Sep, 2014 [facility] [address] [id number] [address] [place] [address], [place] [address] 27 Sep, 2014 [facility] [address] [id number] [address] [place] [phone] Sep, [facility] [address] [id number] [address] [place] [phone] Sep, [facility] [address] [id number] [address] [place] [phone] Aug, [facility] [address] [id number] [address] [place] [phone] Aug, [facility] [address] [id number] [address] [place] [phone] Apr, [facility] [address] [id number] [address] [place] [phone] Apr, [facility] [address] [id number] [address] [place] [phone] Mar, [facility] [address] [id number] [address] [place] [address] Mar, [facility] [address] [id number] [address] [place] [phone] 15 Mar, 2014 [facility] [address] [id number] [address] [place] [phone] 15 Mar, 2014 [facility] [address] [facility] [id number] [address] [place] [phone] Jan, [facility] [address] [facility] [id number] [address] [place] [phone] Jan, [facility] [address] [facility] [id number] [address] [place] [phone] Jan, [facility] [address] [facility] [id number] [address] [place] [phone] Jan, [facility] [address] [facility] [id number] [address] [place] [phone] Sep, [facility] [address] [facility] [id number] [address] [place] [phone] Sep, IMMUNIZATIONS Vaccine Route Administration Date Status DEPO PROVERA (150 MG/ML) IM Intramuscular Jun 22, 2017 Admini stered SOCIAL HISTORY Never Assessed REASON FOR VISIT Depo Provera injection--tcuppettRN PLAN OF CARE Activity Details Follow Up 3 Months Reason: VITAL SIGNS MEDICATIONS No Known Medications RESULTS Name Result Date Reference Range TEST, URINE (IN HOUSE) 2017-06-22 RESULTS Negative Lot # [id number] Control + Exp date 10/14/18 PROCEDURES Procedure Date Ordered Result Body Site DEPO PROVERA (150 MG/ML) Jun 22, 2017 THER/PROPH/DIAG INJ, SC/IM Jun 22, 2017 URINE TEST Jun 22, 2017 INSTRUCTIONS MEDICATIONS ADMINISTERED No Known Medications MEDICAL (GENERAL) HISTORY Type Description Date Medical History mood disorder- patient state s bio moms doctor dx- and mom sold the medication that she was prescribed. Medical History Hyperinsulinemia Surgical History tympanostomy tubes placed- now out. 2004 Surgical History wisdom teeth extraction 2015
--- OUTSIDE RECORDS SUMMARY | 2020-01-22 00:33 | XMS REPORT ---
Author Author Dick MARES Organization [facility] Address [address] [place] [address] Care Team Providers Care Window Assembler Name Role Phone MARESCHILO McgrathELE Unavailable PROBLEMS Type Condition ICD9-CM Code [id number] Code Onset Dates Condition S tatus SNOMED Code Problem Encounter for immunization Z23 Act deya [id number] Problem Encounter for surveillance of injectable contraceptive Z30.42 Active 815427464 Problem Hyperinsulinemia E16.1 Active 834 87456 Problem Family history of diabetes mellitus Z83.3 Active 232277788 Problem Obesity (BMI 30-39.9) E66.9 Active 469939994 Problem Oral contraceptive pill surveillance Z30.41 Active 366857893 Problem Routine health maintenance Z00.00 Act deya [id number] ALLERGIES No Known Allergies SOCIAL HISTORY No smoking Hx information available PLAN OF CARE VITAL SIGNS MEDICATIONS No Known Medications RESULTS Name Result Date Reference Range TEST, URINE (IN HOUSE) 2016-07-19 RESULTS negative Lot # [id number] Control + Exp date PROCEDURES Procedure Date Ordered Related Diagnosis Body Site URINE TEST Jul 19, 2016 DEPO PROVERA (150 MG/ML) Jul 19, 2016 THER/PROPH/DIAG INJ, SC/IM Jul 19, 2016 IMMUNIZATIONS Vaccine Route Administration Date Status DEPO PROVERA (150 MG/ML) IM Intramuscular Jul 19, 2016 Admini stered
--- OUTSIDE RECORDS SUMMARY | 2020-01-22 00:33 | XMS REPORT ---
Author Dick Mckinney Organization [employer] Address Unknown Phone Unavailable Care Team Providers Care Freight Forwarder Name Role Phone RAGINI LEONG CP Unavailable Allergies, Adverse Reactions, Alerts Substance Reaction Event Type N.K.D.A. Info Not Available Non Drug Allergy Problems Problem Type Condition Code Onset Dates Condition Statu s Problem Unspecified viral infection, in conditions classified elsewhere and of unspecified site 079.99 Active Problem Depressive disorder, not elsewhere classified 311 Active Problem Person with feared complaint in whom no diagnosis was made V65.5 Active Assessment Abscess L02.91 Active Problem Unspecified episodic mood disorder 296.90 Active Problem Dental examination V72.2 Active Medications Medication Code System Code Instructions Start Date End Date Status Dosage Bactroban [facility] [address]-34 2 % Externally Three times a day November 17, 2015 December 01, 2015 1 application to affected ar ea Bactrim DS [facility] [address]-09 800-160 MG Orally Twice a day November 17, 2015 November 27, 2015 1 tablet Procedures Procedure Coding System Code Date Office Visit, Est Pt., Level 3 CPT-4 97942 M ay 2015 Vital Signs Date/Time: November 17, 2015 Temperature 98.6 F BMIPercentile 99.01 % Weight 212.8 lbs Height 62.5 in BMI 38.30 Index Blood Pressure Diastolic 76 mmHg Blood Pressure Systolic 118 mmHg Cardiac Monitoring Heart Rate 84 bpm Wt Percentile 98.7 % Ht Percentile 27.85 % Results No Known Results Summary Purpose [employer] Submission
--- OUTSIDE RECORDS SUMMARY | 2020-01-22 00:33 | XMS REPORT ---
Author Author VISHNU Dickvalentina BIRCH Organization [facility] Address [address] [place] [address] Care Team Providers Care Riveting Machine Operator Tape Control Name Role Phone AMRESEYAL Mcgrath Unavailable PROBLEMS Type Condition ICD9-CM Code UOZ08-JT Code Onset Dates Condition S tatus SNOMED Code Problem Encounter for immunization Z23 Act deya [id number] Problem Encounter for surveillance of injectable contraceptive Z30.42 Active 624134388 Problem Hyperinsulinemia E16.1 Active 834 44600 Problem Family history of diabetes mellitus Z83.3 Active 721190044 Problem Obesity (BMI 30-39.9) E66.9 Active 646931786 Problem Oral contraceptive pill surveillance Z30.41 Active 583676307 Problem Routine health maintenance Z00.00 Act deya [id number] ALLERGIES No Information SOCIAL HISTORY Never Assessed PLAN OF CARE VITAL SIGNS MEDICATIONS Unknown Medications RESULTS Name Result Date Reference Range TEST, URINE (IN HOUSE) 2016-10-04 RESULTS Negative Lot # [id number] Control + Exp date 2018-02-13 PROCEDURES Procedure Date Ordered Result Body Site URINE TEST October 04, 2016 DEPO PROVERA (150 MG/ML) October 04, 2016 THER/PROPH/DIAG INJ, SC/IM October 04, 2016 IMMUNIZATIONS Vaccine Route Administration Date Status DEPO PROVERA (150 MG/ML) IM Intramuscular October 04, 2016 Admini stered MEDICAL (GENERAL) HISTORY Type Description Date Medical History mood disorder- patient state s bio moms doctor dx- and mom sold the medication that she was prescribed. Surgical History tympanostomy tubes placed- now out. 2005 Surgical History wisdom teeth extraction 2015
--- OUTSIDE RECORDS SUMMARY | 2020-01-22 00:33 | XMS REPORT ---
Author Author Dick MOODY Organization [facility] Address [address] [place] [address] Care Team Providers Care Proof Plate Maker Name Role Phone MOODYMIRANDA Unavailable PROBLEMS Type Condition ICD9-CM Code WQD30-RS Code Onset Dates Condition S tatus SNOMED Code Problem Dysuria R30.0 Active 26354505 Problem Screen for STD (sexually transmitted disease) Z11. 3 Active 814774587 Problem Obesity (BMI 30-39.9) E66.9 Active 180944798 Problem Family history of diabetes mellitus Z83.3 Active 995670756 Problem Yeast vaginitis B37.3 Active 7293 4000 Problem Hyperinsulinemia E16.1 Active 834 28179 ALLERGIES Substance Reaction Event Type Date Status Bee Pollen hives Drug Allergy Jun, Active ENCOUNTERS Encounter Location Date Diagnosis [facility] [address] [address] Dec, Screen for STD (sexually tra nsmitted disease) Z11.3 ; Dysuria R30.0 and Yeast vaginitis B37.3 [facility] [address] [place] [id number] [address] [place] [address] November, Encounter for Depo-Provera c ontraception Z30.42 [facility] [address] [place] [id number] [address] [place] [address] Sep, Encounter for Depo-Provera c ontraception Z30.42 [facility] [address] [place] [id number] [address] [place] [address] Sep, Flu-like symptoms R68.[address] [facility] [address] [place] [id number] [address] [place] [phone] 19 Porter, 2018 Viral gastroenteritis A08.[address] [facility] [address] [facility] [id number] [address] [place] [address] 08 Jun, 2017 Sore throat J02.9 and Acute nasopharyngitis J00 [facility] [address] [facility] [id number] [address] [place] [address] 07 Jun, 2017 Encounter for Depo-Provera c ontraception Z30.42 [facility] [address] [place] [id number] [place] [address] 27 Mar, 2017 [place] [address] [place] [id number] [place] [address] 26 Mar, [address] [facility] [address] [place] [id number] [place] [address] 17 Mar, 2017 Sore throat J02.9 and Acute nasopharyngitis (common cold) J00 [place] [address] [address] 06 Mar, 2017 Encounter for Depo-Provera c ontraception Z30.42 [place] [address] [address] 15 Feb, 2017 Well child check Z00.129 ; D ietary counseling Z71.3 ; Exercise counseling Z71.89 and Encounter for surveillance of injectable contraceptive Z30.42 [place] [address] [place] [id number] [address] [place] [address] 15 Dec, 2016 Encounter for Depo-Provera c ontraception Z30.[address] [facility] [address] [place] [id number] [address] [place] [phone] Oct, Contusion of right leg, init ial encounter S80.11XA [place] [address] [place] [id number] [address] [place] [address] Sep, Encounter for Depo-Provera c ontraception Z30.42 [place] [address] [address] Jul, Encounter for Depo-Provera c ontraception Z30.42 [place] [address] [address] Apr, Encounter for Depo-Provera c ontraception Z30.42 [place] [address] [place] [id number] [place] [address] Feb, Hyperinsulinemia E16.1 and O besity (BMI 30-39.9) E66.9 [place] [address] [address] Feb, Encounter for Depo-Provera c ontraception Z30.42 [place] [address] [address] Jan, [facility] [place] [address] [address] Dec, Congestion of both ears H93. 8X3 and Otalgia of right ear H92.01 [place] [address] [address] Dec, [place] [address] [address] November, Routine health maintenance Z 00.00 ; Obesity (BMI 30-39.9) E66.9 ; Family history of diabetes mellitus Z83.3 and Oral contraceptive pill surveillance Z30.41 [place] [address] [address] November, Routine health maintenance Z 00.00 ; Encounter for Depo-Provera contraception Z30.42 ; Obesity (BMI 30-39.9) E66.9 ; Family history of diabetes mellitus Z83.3 and Encounter for immunization Z23 [facility] [place] [address] [address] November, Abscess L02.91 [facility] [place] [address] [address] Oct, Encounter for PPD test Z11.[address] [facility] [address] [id number] [address] [place] [address] 11 Oct, 2015 Pharyngitis J02.9 and Strep pharyngitis J02.0 [facility] [address] [id number] [address] [place] [id number] 14 Oct, 2014 [facility] [address] [id number] [address] [place] [id number] 13 Oct, 2014 [facility] [address] [id number] [address] [place] [phone] Sep, [facility] [address] [id number] [address] [place] [phone] 27 Sep, 2014 [facility] [address] [id number] [address] [place] [address] Sep, [facility] [address] [id number] [address] [place] [address] Sep, [facility] [address] [id number] [address] [place] [phone] Aug, [facility] [address] [id number] [address] [place] [address] Aug, [facility] [address] [id number] [address] [place] [phone] Apr, [facility] [address] [id number] [address] [place] [phone] Apr, [facility] [address] [id number] [address] [place] [phone] Mar, [facility] [address] [id number] [address] [place] [phone] Mar, [facility] [address] [id number] [address] [place] [phone] 15 Mar, 2014 [facility] [address] [id number] [address] [place] [phone] Mar, [facility] [address] [facility] [id number] [address] [place] [phone] Jan, [facility] [address] [facility] [id number] [address] [place] [phone] Jan, [facility] [address] [facility] [id number] [address] [place] [phone] Jan, [facility] [address] [facility] [id number] [address] [place] [phone] Jan, [facility] [address] [facility] [id number] [address] [place] [phone] Sep, [facility] [address] [facility] [id number] [address] [place] [phone] Sep, IMMUNIZATIONS No Known Immunizations SOCIAL HISTORY Never Assessed REASON FOR VISIT sore throat and cough for 2 weeks. hui, pcp...none PLAN OF CARE Activity Details Follow Up prn Reason: VITAL SIGNS Height 62 in 2017-06-23 Weight 213.8 lbs 2017-06-23 Temperature 97.4 degrees Fahrenheit 2017-06-23 Heart Rate 84 bpm 2017-06-23 Respiratory Rate 20 2017-06-23 BMI 39.10 kg/m2 2017-06-23 Blood pressure systolic 122 mmHg 2017-06-23 Blood pressure diastolic 72 mmHg 2017-06-23 MEDICATIONS Medication Instructions Dosage Frequency Start Date End Date Duration S tatus MetFORMIN HCl ER 500 MG Orally twice a day APPT NEEDED FOR R EFILL 1 tablet with a meal Dec, 60 days Not-Taking Depo-Provera 150 MG/ML 1 ml Feb, Not-Taking Sudafed 30 MG Orally every 6 hrs prn congestion 1 tablet as needed Dec, Not-Taking Ibuprofen 200 MG Orally every 6 hrs 3 tablet as needed 6h Not-Taking Flagyl 500 mg Orally 2 times a day 1 tablet 12h Mar, 07 days Not-Taking Trazodone HCl 50 MG Orally Once a day 1 tablet at bedtime as needed 24h Not-Taking RESULTS Name Result Date Reference Range STREP A (IN HOUSE) 2017-06-23 STREP A negative Control + Lot # [id number] Exp date 2018 05 30 PROCEDURES Procedure Date Ordered Result Body Site STREP A ASSAY W/OPTIC Jun 23, 2017 INSTRUCTIONS MEDICATIONS ADMINISTERED No Known Medications MEDICAL (GENERAL) HISTORY Type Description Date Medical History mood disorder- patient state s bio moms doctor dx- and mom sold the medication that she was prescribed. Medical History Hyperinsulinemia Surgical History tympanostomy tubes placed- now out. 2004 Surgical History wisdom teeth extraction 2015
--- OUTSIDE RECORDS SUMMARY | 2020-01-22 00:33 | XMS REPORT ---
Author Author Dick Zuniga [facility] Address [address] [place] [address] Care Team Providers Care Costume Mistress Name Role Phone SHAZIA Zuniga Unavailable PROBLEMS Type Condition ICD9-CM Code GIZ70-RO Code Onset Dates Condition S tatus SNOMED Code Problem Dysuria R30.0 Active 22793609 Problem Acid indigestion K30 Active 162 578690 Problem Yeast vaginitis B37.3 Active 7293 4000 Problem Screen for STD (sexually transmitted disease) Z11. 3 Active [id number] ALLERGIES No Information ENCOUNTERS Encounter Location Date Diagnosis [facility] [id number] [place] [phone] Dec, Encounter for test , result unknown Z32.00 [facility] [id number] [place] [address] November, Sore throat J02.9 ; Other sp ecified bacterial agents as the cause of diseases classified elsewhere B96.89 and Acute tonsillitis due to other specified organisms J03.80 [facility] [id number] [place] [phone] Jul, Acid indigestion K30 ; Sore throat (viral) J02.9 and Nose pain J34.89 [facility] [id number] [place] [phone] Jan, Encounter for immunization Z 23 [facility] [id number] [place] [phone] 05 Dec, 2017 Sore throat J02.9 and Viral pharyngitis J02.9 [facility] [id number] [place] [phone] Dec, Screen for STD (sexually tra nsmitted disease) Z11.3 ; Dysuria R30.0 and Yeast vaginitis B37.3 [place] [id number] [place] [phone] November, Encounter for Depo-Provera c ontraception Z30.42 [place] [address] [id number] [place] [phone] Sep, Encounter for Depo-Provera c ontraception Z30.42 [facility][note 3][id number] [place] [phone] Sep, Flu-like symptoms R68.89 [facility] [id number] [place] [phone] Jul, Viral gastroenteritis A08.4 [facility] [place] [id number] [place] [phone] 08 Jun, 2017 Sore throat J02.9 and Acute nasopharyngitis J00 [place] [address] [address] 07 Jun, 2017 Encounter for Depo-Provera c ontraception Z30.42 [place] [id number] [id number] [place] [address] Mar, [place] [address] [address] Mar, [facility] [id number] [place] [phone] 17 Mar, 2017 Sore throat J02.9 and Acute nasopharyngitis (common cold) J00 [place] [id number] [place] [phone] 06 Mar, 2017 Encounter for Depo-Provera c ontraception Z30.42 [place] [id number] [place] [address] Feb, Well child check Z00.129 ; D ietary counseling Z71.3 ; Exercise counseling Z71.89 and Encounter for surveillance of injectable contraceptive Z30.42 [place] [address] [address] Dec, Encounter for Depo-Provera c ontraception Z30.42 [facility] [address] [address] Oct, Contusion of right leg, init ial encounter S80.11XA [place] [address] [address] Sep, Encounter for Depo-Provera c ontraception Z30.42 [place] [address] [address] Jul, Encounter for Depo-Provera c ontraception Z30.42 [place] [address] [address] Apr, Encounter for Depo-Provera c ontraception Z30.42 [place] [address] [address] Feb, Hyperinsulinemia E16.1 and O besity (BMI 30-39.9) E66.9 [place] [address] [address] Feb, Encounter for Depo-Provera c ontraception Z30.42 [place] [address] [address] Jan, [facility] [address] [address] 08 Dec, 2015 Congestion of both ears H93. 8X3 and Otalgia of right ear H92.01 [place] [address] [address] Dec, [place] [id number] [place] [address] 26 Nov, 2015 Routine health maintenance Z 00.00 ; Obesity (BMI 30-39.9) E66.9 ; Family history of diabetes mellitus Z83.3 and Oral contraceptive pill surveillance Z30.41 [facility] [id number] [place] [address] 17 Nov, 2015 Routine health maintenance Z 00.00 ; Encounter for Depo-Provera contraception Z30.42 ; Obesity (BMI 30-39.9) E66.9 ; Family history of diabetes mellitus Z83.3 and Encounter for immunization Z23 [facility] [address] [address] November, Abscess L02.91 [facility] [address] [address] Oct, Encounter for PPD test Z11.1 [facility] [address] [address] Oct, Pharyngitis J02.9 and Strep pharyngitis J02.0 [facility] [id number] [place] [address] Oct, [facility] [id number] [place] [address] Oct, [facility] [id number] [place] [address] Sep, [facility] [id number] [place] [phone] Sep, [facility] [id number] [place] [phone] Sep, [facility] [address] [id number] [place] [phone] Sep, [facility] [id number] [place] [address] Aug, [facility] [address] [id number] [address] [place] [phone] Aug, [facility] [address] [id number] [address] [place] [phone] Apr, [facility] [address] [id number] [address] [place] [phone] Apr, [facility] [address] [id number] [address] [place] [phone] Mar, [facility] [address] [id number] [address] [place] [phone] Mar, [facility] [address] [id number] [address] [place] [phone] Mar, [facility] [address] [id number] [address] [place] [phone] Mar, [facility] [address] [id number] [address] [place] [phone] Jan, [facility] [address] [id number] [address] [place] [phone] Jan, [facility] [address] [id number] [address] [place] [phone] Jan, [facility] [address] [id number] [address] [place] [phone] Jan, [facility] [address] [id number] [address] [place] [phone] Sep, [facility] [address] [id number] [address] [place] [phone] Sep, IMMUNIZATIONS No Known Immunizations SOCIAL HISTORY Never Assessed REASON FOR VISIT PLAN OF CARE VITAL SIGNS Height 62 in 2014-08-27 Weight 191 lbs 2014-08-27 Temperature 98.8 degrees Fahrenheit 2014-08-27 Heart Rate 104 bpm 2014-08-27 Respiratory Rate 16 2014-08-27 Blood pressure systolic 114 mmHg 2014-08-27 Blood pressure diastolic 84 mmHg 2014-08-27 MEDICATIONS Unknown Medications RESULTS No Results PROCEDURES Procedure Date Ordered Result Body Site INFLUENZA ASSAY W/OPTIC Aug 27, 2014 INSTRUCTIONS MEDICATIONS ADMINISTERED No Known Medications [...]
--- OUTSIDE RECORDS SUMMARY | 2020-01-22 00:33 | XMS REPORT ---
Author Author Dick MARES Organization [facility] Address [address] [place] [address] Care Team Providers Care Steamer Tender Name Role Phone MARESEYAL Mcgrath Unavailable PROBLEMS Type Condition ICD9-CM Code AMU44-NW Code Onset Dates Condition S tatus SNOMED Code Problem Dysuria R30.0 Active 15257385 Problem Screen for STD (sexually transmitted disease) Z11. 3 Active 840571137 Problem Obesity (BMI 30-39.9) E66.9 Active 319132249 Problem Family history of diabetes mellitus Z83.3 Active 800534990 Problem Yeast vaginitis B37.3 Active 7209 4000 Problem Hyperinsulinemia E16.1 Active 834 22731 ALLERGIES No Information ENCOUNTERS Encounter Location Date Diagnosis [facility] [address] [address] Dec, Sore throat J02.9 and Viral pharyngitis J02.9 [facility] [address] [id number] [address] [place] [phone] Dec, Screen for STD (sexually tra nsmitted disease) Z11.3 ; Dysuria R30.0 and Yeast vaginitis B37.3 [facility] [address] [id number] [place] [address] November, Encounter for Depo-Provera c ontraception Z30.42 [facility] [address] [id number] [place] [address] Sep, Encounter for Depo-Provera c ontraception Z30.42 [facility] [id number] [place] [address] Sep, Flu-like symptoms R68.89 [facility] [address] [place] [address] Jul, Viral gastroenteritis A08.4 [facility] [id number] [place] [phone] 08 Jun, 2017 Sore throat J02.9 and Acute nasopharyngitis J00 [place] [address] [id number] [place] [address] 07 Jun, 2017 Encounter for Depo-Provera c ontraception Z30.42 [place] [address] [place] [id number] [place] [phone] 27 Mar, 2017 [place] [address] [address] 26 Mar, 2017 [facility] [id number] [place] [address] 17 Mar, 2017 Sore throat J02.9 and Acute nasopharyngitis (common cold) J00 [place] [address] [address] [address] 06 Mar, 2017 Encounter for Depo-Provera c ontraception Z30.42 [place] [address] [address] 15 Feb, 2017 Well child check Z00.129 ; D ietary counseling Z71.3 ; Exercise counseling Z71.89 and Encounter for surveillance of injectable contraceptive Z30.42 [place] [address] [address] 15 Dec, 2016 Encounter for Depo-Provera c ontraception Z30.42 [facility] [address] [address] Oct, Contusion of right leg, init ial encounter S80.11XA [place] [address] [id number] [place] [address] Sep, Encounter for Depo-Provera c ontraception Z30.42 [place] [address] [place] [id number] [place] [address] Jul, Encounter for Depo-Provera c ontraception Z30.42 [place] [address] [address] Apr, Encounter for Depo-Provera c ontraception Z30.42 [place] [address] [address] Feb, Hyperinsulinemia E16.1 and O besity (BMI 30-39.9) E66.9 [place] [address] [address] Feb, Encounter for Depo-Provera c ontraception Z30.42 [place] [address] [address] Jan, [facility] [address] [address] Dec, Congestion of both ears H93. 8X3 and Otalgia of right ear H92.01 [place] [address] [address] Dec, [place] [address] [address] November, Routine health maintenance Z 00.00 ; Obesity (BMI 30-39.9) E66.9 ; Family history of diabetes mellitus Z83.3 and Oral contraceptive pill surveillance Z30.41 [place] [id number] [place] [address] November, Routine health maintenance Z 00.00 ; Encounter for Depo-Provera contraception Z30.42 ; Obesity (BMI 30-39.9) E66.9 ; Family history of diabetes mellitus Z83.3 and Encounter for immunization Z23 [facility] [id number] [place] [address] November, Abscess L02.91 [facility] [address] [id number] [address] [place] [phone] 20 Oct, 2015 Encounter for PPD test Z11.1 [facility] [address] [id number] [address] [place] [phone] 11 Oct, 2016 Pharyngitis J02.9 and Strep pharyngitis J02.0 [facility] [address] [id number] [address] [place] [phone] 14 Oct, 2014 [facility] [address] [id number] [address] [place] [phone] 13 Oct, 2014 [facility] [address] [id number] [address] [place] [id number] Sep, [facility] [address] [id number] [address] [place] [phone] Sep, [facility] [address] [id number] [address] [place] [phone] Sep, [facility] [address] [id number] [address] [place] [phone] Sep, [facility] [address] [id number] [address] [place] [phone] Aug, [facility] [address] [id number] [address] [place] [address] Aug, [facility] [address] [id number] [address] [place] [phone] Apr, [facility] [address] [id number] [address] [place] [phone] Apr, [facility] [address] [id number] [address] [place] [phone] Mar, [facility] [address] [id number] [address] [place] [phone] Mar, [facility] [address] [id number] [address] [place] [phone] Mar, [facility] [address] [id number] [address] [place] [phone] Mar, [facility] [address] [id number] [address] [place] [phone] Jan, [facility] [address] [id number] [address] [place] [phone] Jan, [facility] [address] [id number] [address] [place] [phone] Jan, [facility] [address] [id number] [address] [place] [phone] Jan, [facility] [address] [id number] [address] [place] [phone] Sep, [facility] [address] [id number] [address] [place] [phone] Sep, IMMUNIZATIONS Vaccine Route Administration Date Status DEPO PROVERA (150 MG/ML) IM Intramuscular September 18, 2017 Admini stered SOCIAL HISTORY Never Assessed REASON FOR VISIT Depo Provera injection-GAIL [place] PLAN OF CARE VITAL SIGNS MEDICATIONS No Known Medications RESULTS Name Result Date Reference Range TEST, URINE (IN HOUSE) 2017-09-18 RESULTS negative Lot # [id number] Control + Exp date 09/2018 PROCEDURES Procedure Date Ordered Result Body Site URINE TEST September 18, 2017 DEPO PROVERA (150 MG/ML) September 18, 2017 THER/PROPH/DIAG INJ, SC/IM September 18, 2017 INSTRUCTIONS MEDICATIONS ADMINISTERED No Known Medications MEDICAL (GENERAL) HISTORY Type Description Date Medical History mood disorder- patient state s bio moms doctor dx- and mom sold the medication that she was prescribed. Medical History Hyperinsulinemia Medical History Hyperinsulinemia Surgical History tympanostomy tubes placed- now out. 2004 Surgical History wisdom teeth extraction 2015
--- OUTSIDE RECORDS SUMMARY | 2020-01-22 00:33 | XMS REPORT ---
Author Author Dick MARES Organization [employer] Address Unknown Phone Unavailable Care Team Providers Care Roll Winder Name Role Phone EYAL MARES CP Unavailable Allergies No Known Allergies Problems Problem Type Condition Code Onset Dates Condition Statu s Problem Obesity (BMI 30-39.9) E66.9 Active Problem Family history of diabetes mellitus Z83.3 Active Problem Routine health maintenance Z00.00 A ctive Problem Encounter for immunization Z23 A ctive Problem Oral contraceptive pill surveillance Z30.41 Active Problem Encounter for Depo-Provera contraception Z30.42 Active Medications Medication Code System Code Instructions Start Date End Date Status Dosage MetFORMIN HCl ER [facility] [address]-13 500 MG Orally t wice a day APPT NEEDED FOR REFILL December 21, 2015 1 tablet with a meal Results No Known Results Summary Purpose [employer] Submission
--- OUTSIDE RECORDS SUMMARY | 2020-01-22 00:33 | XMS REPORT ---
Author Author Dick Bartholomew Doctor Organization [facility] Address Unknown Phone Unavailable Care Team Providers Care Seasonal Customer Service Associate Name Role Phone Migration, Doctor Unavailable Unavailable PROBLEMS Type Condition ICD9-CM Code SXR22-EC Code Onset Dates Condition S tatus SNOMED Code Problem Dysuria R30.0 Active 05897774 Problem Acid indigestion K30 Active 162 524506 Problem Yeast vaginitis B37.3 Active 7293 4000 Problem Screen for STD (sexually transmitted disease) Z11. 3 Active [id number] ALLERGIES No Information ENCOUNTERS Encounter Location Date Diagnosis [facility] [address] [address] Jul, Acid indigestion K30 ; Sore throat (viral) J02.9 and Nose pain J34.89 [facility] [address] [facility] [id number] [address] [place] [phone] Jan, Encounter for immunization Z 23 [facility] [address] [place] [id number] [place] [phone] Dec, Sore throat J02.9 and Viral pharyngitis J02.9 [facility] [address] [place] [id number] [address] [place] [phone] Dec, Screen for STD (sexually tra nsmitted disease) Z11.3 ; Dysuria R30.0 and Yeast vaginitis B37.3 [facility] [address] [facility] [id number] [address] [place] [phone] November, Encounter for Depo-Provera c ontraception Z30.42 [facility] [address] [place] [id number] [address] [place] [phone] Sep, Encounter for Depo-Provera c ontraception Z30.42 [facility] [address] [place] [id number] [address] [place] [phone] 05 Sep, 2017 Flu-like symptoms R68.89 [facility] [address] [address] Jul, Viral gastroenteritis A08.4 [facility] [address] [place] [id number] [address] [place] [phone] 08 Jun, 2017 Sore throat J02.9 and Acute nasopharyngitis J00 [place] [address] [address] 07 Jun, 2017 Encounter for Depo-Provera c ontraception Z30.42 [place] [address] [address] 27 Mar, 2017 [place] [address] [address] 26 Mar, 2017 [facility] [address] [address] 17 Mar, 2017 Sore throat J02.9 and Acute nasopharyngitis (common cold) J00 [place] [address] [address] 06 Mar, 2017 Encounter for Depo-Provera c ontraception Z30.42 [place] [address] [address] 15 Feb, 2017 Well child check Z00.129 ; D ietary counseling Z71.3 ; Exercise counseling Z71.89 and Encounter for surveillance of injectable contraceptive Z30.42 [place] [address] [address] 15 Dec, 2016 Encounter for Depo-Provera c ontraception Z30.42 [facility] [address] [place] [id number] [place] [address] 18 Oct, 2016 Contusion of right leg, init ial encounter S80.11XA [place] [address] [address] Sep, Encounter for Depo-Provera c ontraception Z30.42 [place] [address] [address] Jul, Encounter for Depo-Provera c ontraception Z30.42 [place] [address] [address] Apr, Encounter for Depo-Provera c ontraception Z30.42 [place] [address] [address] Feb, Hyperinsulinemia E16.1 and O besity (BMI 30-39.9) E66.9 [place] [address] [address] Feb, Encounter for Depo-Provera c ontraception Z30.42 [place] [address] [address] Jan, [facility] [address] [address] Dec, Congestion of both ears H93. 8X3 and Otalgia of right ear H92.01 [place] [address] [address] Dec, [place] [address] [address] November, Routine health maintenance Z 00.00 ; Obesity (BMI 30-39.9) E66.9 ; Family history of diabetes mellitus Z83.3 and Oral contraceptive pill surveillance Z30.41 [place] [address] [address] November, Routine health maintenance Z 00.00 ; Encounter for Depo-Provera contraception Z30.42 ; Obesity (BMI 30-39.9) E66.9 ; Family history of diabetes mellitus Z83.3 and Encounter for immunization Z23 [facility] [address] [id number] [address] [place] [phone] November, Abscess L02.91 [facility] [address] [id number] [address] [place] [phone] 20 Oct, 2015 Encounter for PPD test Z11.1 [facility] [address] [id number] [address] [place] [phone] 11 Oct, 2015 Pharyngitis J02.9 and Strep pharyngitis J02.0 [facility] [address] [id number] [address] [place] [phone] 14 Oct, 2014 [facility] [address] [id number] [address] [place] [phone] Oct, [facility] [address] [id number] [address] [place] [phone] Sep, [facility] [address] [id number] [address] [place] [phone] Sep, [facility] [address] [id number] [address] [place] [phone] Sep, [facility] [address] [id number] [address] [place] [phone] Sep, [facility] [address] [id number] [address] [place] [phone] Aug, [facility] [address] [id number] [address] [place] [phone] Aug, [facility] [address] [id number] [address] [place] [phone] Apr, [facility] [address] [id number] [address] [place] [phone] Apr, [facility] [address] [id number] [address] [place] [phone] Mar, [facility] [address] [id number] [address] [place] [phone] Mar, [facility] [address] [id number] [address] [place] [phone] Mar, [facility] [address] [id number] [address] [place] [phone] Mar, [facility] [address] [id number] [address] [place] [phone] Jan, [facility] [address] [id number] [address] [place] [phone] Jan, [facility] [address] [id number] [address] [place] [phone] Jan, [facility] [address] [id number] [address] [place] [phone] Jan, [facility] [address] [id number] [address] [place] [phone] Sep, [facility] [address] [id number] [address] [place] [phone] Sep, IMMUNIZATIONS No Known Immunizations SOCIAL HISTORY Never Assessed REASON FOR VISIT EMR-[facility] PLAN OF CARE VITAL SIGNS MEDICATIONS Unknown [...]
--- OUTSIDE RECORDS SUMMARY | 2020-01-22 00:33 | XMS REPORT ---
Author Author Dick Bartholomew Doctor Organization [facility] Address Unknown Phone Unavailable Care Team Providers Care Movie Shot Camera Operator Name Role Phone Migration, Doctor Unavailable Unavailable PROBLEMS Type Condition ICD9-CM Code VKD05-ZM Code Onset Dates Condition S tatus SNOMED Code Problem Dysuria R30.0 Active 65987494 Problem Acid indigestion K30 Active 162 533210 Problem Yeast vaginitis B37.3 Active 7293 4000 Problem Screen for STD (sexually transmitted disease) Z11. 3 Active [id number] ALLERGIES No Information ENCOUNTERS Encounter Location Date Diagnosis [facility] [address] [address] Jul, Acid indigestion K30 ; Sore throat (viral) J02.9 and Nose pain J34.89 [facility] [address] [facility] [id number] [address] [place] [phone] Jan, Encounter for immunization Z 23 [facility] [address] [place] [id number] [place] [phone] Dec, Sore throat J02.9 and Viral pharyngitis J02.9 [facility] [address] [address] [id number] [address] [place] [address] Dec, Screen for STD (sexually tra nsmitted disease) Z11.3 ; Dysuria R30.0 and Yeast vaginitis B37.3 [facility] [address] [facility] [id number] [address] [place] [address] November, Encounter for Depo-Provera c ontraception Z30.42 [facility] [address] [place] [id number] [address] [place] [phone] Sep, Encounter for Depo-Provera c ontraception Z30.42 [facility] [address] [place] [id number] [address] [place] [phone] 05 Sep, 2017 Flu-like symptoms R68.89 [facility] [address] [address] Jul, Viral gastroenteritis A08.4 [facility] [address] [place] [id number] [address] [place] [phone] 08 Jun, 2017 Sore throat J02.9 and Acute nasopharyngitis J00 [place] [address] [address] 07 Jun, 2017 Encounter for Depo-Provera c ontraception Z30.42 [place] [address] [address] 27 Mar, 2017 [place] [address] [address] 26 Mar, 2017 [facility] [address] [address] 17 Mar, 2017 Sore throat J02.9 and Acute nasopharyngitis (common cold) J00 [place] [address] [address] 06 Mar, 2017 Encounter for Depo-Provera c ontraception Z30.42 [place] [address] [address] 15 Feb, 2017 Well child check Z00.129 ; D ietary counseling Z71.3 ; Exercise counseling Z71.89 and Encounter for surveillance of injectable contraceptive Z30.42 [place] [address] [address] 15 Dec, 2016 Encounter for Depo-Provera c ontraception Z30.42 [facility] [address] [place] [id number] [place] [address] 18 Oct, 2016 Contusion of right leg, init ial encounter S80.11XA [place] [address] [address] Sep, Encounter for Depo-Provera c ontraception Z30.42 [place] [address] [address] Jul, Encounter for Depo-Provera c ontraception Z30.42 [place] [address] [address] Apr, Encounter for Depo-Provera c ontraception Z30.42 [place] [address] [address] Feb, Hyperinsulinemia E16.1 and O besity (BMI 30-39.9) E66.9 [place] [address] [address] Feb, Encounter for Depo-Provera c ontraception Z30.42 [place] [address] [address] Jan, [facility] [address] [address] Dec, Congestion of both ears H93. 8X3 and Otalgia of right ear H92.01 [place] [address] [address] Dec, [place] [address] [address] November, Routine health maintenance Z 00.00 ; Obesity (BMI 30-39.9) E66.9 ; Family history of diabetes mellitus Z83.3 and Oral contraceptive pill surveillance Z30.41 [place] [address] [address] November, Routine health maintenance Z 00.00 ; Encounter for Depo-Provera contraception Z30.42 ; Obesity (BMI 30-39.9) E66.9 ; Family history of diabetes mellitus Z83.3 and Encounter for immunization Z23 [facility] [address] [id number] [address] [place] [address] November, Abscess L02.91 [facility] [address] [id number] [address] [place] [phone] 20 Oct, 2015 Encounter for PPD test Z11.1 [facility] [address] [id number] [address] [place] [phone] 11 Oct, 2015 Pharyngitis J02.9 and Strep pharyngitis J02.0 [facility] [address] [id number] [address] [place] [phone] 14 Oct, 2014 [facility] [address] [id number] [address] [place] [phone] Oct, [facility] [address] [id number] [address] [place] [phone] Sep, [facility] [address] [id number] [address] [place] [phone] Sep, [facility] [address] [id number] [address] [place] [phone] Sep, [facility] [address] [id number] [address] [place] [phone] Sep, [facility] [address] [id number] [address] [place] [phone] Aug, [facility] [address] [id number] [address] [place] [phone] Aug, [facility] [address] [id number] [address] [place] [phone] Apr, [facility] [address] [id number] [address] [place] [phone] Apr, [facility] [address] [id number] [address] [place] [address] Mar, [facility] [address] [id number] [address] [place] [phone] Mar, [facility] [address] [id number] [address] [place] [phone] Mar, [facility] [address] [id number] [address] [place] [phone] Mar, [facility] [address] [id number] [address] [place] [phone] Jan, [facility] [address] [id number] [address] [place] [phone] Jan, [facility] [address] [id number] [address] [place] [phone] Jan, [facility] [address] [id number] [address] [place] [phone] Jan, [facility] [address] [id number] [address] [place] [phone] Sep, [facility] [address] [id number] [address] [place] [address] Sep, IMMUNIZATIONS No Known Immunizations SOCIAL HISTORY Never Assessed [place]ASON FOR V[place]IT [place] [place] VITAL SIGNS MEDICATIONS Medication Instructions Dosage Frequency Start Date End Date Duration S jesús Wellbutrin SR 150 mg 1 Tablet 2 times per day Sep, 15 Active RESULTS No Results PROCEDURES No Known procedures [...]
--- OUTSIDE RECORDS SUMMARY | 2020-01-22 00:34 | XMS REPORT | Continuity of Care Document ---
Author Organization Unknown Address Unknown Phone Unavailable Allergies Active Description Code Type Severity Reaction Onset Reported/Identified Relationship to Patient Clinical Status Yes No Known Drug Allergies [id number] Drug Allergy Unknown N/A 01/20/2014 Medications There is no data. Problems Date Dx Coded Attending Type Code Diagnosis Diagnosed By 10/11/2013 BRIE NEWMAN PSYD V72.2 DENTAL EXAMINATION 10/11/2013 LEESA CAMARENA APRN V7 2.2 DENTAL EXAMINATION 01/20/2014 Ot 686.9 01/20/2014 Ot 706.1 02/01/2014 Ot 733.6 02/01/2014 Ot 786.50 02/03/2014 BRIE NEWMAN PSYD 311 DEPRESSIVE DISORDER NOS 02/03/2014 LEESA CAMARENA APRN 31 1 DEPRESSIVE DISORDER NOS 02/03/2014 LEESA CAMARENA APRN 31 1 DEPRESSIVE DISORDER NOS 04/23/2014 LEESA CAMARENA APRN V6 5.5 WORRIED WELL 04/23/2014 LEESA CAMARENA APRN V6 5.5 WORRIED WELL 08/27/2014 LEESA CAMARENA APRN 079.99 VIRAL SYNDROME 08/27/2014 LEESA CAMARENA APRN 079.99 VIRAL SYNDROME 10/10/2014 LEESA CAMARENA APRN 296.90 MOOD DISORDER 10/10/2014 LEESA CAMARENA APRN 296.90 MOOD DISORDER Procedures Code Description [place] [address] PSYC H DIAGNOSTIC EVALUATION 02/04/2014 84439 PSYT X PT&/FAMILY 45 MINUTES 02/05/2014 Results Test Result Range LIPID PANEL - 01/30/15 15:54 CHOLESTEROL/HDL RATIO 4.4 < 5.0 LDL CHOLESTEROL 124 mg/dL < 100 VLDL CHOLESTEROL 20 mg/dL < 30 TRIGLYCERIDES 102 mg/dL < 150 CHOLESTEROL 186 mg/dL < 200 HDL CHOLESTEROL 42 mg/dL > 39 Microbiology HEMOGLOBIN A1C - 01/30/15 15:54 HEMOGLOBIN A1C 5.9 % < 5.7 Microbiology RAPID PLASMA REAGIN - 01/30/15 15:54 RAPID PLASMA REAGIN NONREACTIVE NONREAC TIVE Microbiology HIV - 01/30/15 15:54 AB HIV 1 2 NEGATIVE NEGATIVE HIV 1 P24 AG NEGATIVE NEGATIVE Genital Culture, Routine - 02/28/17 16:4 1 Genital Culture, Routine Note GC/CHLAMYDIA (SWAB OR URINE)-RAPID - 08/03 11:05 CHLAMYDIA TRACHOMATIS RNA, TMA NOT DETECTED NOT DETECTED NEISSERIA GONORRHOEAE RNA, TMA NOT DETECTED NOT DETECTED COMMENT NRG CULTURE, GENITAL - 12/15/17 11:05 CULTURE, GENITAL SEE NOTE NRG TEST, SERUM (QUAL) - 01/10/19 15:00 HCG, TOTAL, QL NEGATIVE See Note: CULTURE, ANAEROBIC AND AEROBIC - 9 15:46 CULTURE, ANAEROBIC BACTERIA W/GRAM STAIN SEE NOTE NRG CULTURE, AEROBIC BACTERIA SEE NOTE NRG RUBELLA IMMUNE STATUS - 11/25/19 15:51 RUBELLA ANTIBODY (IGG) 7.66 index NRG SUREPATH PAP RFX HPV mRNA E6/E7 - 15:51 CLINICAL INFORMATION: NRG LMP: NRG PREV. PAP: NRG PREV. BX: CX NRG SOURCE: Cervix NRG STATEMENT OF ADEQUACY: NRG INTERPRETATION/RESULT: NRG WOOD AND HARDWARE OUTFITTER: NRG INFECTION: NRG PATHOLOGIST: NRG COMMENT NRG Encounters ACCT No. Visit Date/Time Discharge Status Pt. Type Provider Facility Loc./Unit Complaint [id number] 11/10/2014 10:27:00 11/10/2014 23:59: 59 CLS Outpatient LEESA CAMARENA APRN [id number] 10/10/2014 15:56:00 10/10/2014 23:59: 59 CLS Outpatient LEESA CAMARENA APRN [id number] 02/04/2014 07:49:00 02/04/2014 23:59: 59 CLS Outpatient BRIE NEWMAN PSYD [id number] 03/03/2017 10:10:00 Document Registration [id number] 01/30/2015 15:54:00 Document Registration [id number] 01/20/2020 14:15:00 ACT Outpatient SATINDER OHARA [facility] [id number] 11/25/2019 15:00:00 Document Registration [id number] 03/19/2019 13:45:00 Document Registration [id number] 01/10/2019 14:40:00 Document Registration [id number] 12/15/2017 09:40:00 Document Registration [id number] 02/01/2014 21:39:00 014 22:16:00 DIS Emergency [id number] 01/20/2014 21:25:00 014 21:50:00 DIS Emergency [id number] 09/01/2014 23:49:00 Document Registration
--- OUTSIDE RECORDS SUMMARY | 2020-01-22 00:34 | XMS REPORT ---
Author Author Dick MAYFIELD [facility] IN [facility] Address [address] [place] [address] Care Team Providers Care Social Service Manager Name Role Phone MAYFIELDSAMNANCY Unavailable PROBLEMS Type Condition ICD9-CM Code UEH19-[place] Code Onset Dates Condition S tatus SNOMED Code Problem Dysuria R30.0 Active 91275189 Problem Screen for STD (sexually transmitted disease) Z11. 3 Active 765928427 Problem Obesity (BMI 30-39.9) E66.9 Active 646354781 Problem Family history of diabetes mellitus Z83.3 Active 425676796 Problem Yeast vaginitis B37.3 Active 7293 4000 Problem Hyperinsulinemia E16.1 Active 834 70775 ALLERGIES Substance Reaction Event Type Date Status Bee Pollen hives Drug Allergy Jul, Active ENCOUNTERS Encounter Location Date Diagnosis [facility] IN [facility] [address] [facility] [id number] [address] [place] [phone] Dec, Sore throat J02.9 and Viral pharyngitis J02.9 [facility] [address] [facility] [id number] [address] [place] [phone] Dec, Screen for STD (sexually tra nsmitted disease) Z11.3 ; Dysuria R30.0 and Yeast vaginitis B37.3 [facility] [address] [facility] [id number] [address] [place] [phone] November, Encounter for Depo-Provera c ontraception Z30.42 [facility] [address] [facility] [id number] [address] [place] [phone] Sep, Encounter for Depo-Provera c ontraception Z30.42 [facility] IN [facility] [address] [facility] [id number] [address] [place] [phone] Sep, Flu-like symptoms R68.89 [facility] [address] [facility] [id number] [address] [place] [phone] Jul, Viral gastroenteritis A08.4 [facility] [address] [facility] [id number] [address] [place] [phone] 08 Jun, 2017 Sore throat J02.9 and Acute nasopharyngitis J00 [place] [address] [place] [id number] [place] [phone] 07 Jun, 2017 Encounter for Depo-Provera c ontraception Z30.42 [place] [address] [place] [id number] [address] [place] [phone] 27 Mar, 2017 [place] [address] [place] [id number] [place] [phone] 26 Mar, 2017 [facility] [address] [place] [id number] [place] [phone] 17 Mar, 2017 Sore throat J02.9 and Acute nasopharyngitis (common cold) J00 [place] [id number] [place] [phone] 06 Mar, 2017 Encounter for Depo-Provera c ontraception Z30.42 [place] [address] [place] [id number] [place] [phone] 15 Feb, 2017 Well child check Z00.129 ; D ietary counseling Z71.3 ; Exercise counseling Z71.89 and Encounter for surveillance of injectable contraceptive Z30.42 [place] [address] [place] [id number] [address] [place] [phone] 15 Dec, 2016 Encounter for Depo-Provera c ontraception Z30.42 [facility] IN [facility] [address] [place] [id number] [address] [place] [phone] Oct, Contusion of right leg, init ial encounter S80.11XA [place] [address] [place] [id number] [address] [place] [phone] Sep, Encounter for Depo-Provera c ontraception Z30.42 [place] [address] [place] [id number] [address] [place] [phone] Jul, Encounter for Depo-Provera c ontraception Z30.42 [place] [address] [place] [id number] [address] [place] [phone] Apr, Encounter for Depo-Provera c ontraception Z30.42 [place] [address] [phone] Feb, Hyperinsulinemia E16.1 and O besity (BMI 30-39.9) E66.9 [place] [address] [phone] Feb, Encounter for Depo-Provera c ontraception Z30.42 [place] [address] [phone] Jan, [facility] [address] [phone] Dec, Congestion of both ears H93. 8X3 and Otalgia of right ear H92.01 [place] [address] [place] [id number] [address] [place] [phone] Dec, [place] [address] [place] [id number] [address] [place] [address] November, Routine health maintenance Z 00.00 ; Obesity (BMI 30-39.9) E66.9 ; Family history of diabetes mellitus Z83.3 and Oral contraceptive pill surveillance Z30.41 [place] [address] [place] [id number] [address] [place] [address] November, Routine health maintenance Z 00.00 ; Encounter for Depo-Provera contraception Z30.42 ; Obesity (BMI 30-39.9) E66.9 ; Family history of diabetes mellitus Z83.3 and Encounter for immunization Z23 [facility] [address] [place] [id number] [address] [place] [phone] November, Abscess L02.91 [facility] [address] [id number] [address] [place] [phone] 20 Oct, 2015 Encounter for PPD test Z11.1 [facility] [address] [id number] [address] [place] [phone] 11 Oct, 2015 Pharyngitis J02.9 and Strep pharyngitis J02.0 [facility] [address] [id number] [address] [place] [phone] 14 Oct, 2014 [facility] [address] [id number] [address] [place] [phone] Oct, [facility] [address] [id number] [address] [place] [phone] Sep, [facility] [address] [id number] [address] [place] [phone] Sep, [facility] [address] [id number] [address] [place] [phone] Sep, [facility] [address] [id number] [address] [place] [phone] Sep, [facility] [address] [id number] [address] [place] [phone] Aug, [facility] [address] [id number] [address] [place] [phone] Aug, [facility] [address] [id number] [address] [place] [phone] Apr, [facility] [address] [id number] [address] [place] [phone] Apr, [facility] [address] [id number] [address] [place] [phone] Mar, [facility] [address] [id number] [address] [place] [phone] Mar, [facility] [address] [id number] [address] [place] [phone] Mar, [facility] [address] [id number] [address] [place] [phone] Mar, [facility] [address] [id number] [address] [place] [phone] Jan, [facility] [address] [id number] [address] [place] [phone] Jan, [facility] [address] [id number] [address] [place] [phone] Jan, [facility] [address] [id number] [address] [place] [phone] Jan, [facility] [address] [id number] [address] [place] [phone] Sep, [facility] [address] [id number] [address] [place] [phone] Sep, IMMUNIZATIONS No Known Immunizations SOCIAL HISTORY Never Assessed REASON FOR VISIT Diarrhea Pt reports diarrhea for a week, does have body aches and has been expo sed to influenza A ROLLY Alex PLAN OF CARE Activity Details Follow Up prn Reason: VITAL SIGNS Weight 218.4 lbs 2017-08-04 Temperature 97.6 degrees Fahrenheit 2017-08-04 Heart Rate 80 bpm 2017-08-04 Respiratory Rate 20 2017-08-04 Blood pressure systolic 122 mmHg 2017-08-04 Blood pressure diastolic 74 mmHg 2017-08-04 MEDICATIONS Medication Instructions Dosage Frequency Start Date End Date Duration S tatus Flagyl 500 mg Orally 2 times a day 1 tablet 12h 26 Mar, 2017 07 days Not-Taking MetFORMIN HCl ER 500 MG Orally twice a day APPT NEEDED FOR R EFILL 1 tablet with a meal Dec, 60 days Not-Taking Ibuprofen 200 MG Orally every 6 hrs 3 tablet as needed 6h Not-Taking Sudafed 30 MG Orally every 6 hrs prn congestion 1 tablet as needed Dec, Not-Taking Depo-Provera 150 MG/ML 1 ml Feb, Not-Taking Trazodone HCl 50 MG Orally Once a day 1 tablet at bedtime as needed 24h Not-Taking RESULTS No Results PROCEDURES No Known procedures [...]
--- OUTSIDE RECORDS SUMMARY | 2020-01-22 00:34 | XMS REPORT ---
Author Dick Sauceda Organization [employer] Address Unknown Phone Unavailable Care Team Providers Care Laborer Operator Name Role Phone EYAL MARES CP Unavailable Allergies, Adverse Reactions, Alerts Substance Reaction Event Type Bee Pollen hives Drug Allergy Problems Problem Type Condition Code Onset Dates Condition Statu s Assessment Hyperinsulinemia E16.1 Active Assessment Obesity (BMI 30-39.9) E66.9 Active Problem Routine health maintenance Z00.00 A ctive Problem Obesity (BMI 30-39.9) E66.9 Active Problem Hyperinsulinemia E16.1 Active Problem Encounter for Depo-Provera contraception Z30.42 Active Problem Encounter for immunization Z23 A ctive Problem Family history of diabetes mellitus Z83.3 Active Problem Oral contraceptive pill surveillance Z30.41 Active Medications Medication Code System Code Instructions Start Date End Date Status Dosage Ibuprofen [facility] [address]-39 200 MG Orally every 6 hrs 3 tablet as needed Depo-Provera [facility] [address]-35 150 MG/ML Intramuscular 1 ml MetFORMIN HCl ER [facility] [address]-19 500 MG Orally t wice a day APPT NEEDED FOR REFILL December 21, 2015 1 tablet with a meal Procedures Procedure Coding System Code Date Office Visit, Est Pt., Level 3 CPT-4 06025 A 2015 Vital Signs Date/Time: Mar 01, 2016 Cardiac Monitoring Heart Rate 82 bpm Weight 195.1 lbs Height 62.5 in Ht Percentile 27.1 % BMI 35.11 Index Blood Pressure Diastolic 74 mmHg Blood Pressure Systolic 118 mmHg BMIPercentile 98.37 % Wt Percentile 97.67 % Results No Known Results Summary Purpose [employer] Submission
[2020-01-22] MEDS: ACETAMINOPHEN 500 MG TAB (TYLENOL) PO ONE ×2 (00:42→00:55)
[2020-01-22 01:06] LABS: BASOPHILS % (AUTO) 0 % (0-10); EOSINOPHILS % (AUTO) 0 % (0-10); HEMATOCRIT 32 % (35-52); HEMOGLOBIN 11.4 G/DL (11.5-16.0); LYMPHOCYTES # (AUTO) 1.2 X 10^3 (1.0-4.0); LYMPHOCYTES % (AUTO) 12 % (12-44); MEAN CORPUSCULAR HEMOGLOBIN 29 PG (25-34); MEAN CORPUSCULAR HGB CONC 36 G/DL (32-36); MEAN CORPUSCULAR VOLUME 81 FL (80-99); MEAN PLATELET VOLUME 11.6 FL (7.4-10.4); MONOCYTES # (AUTO) 0.9 X 10^3 (0.0-1.0); MONOCYTES % (AUTO) 9 % (0-12); NEUTROPHILS # (AUTO) 7.9 X 10^3 (1.8-7.8); NEUTROPHILS % (AUTO) 79 % (42-75); PLATELET COUNT 216 10^3/uL (130-400); RED CELL DISTRIBUTION WIDTH 15.3 % (10.0-14.5); WHITE BLOOD COUNT 9.9 10^3/uL (4.3-11.0)
[2020-01-22 01:07] LABS: ALBUMIN 3.4 GM/DL (3.2-4.5); CHLORIDE 103 MMOL/L (98-107); SODIUM 133 MMOL/L (135-145)
[2020-01-22 01:08] LABS: CALCIUM 8.9 MG/DL (8.5-10.1); INR 0.9 (0.8-1.4); PROTHROMBIN TIME PATIENT 12.5 SEC (12.2-14.7)
[2020-01-22 01:10] LABS: GLUCOSE 117 MG/DL (70-105); TOTAL PROTEIN 6.8 GM/DL (6.4-8.2)
[2020-01-22 01:11] LABS: BILIRUBIN,TOTAL 0.3 MG/DL (0.1-1.0); CARBON DIOXIDE 17 MMOL/L (21-32)
[2020-01-22 01:13] LABS: ALKALINE PHOSPHATASE 68 U/L (40-136); GFR ESTIMATED > 60
[2020-01-22 01:14] LABS: BUN/CREATININE RATIO 7
[2020-01-22 01:16] LABS: ALANINE AMINOTRANSFERASE 32 U/L (0-55)
[2020-01-22 01:51] LABS: AMPHETAMINE SCREEN, URINE NEGATIVE (NEGATIVE); BARBITURATE SCREEN URINE NEGATIVE (NEGATIVE); BENZODIAZEPINES SCREEN URINE NEGATIVE (NEGATIVE); CANNABINOID SCREEN, URINE POSITIVE (NEGATIVE); COCAINE SCREEN URINE NEGATIVE (NEGATIVE); METHADONE STAT NEGATIVE (NEGATIVE); METHAMPHETAMINE SCREEN URINE S NEGATIVE (NEGATIVE); OPIATE SCREEN URINE POSITIVE (NEGATIVE); OXYCODONE STAT NEGATIVE (NEGATIVE); PROPOXYPHENE STAT NEGATIVE (NEGATIVE); TRICYCLIC ANTIDEPRESSANTS SCRE NEGATIVE (NEGATIVE)
[2020-01-22 01:59] LABS: AMORPHOUS SEDIMENT,UR FEW AMOR URATES /LPF; BACTERIA,URINE TRACE /HPF; BILIRUBIN,URINE NEGATIVE (NEGATIVE); CLARITY,URINE SL CLOUDY; COLOR,URINE ORANGE; GLUCOSE, URINE (UA) NEGATIVE (NEGATIVE); KETONES,URINE NEGATIVE (NEGATIVE); LEUKOCYTE ESTERASE ,URINE TRACE (NEGATIVE); NITRITE,URINE NEGATIVE (NEGATIVE); PH,URINE 6.5 (5-9); PROTEIN,URINE TRACE (NEGATIVE); YEAST,URINE FEW /HPF
[2020-01-22 02:00] LABS: URINE OTHER FEW SPERM /HPF
[2020-01-22] MEDS ORDERED: CEPH-507 PO (02:12)
[2020-01-22 02:15] VITALS: BP 113/70
== END 2020-01-22 02:20 | disposition home or self-care (01) ==
LOC: EDUNIT# 00:09 → ER 00:13
DX: O23.41 Unspecified infection of urinary tract in pregnancy, first trimester (principal); Z3A.13 13 weeks gestation of pregnancy
CPT/HCPCS: 36415; 80053; 80306; 81000; 83605; 85025; 85610; 85730; 87040

== ENCOUNTER 2020-06-17 23:58 | Outpatient (CLI) | payer MEDICAID ==
[~2020-06-17] VITALS: Ht 160 cm; Wt 110.9 kg
[~2020-06-17 23:58] MED LIST changes: +CEPH-507 PO
--- NOTE | 2020-06-18 00:05 | NUR ---
PASHA SANTOS presented to unit via ambulation from ED, accompanied by SO, with c/o leaking,DISCHARGE,PRESSURE. PASHA SANTOS weighed, gowned, voided, and to bed. EFHM and TOCO applied, VS taken. PASHA SANTOS oriented to bed controls, call light, TV, heat, and A/C controls.
[2020-06-18 00:15] VITALS: BP 139/81
--- NOTE | 2020-06-18 00:22 | NUR ---
Dr. Guevara called with report of pt 36/ that came in because she thought she was leaking fluid, starting on 06/16. Informed that pt. was swabbed twice and asked to bear down and cough both times. Informed that both swabs came back negative. Informed that pt. is not fatimah and that strip is reactive. Informed that pt. vitals are WNL's. orders that pt. can be discharged at this time and to keep her appointment in the office tomorrow.
[2020-06-18] MEDS ORDERED: VALA500T7 PO (00:32)
--- NOTE | 2020-06-18 00:40 | NUR ---
D/C instructions given & explained, pt. verbalized understanding & signed, copy of D/C instructions to pt. Pt. left [facility] ambulatory escorted by SO, to home via private vehicle.
--- NOTE | 2020-06-18 08:37 | Physician Query-Final Dx ---
AIMEE HYATT 06/18/20 0837: Clinic Account Progress/Dx Physician Query: Please give diagnosis Please include # weeks gestation Date of Service Jun 17, 2020 at 23:58 MONIKA DE LEON MD 06/20/20 0735: Clinic Account Progress/Dx DIAGNOSIS: Diagnosis 1. IUP in 3rd trimester, non-labor 2. Membranes intact AIMEE HYATT Jun 18, 2020 08:37 MONIKA DE LEON MD Jun 20, 2020 07:35
== END 2020-06-18 00:44 | disposition home or self-care (01) ==
LOC: WSo 23:58 → LDRP 23:58 → WSo 06-18 00:44
PROVIDERS: ATTEND Family Medicine
DX: O41.8X30 Other specified disorders of amniotic fluid and membranes, third trimester, not applicable or unspecified (principal); Z3A.00 Weeks of gestation of pregnancy not specified
CPT/HCPCS: 99213

== ENCOUNTER 2020-06-20 00:18 | Outpatient (CLI) | payer MEDICAID ==
[~2020-06-20] VITALS: Ht 63 cm; Wt 111.4 kg
[~2020-06-20 00:18] MED LIST changes: +VALA500T7 PO
--- NOTE | 2020-06-20 00:24 | NUR ---
PASHA SANTOS presented to unit via ac from ED, accompanied by friend, with c/o CRAMPS,BACK PAIN,FLUID LEAKAGE. PASHA SANTOS weighed, gowned, voided, and to bed. EFHM and TOCO applied, VS taken. PASHA SANTOS oriented to bed controls, call light, TV, heat, and A/C controls.
[2020-06-20 01:06] VITALS: BP 113/67
--- NOTE | 2020-06-20 01:20 | NUR ---
Called dr kaufman with pt report. Discussed strip, pain level, pattern, amniotest, urine, and sve. Orders given to dc to home.
[2020-06-20] MEDS ORDERED: PREN1TAB79 PO (01:26)
--- NOTE | 2020-06-20 01:40 | NUR ---
Pt discharged to home per drs orders. papers signed and given to pt. questions answered. no s/s distress noted.
--- NOTE | 2020-06-22 09:32 | Physician Query-Final Dx ---
AIMEE HYATT 06/22/2032: Clinic Account Progress/Dx Physician Query: Please give diagnosis Please include # weeks gestation Date of Service Jun 20, 2020 at 00:18 MONIKA DE LEON MD 06/24/202053: Clinic Account Progress/Dx DIAGNOSIS: Diagnosis 1. IUP at 37 weeks, non labor 2. Uterine irritability 3. membranes intact AIMEE HYATT Jun 22, 2020 09:32 MONIKA DE LEON MD Jun 24, 2020 20:54
== END 2020-06-20 01:40 | disposition home or self-care (01) ==
LOC: WSo 00:18 → LDRP 00:19 → WSo 01:40
PROVIDERS: ATTEND Family Medicine
DX: O99.891 Other specified diseases and conditions complicating pregnancy (principal); N85.8 Other specified noninflammatory disorders of uterus; Z3A.37 37 weeks gestation of pregnancy
CPT/HCPCS: 99214

== ENCOUNTER 2020-06-23 13:17 | Outpatient (CLI) | payer MEDICAID ==
[~2020-06-23] VITALS: Ht 157.5 cm; Wt 108.8 kg
[~2020-06-23 13:17] MED LIST changes: +PREN1TAB79 PO
--- NOTE | 2020-06-23 13:25 | NUR ---
PASHA SANTOS presented to unit via amb from home, accompanied by s.o.'s mother , with c/o ABD/pelvic pain and PRESSURE. PASHA SANTOS weighed, gowned, voided, and to bed. EFHM and TOCO applied, VS taken. PASHA SANTOS oriented to bed controls, call light, TV, heat, and A/C controls.
[2020-06-23 13:48] VITALS: BP 120/77
--- NOTE | 2020-06-23 13:59 | NUR ---
AMNIO SWAB NEGATIVE. PT WARNING THIS RN THAT SHE MAY PULL ON HER DURING EXAM. ENCOURAGED PT TO BREATH AND TRY TO RELAX. 1400 SVE BY JOSÉ REYNOLDS. CERVIX A DENT/THICK/-3 AND SLIGHTLY POSTERIOR. APPEARS VERTEX BUT UNABLE TO CONFIRM.
[2020-06-23 14:17] VITALS: BP 120/77
[2020-06-23 14:25] VITALS: BP 120/77
--- NOTE | 2020-06-23 14:30 | NUR ---
REACTIVE NST. LOTS OF FM WITH + ACCELERATIONS. NO CTXS NOTED. ABDOMEN PALPATES SOFT ALTHOUGH PT C/O SEVERE PAIN. PT ON PHONE. S.O'S MOTHER AT BEDSIDE.
--- NOTE | 2020-06-23 14:48 | NUR ---
DR. VILLARREAL NOTIFIED VAI PHONE OF PT'S ARRIVAL, COMPLAINT, REACTIVE NST, NO CONTRACTIONS, AND CERVICAL EXAM. INFORMED OF UA STILL PENDING BECAUSE HAVING TO DO A MANUAL TEST IN LAB.
[2020-06-23 15:01] LABS: CLARITY,URINE VERY CLOUDY; COLOR,URINE YELLOW; GLUCOSE, URINE (UA) NEGATIVE (NEGATIVE); PROTEIN,URINE TRACE (NEGATIVE)
[2020-06-23 15:02] LABS: BACTERIA,URINE LARGE /HPF; BILIRUBIN,URINE NEGATIVE (NEGATIVE); KETONES,URINE NEGATIVE (NEGATIVE); LEUKOCYTE ESTERASE ,URINE 3+ (NEGATIVE); NITRITE,URINE POSITIVE (NEGATIVE); WBC,URINE TNTC /HPF
--- NOTE | 2020-06-23 15:04 | NUR ---
DR. MCBRIDE NOTIFIED OF UA RESULTS. ORDER RECEIVED.
--- NOTE | 2020-06-23 15:05 | NUR ---
EFM OFF. UP TO GET DRESSED.
[2020-06-23] MEDS ORDERED: AMOX500C2 PO (15:12)
--- NOTE | 2020-06-23 15:15 | NUR ---
RX FOR AMOXICILLIN 500 MG P.O. BID X7 DAYS CALLED TO [facility] PER PT'S REQUEST.
[2020-06-23 15:25] VITALS: BP 120/77
--- NOTE | 2020-06-23 15:25 | NUR ---
DISCHARGE INSTRUCTIONS REVIEWED WITH COPY TO PT. STATES UNDERSTANDING OF ALL INSTRUCTIONS AND NEED TO F/U SCHEDULED AND NEEDED. DISMISSED AMB FROM WS IN STABLE CONDITION ACC BY S.O.'S MOTHER.
--- NOTE | 2020-06-24 08:02 | Physician Query-Final Dx ---
AIMEE HYATT 06/24/20 0802: Clinic Account Progress/Dx Physician Query: Please give diagnosis Please include # weeks gestation Date of Service Jun 23, 2020 at 13:17 FREDA VILLARREAL MD 06/24/20 2121: Clinic Account Progress/Dx DIAGNOSIS: Diagnosis Abdominal pain in 36 weeks gestation Urinary Tract Infection AIMEE HYATT Jun 24, 2020 08:02 FREDA VILLARREAL MD Jun 24, 2020 21:21
== END 2020-06-23 15:25 | disposition home or self-care (01) ==
LOC: LDRP 13:17 → WSo 13:17
PROVIDERS: ATTEND Family Medicine
DX: O26.899 Other specified pregnancy related conditions, unspecified trimester (principal); Z3A.36 36 weeks gestation of pregnancy
CPT/HCPCS: 81000; 87077; 87088; 87186; 99214

== ENCOUNTER 2020-06-25 17:26 | Outpatient (CLI) | payer MEDICAID ==
[~2020-06-25] VITALS: Ht 160 cm; Wt 108.7 kg
[~2020-06-25 17:26] MED LIST changes: +AMOX500C2 PO
--- NOTE | 2020-06-25 17:33 | NUR ---
PASHA SANTOS presented to unit via w/c from ED, accompanied by Jarrett Trivedi and family member, with c/o CONTRACTIONS. Pt. weighed, gowned, voided, and to bed. EFHM and TOCO applied, VS taken. Pt. oriented to bed controls, call light, TV, heat, and A/C controls.
--- NOTE | 2020-06-25 17:55 | NUR ---
reports nausea & vomiting today and yesterday. emesis x1 today, x5 yesterday. denies vaginal bleeding or leaking fluid. +FM. dx with "severe UTI" x2 nocs ago. saw Dr. Zhou in office, received IFV's and Rocephin IV. c/o back pain. breathing with ctx's.
[2020-06-25 18:00] VITALS: BP 114/56
--- NOTE | 2020-06-25 18:00 | NUR ---
SVE 2cm, 100%, bag of fluid noted with exam. unable to determine station r/t bag of fluid
--- NOTE | 2020-06-25 18:03 | NUR ---
was called with monitor tracing and SVE. new orders received- will hand off pt to Dr. Pisano.
[2020-06-25] MEDS ORDERED: morphine INJ 10 MG/ML 1ML (SYR OR VIAL) IVP STA (18:12)
[2020-06-25] MEDS ORDERED: ONDANSETRON 4 MG/2 ML (SDV) Z0FRAN ONE (18:14)
--- NOTE | 2020-06-25 18:14 | NUR ---
here on [facility] unit. new orders received for IV Morphine.
[2020-06-25] MEDS ORDERED: LACTATED RINGERS 1,000 ML IV SCH (18:15)
[2020-06-25] MEDS ORDERED: ONDANSETRON 4 MG/2 ML (SDV) Z0FRAN IVP PRN (18:15)
[2020-06-25] MEDS ORDERED: hydrOXYzine (VISTARIL/ATARAX) 25 MG capsule/tablet PO ONE (18:15)
[2020-06-25] MEDS ORDERED: hydrOXYzine (VISTARIL/ATARAX) 25 MG capsule/tablet ONE (18:15)
[2020-06-25] MEDS ORDERED: LACTATED RINGERS 1,000 ML IV ONE (18:15)
[2020-06-25] MEDS ORDERED: morphine INJ 4 MG/ML 1 ML (VIAL/SYRINGE) ONE (18:17)
--- NOTE | 2020-06-25 18:27 | NUR ---
#20g IV to Rt.hand x1 attempt by this RN. site patent, secured with [employer]. LR @ 999cc/hr infusing via IV pump. ordered medications given- see eMar for further.
--- NOTE | 2020-06-25 18:58 | NUR ---
IV rate decreased to 125cc/hr
--- NOTE | 2020-06-25 19:35 | NUR ---
RN into room, plan of care discussed. Pt states that she feels like contractions have spaced out but are stronger, Pt laid back, during process of lowering bed, pt screaming out in discomfort, when rn asked what was wrong, pt states her back just hurts from moving the bed. SVE performed. no cervical change noted. Pt continues to moan loudly, abdomen palpated and not firm. Pt denies feeling contractions at this time.
--- NOTE | 2020-06-25 20:00 | NUR ---
notified of pt's exam and complaint, tracing reviewed with Discharge orders received.
--- NOTE | 2020-06-25 20:05 | NUR ---
Plan of care discussed with pt. Pt verbalized understanding. Pt dc'd from the monitor.
--- NOTE | 2020-06-25 20:30 | NUR ---
Discharge instruction verbalized with pt. Labor precautions given. 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 iv dc'd. Per pt's request, repeat sve performed. no cervical change noted.
--- NOTE | 2020-06-25 20:35 | NUR ---
pt discharged from unit via w'c to pvt car. No distress noted.
[2020-06-25 21:43] VITALS: BP 140/82
--- NOTE | 2020-06-26 07:57 | Physician Query-Final Dx ---
AIMEE HYATT 06/26/20 0757: Clinic Account Progress/Dx Physician Query: Please give diagnosis Please include # weeks gestation Date of Service Jun 25, 2020 at 17:26 FREDA VILLARREAL MD 06/28/20 0855: Clinic Account Progress/Dx DIAGNOSIS: Diagnosis Contractions without active labor 36 weeks gestation AIMEE HYATT Jun 26, 2020 07:57 FREDA VILLARREAL MD Jun 28, 2020 08:55
== END 2020-06-25 20:35 | disposition home or self-care (01) ==
LOC: WSo 17:26 → LDRP 18:30 → WSo 20:35
PROVIDERS: ATTEND Family Medicine
DX: O62.9 Abnormality of forces of labor, unspecified (principal); Z3A.36 36 weeks gestation of pregnancy
CPT/HCPCS: 96361; 96374; 96375; 99214

== ENCOUNTER 2020-06-29 04:26 | Inpatient (IN) | payer MEDICAID ==
[2020-06-29] VITALS (24 sets, daily range): BP systolic 117–148; BP diastolic 59–93
[~2020-06-29] VITALS: Ht 160 cm; Wt 107.0 kg
--- NOTE | 2020-06-29 04:26 | NUR ---
PASHA SANTOS presented to unit via from ED, accompanied by mother, with c/o CONTARCTIONS/WATER BROKE. PASHA SANTOS weighed, gowned, voided, and to bed. EFHM and TOCO applied, VS taken. PASHA SANTOS oriented to bed controls, call light, TV, heat, and A/C controls.
[2020-06-29] MEDS ORDERED: NS IV 1000 ML 1,000 ML ONE (05:04)
[2020-06-29] MEDS ORDERED: MINERAL OIL CONCENTRATE 99.9% 15 ML UDC TOP PRN (05:15)
[2020-06-29] MEDS ORDERED: NS IV 1000 ML 1,000 ML IV SCH (05:15)
[2020-06-29 05:24] LABS: BASOPHILS % (AUTO) 0 % (0-10); EOSINOPHILS # (AUTO) 0.1 10^3/uL (0.0-0.3); EOSINOPHILS % (AUTO) 1 % (0-10); HEMATOCRIT 31 % (35-52); HEMOGLOBIN 10.3 g/dL (11.5-16.0); LYMPHOCYTES # (AUTO) 1.9 10^3/uL (1.0-4.0); LYMPHOCYTES % (AUTO) 24 % (12-44); MEAN CORPUSCULAR HEMOGLOBIN 27 pg (25-34); MEAN CORPUSCULAR HGB CONC 33 g/dL (32-36); MEAN CORPUSCULAR VOLUME 81 fL (80-99); MEAN PLATELET VOLUME 10.6 fL (9.0-12.2); MONOCYTES # (AUTO) 0.5 10^3/uL (0.0-1.0); MONOCYTES % (AUTO) 6 % (0-12); NEUTROPHILS # (AUTO) 5.5 10^3/uL (1.8-7.8); NEUTROPHILS % (AUTO) 68 % (42-75); PLATELET COUNT 415 10^3/uL (130-400)
[2020-06-29] MEDS: CATHETER FLUSH 10 ML SYR IV SCH ×2 (06:00→14:00)
[2020-06-29] MEDS ORDERED: LIDOCAINE/EPI 2% 1:200,00 (XYLOCAINE) 10 ML VIAL ONE (06:43)
[2020-06-29] MEDS ORDERED: OXYTOCIN PRE-MIX DRIP 500 ML IV ONE (06:43)
[2020-06-29] MEDS: OXYTOCIN PRE-MIX DRIP 500 ML IV SCH ×2 (07:04→09:12)
[2020-06-29] MEDS ORDERED: KETOROLAC 30 MG/ML VIAL ONE (07:19)
--- NOTE | 2020-06-29 07:26 | History & Physical-OB ---
OB - Chief Complaint & HPI Date/Time Date of Admission: Date of Admission: Jun 29, 2020 at 05:12 Date seen by a Provider: Jun 29, 2020 Time Seen by a Provider: 06:20 Chief Complaint/History OB-Reason for Admission/Chief: Rupture of Membranes Hx : 1 Hx Para: 0 Expected Date of Delivery: Jul 17, 2020 Gestational Age in Weeks: 37 Gestational Age in Days: 2 Other reason for admission: SROM at home @ 4 AM and started having regular contractions. History of Labs A+, Ab neg, Rub Imm, HIV/HepB/C/RPR NR, Chyl + during that was treated. Allergies and Home Medications Allergies Coded Allergies: No Known Drug Allergies (Unverified , 01/20/14) Home Medications Valacyclovir HCl 500 Mg Tablet, 500 MG PO DAILY, (Reported) Patient Home Medication List Home Medication List Reviewed: Yes OB - History Hx of Present Care: Yes Ultrasounds: Normal mid trimester US Obstetrical Complications: None Medical Complications: None Information Induced Hypertension: No Maternal Gestational Diabetes: No Hemorrhage: No Obstetrical History Hx : 1 Hx Para: 0 Number of Living Children: 0 Delivery History Hx Blood Disorders: No Patient Past Medical History None Social History/Family History HIV/AIDS: No Recent Infectious Disease Expo: No Sexually Transmitted Disease: No Alcohol Use: Denies Use Recreational Drug Use: No 2nd Hand Smoke Exposure: No Immunizations Tetanus Booster (TDap): Less than 5yrs Rubella: immune RPR/VDRL: Negative GBS Status: Negative HBsAG: Negative OB - Admission Exam Physical Exam Vitals: Vital Signs 06/29/20 04:41 Temp 36.2 Pulse 108 Resp 18 Pulse Ox 98 O2 Delivery Room Air HEENT: NCAT Heart: Rhythm Normal Lungs: Clear Abdomen: Gravid Cervical Dilatation: 9cm Effacement: 100% Station: 0 Membranes: Ruptured Amniotic Fluid: Clear Accelerations: Accelerations Present Decelerations: No Decelerations Short Term Variability: Present Contractions on Admission: < 5 Minutes Apart Labs Laboratory Tests Test 06/29/20 04:55 Range/Units White Blood Count 8.0 4.3-11.0 10^3/uL Red Blood Count 3.81 3.80-5.11 10^6/uL Hemoglobin 10.3 L 11.5-16.0 g/dL Hematocrit 31 L 35-52 % Mean Corpuscular Volume 81 80-99 fL Mean Corpuscular Hemoglobin 27 25-34 pg Mean Corpuscular Hemoglobin Concent 33 32-36 g/dL Red Cell Distribution Width 14.7 H 10.0-14.5 % Platelet Count 415 H 130-400 10^3/uL Mean Platelet Volume 10.6 9.0-12.2 fL Immature Granulocyte % (Auto) 0 % Neutrophils (%) (Auto) 68 42-75 % Lymphocytes (%) (Auto) 24 12-44 % Monocytes (%) (Auto) 6 0-12 % Eosinophils (%) (Auto) 1 0-10 % Basophils (%) (Auto) 0 0-10 % Neutrophils # (Auto) 5.5 1.8-7.8 10^3/uL Lymphocytes # (Auto) 1.9 1.0-4.0 10^3/uL Monocytes # (Auto) 0.5 0.0-1.0 10^3/uL Eosinophils # (Auto) 0.1 0.0-0.3 10^3/uL Basophils # (Auto) 0.0 0.0-0.1 10^3/uL Immature Granulocyte # (Auto) 0.0 0.0-0.1 10^3/uL OB - Assessment/Plan/Diagnosis Assessment Assessment: active labor Admission Dx Third Trimester 37 week gestation Admission Status: Inpatient Order (span 2 midnights) Reason for Inpatient Admission: Labor Plan Plan: Expectant Management Other Plan 19 yo @ 37.2 wga here after SROM at home, A+, Ab neg, Rub Imm, HIV/HepB/C/RPR NR, GBS neg. ? h/o HSV Plan - Expectant management - Does not desire epidural - GBS neg - ? HSV on pap, she has not taking antivirals for the last 3 days, No active lesions seen Copy Copies To 1: JERRICA CASANOVA MD, HOLLY R MD Jun 29, 2020 07:26
--- NOTE | 2020-06-29 07:28 | NUR ---
0728 Post vag delivery recovery initiated. 0745 FF@U. mod amount of rubra. no clots expressed. Breast feeding babe. Mom-in-law at bedside. 0800 FF@U. mod amount of rubra. no clots expressed. Ice pack applied to perineum. Call light within reach. 0815 FF@U. mod amount of rubra. no clots expressed. 0830 FF@U. mod amount of rubra. no clots expressed. 0845 FF@U. mod amount of rubra. no clots expressed. Patient eating regular diet. No concerns voiced at this time. Pt denies pain. 0900 FF@U. small amount of rubra. no clots expressed. preparing to move to room 309. Recovery complete.
[2020-06-29] MEDS ORDERED: KETOROLAC 30 MG/ML VIAL IVP ONE (07:30)
--- NOTE | 2020-06-29 07:32 | OB Labor & Delivery Record ---
Vag Delivery Note Vag Delivery Note Date of Delivery: 06/29/20 Preoperative Diagnosis: Dick Cordova is a (19 /Para 1 / 0, Gestational Age (wks)37.3 wga here for active labor Postoperative Diagnosis: Same Surgeon: JERRICA CASANOVA Lidding Machine Operator: None Anesthesia: Natural Delivery Type: @ 0700 Findings: Viable Female , apgars 8/9, weight 6#1 2750 grams Lacerations: None Intact placenta with 3 vessel cord. No nuchal cord, body cord or shoulder dystocia Estimated Blood Loss: 125 ml Complications: None Condition: Stable Description of Procedure: The patient is a 19 year old female who presented in Active Labor following SROM. She was admitted and informed consent was obtained. Her labor course was unremarkable. She progressed to complete dilatation and began to push. She was then set up for delivery. The infant's head was delivered atraumatically in the ABDIRASHID position. The shoulders and remainder of the infant's body were then delivered without difficulty. Upon delivery, the head was held below the level of the perineum and the mouth and nares were bulb suctioned. The cord was doubly clamped and cut after 2 min delay and the was attended to by the pediatric staff on maternal abdomen. An intact placenta with 3-vessel cord delivered via Samm and there was found to be minimal bleeding.~ Vigorous fundal massage was performed and the fundus was found to be firm. IV oxytocin was given. Examination of the vagina and perineum revealed a no lacerations that required repair. Following the repair, sponge, instrument and needle counts were correct. Mom and baby were both in stable condition in the labor suite. Vitals - Labs Vital Signs - I&O Vital Signs Date Time Temp Pulse Resp B/P (MAP) Pulse Ox O2 Delivery O2 Flow Rate FiO2 06/29/20 04:41 36.2 108 18 98 Room Air 06/29/20 04:36 36.2 106 18 98 Room Air Labs Laboratory Tests 06/29/20 04:55: White Blood Count 8.0, Red Blood Count 3.81, Hemoglobin 10.3L, Hematocrit 31L, Mean Corpuscular Volume 81, Mean Corpuscular Hemoglobin 27, Mean Corpuscular Hemoglobin Concent 33, Red Cell Distribution Width 14.7H, Platelet Count 415H, Mean Platelet Volume 10.6, Immature Granulocyte % (Auto) 0, Neutrophils (%) (Auto) 68, Lymphocytes (%) (Auto) 24, Monocytes (%) (Auto) 6, Eosinophils (%) (Auto) 1, Basophils (%) (Auto) 0, Neutrophils # (Auto) 5.5, Lymphocytes # (Auto) 1.9, Monocytes # (Auto) 0.5, Eosinophils # (Auto) 0.1, Basophils # (Auto) 0.0, Immature Granulocyte # (Auto) 0.0 JERRICA CASANOVA MD Jun 29, 2020 07:32
[2020-06-29] MEDS ORDERED: WITCH HAZEL(TUCKS) 40 EA JAR TOP PRN (07:45)
[2020-06-29] MEDS ORDERED: BENZOCAINE/MENTHOL (DERMOPLAST) 60 ML CAN TP PRN (07:45)
[2020-06-29] MEDS: DOCUSATE SODIUM 100 MG (COLACE) CAP PO SCH ×2 (09:01→20:42)
--- NOTE | 2020-06-29 09:15 | NUR ---
Patient amb to BR with assist of 1. Unable to void at this time. Betzy care given. Instructed pt on betzy bottle, tucks pads and derma plast. Patient verbalized understanding. Patient to wheel chair and covered with blanket. IV infusing without difficulty. Patient moved to room 306. 0920 [address] bed. Call light within reach. No concerns voiced at this time.
[2020-06-29] MEDS ORDERED: CALCIUM CARBONATE 500 MG (TUMS) TAB.CHEW PO PRN (10:45)
[2020-06-29] MEDS: ACETAMINOPHEN 500 MG TAB (TYLENOL) PO SCH ×2 (12:31→17:57)
[2020-06-29] MEDS: IBUPROFEN 600 MG (MOTRIN) TAB PO SCH ×3 (12:31→23:50)
[2020-06-29] MEDS ORDERED: CATHETER FLUSH 10 ML SYR IV SCH (14:00)
[2020-06-29] MEDS: FAMOTIDINE 20 MG (PEPCID) TABLET PO PRN (15:35)
[2020-06-30 03:11] VITALS: BP 116/72
[2020-06-30] MEDS: ACETAMINOPHEN 500 MG TAB (TYLENOL) PO SCH ×2 (03:11→11:05)
[2020-06-30] MEDS: IBUPROFEN 600 MG (MOTRIN) TAB PO SCH ×3 (06:30→17:55)
[2020-06-30 06:35] LABS: BASOPHILS % (AUTO) 0 % (0-10); EOSINOPHILS # (AUTO) 0.2 10^3/uL (0.0-0.3); EOSINOPHILS % (AUTO) 2 % (0-10); HEMATOCRIT 26 % (35-52); HEMOGLOBIN 8.8 g/dL (11.5-16.0); LYMPHOCYTES # (AUTO) 2.7 10^3/uL (1.0-4.0); LYMPHOCYTES % (AUTO) 32 % (12-44); MEAN CORPUSCULAR HEMOGLOBIN 28 pg (25-34); MEAN CORPUSCULAR HGB CONC 34 g/dL (32-36); MEAN CORPUSCULAR VOLUME 82 fL (80-99); MEAN PLATELET VOLUME 10.4 fL (9.0-12.2); MONOCYTES # (AUTO) 0.5 10^3/uL (0.0-1.0); MONOCYTES % (AUTO) 5 % (0-12); NEUTROPHILS # (AUTO) 5.1 10^3/uL (1.8-7.8); NEUTROPHILS % (AUTO) 60 % (42-75); PLATELET COUNT 355 10^3/uL (130-400); WHITE BLOOD COUNT 8.4 10^3/uL (4.3-11.0)
--- NOTE | 2020-06-30 09:44 | Progress Note ---
Subjective Subjective/Events-last exam No concerns. Normal lochia, no significant pain. Objective Exam Last Set of Vital Signs Vital Signs Date Time Temp Pulse Resp B/P (MAP) Pulse Ox O2 Delivery O2 Flow Rate FiO2 06/30/20 03:11 36.2 86 18 116/72 (87) 98 Room Air Capillary Refill : Less Than 3 Seconds I&O Intake and Output 06/30/20 00:00 Intake Total 810 ml Balance 810 ml Intake IV Total 810 ml Daily Weight Change No General: Alert, Oriented X3, Cooperative Psych/Mental Status: Mood NL Results/Procedures Lab Laboratory Tests 06/29/20 12:35: Coronavirus (COVID-19)(PCR) Negative 06/30/20 06:17: White Blood Count 8.4, Red Blood Count 3.20L, Hemoglobin 8.8L, Hematocrit 26L, Mean Corpuscular Volume 82, Mean Corpuscular Hemoglobin 28, Mean Corpuscular Hemoglobin Concent 34, Red Cell Distribution Width 15.1H, Platelet Count 355, Mean Platelet Volume 10.4, Immature Granulocyte % (Auto) 1, Neutrophils (%) (Auto) 60, Lymphocytes (%) (Auto) 32, Monocytes (%) (Auto) 5, Eosinophils (%) (Auto) 2, Basophils (%) (Auto) 0, Neutrophils # (Auto) 5.1, Lymphocytes # (Auto) 2.7, Monocytes # (Auto) 0.5, Eosinophils # (Auto) 0.2, Basophils # (Auto) 0.0, Immature Granulocyte # (Auto) 0.1 Assessment/Plan Assessment/Plan (1) Status post vaginal delivery Assessment & Plan: PPD #1 s/p post- Hb 8.4, asymptomatic routine pp care anticipate DC home tomorrow. Clinical Quality Measures DVT/VTE Risk/Contraindication: Risk Factor Score Per Nursin RFS Level Per Nursing on Admit: 1=Low/No VTE PPX DEEPA FRANKEL DO Jun 30, 2020 09:44
[2020-06-30] MEDS ORDERED: IBUP-844 PO (09:45)
[2020-06-30] MEDS: FAMOTIDINE 20 MG (PEPCID) TABLET PO PRN (09:46)
[2020-06-30] MEDS: DOCUSATE SODIUM 100 MG (COLACE) CAP PO SCH ×2 (09:46→20:59)
[2020-06-30 09:49] VITALS: BP 139/88
--- NOTE | 2020-06-30 09:49 | NUR ---
AM shift assessment completed and vital signs obtained, see interventions. Plan of care reviewed with patient. Patient verbalizes understanding and questions answered. Assistance with provided. Scheduled Colace and Pepcid PO given. Shower supplies provided.
[2020-06-30] MEDS ORDERED: ACETAMINOPHEN 500 MG TAB (TYLENOL) PO PRN (13:15)
[2020-06-30 17:57] VITALS: BP 130/83
[2020-07-01 00:30] VITALS: BP 130/81
[2020-07-01] MEDS: IBUPROFEN 600 MG (MOTRIN) TAB PO SCH ×3 (00:30→12:09)
[2020-07-01 06:20] VITALS: BP 130/75
[2020-07-01] MEDS: DOCUSATE SODIUM 100 MG (COLACE) CAP PO SCH (08:48)
[2020-07-01] MEDS: FAMOTIDINE 20 MG (PEPCID) TABLET PO PRN (08:48)
--- NOTE | 2020-07-01 11:07 | Discharge Summary ---
Discharge Summary Hospital Course Problems/Diagnosis: (1) Status post vaginal delivery Assessment & Plan: s/p post- Hb 8.4, asymptomatic routine pp care DC home. Hospital Course Date of Admission: Jun 29, 2020 at 05:12 Date of Discharge: 07/01/20 Discharge Diagnosis: see Problem List Hospital Course: Routine course. Labs and Pending Lab Test: Home Meds Active Ibu (Ibuprofen) 600 Mg Tablet 600 Mg PO Q6HR Reported Vitamins ( Vit W-Ca,Fe,FA(<1 mg)) 1 Each Tablet 1 Each PO Valacyclovir (Valacyclovir HCl) 500 Mg Tablet 500 Mg PO DAILY Assessment/Pt DC Instructions Follow-up with Dr. Zhou in 6wk Discharge Diet: No Restrictions Activity as Tolerated: Yes Discharge Physical Examination Allergies: Coded Allergies: No Known Drug Allergies (Unverified , 01/20/14) General Appearance: No Apparent Distress, WD/WN Skin: Normal Color, Warm/Dry Neurologic/Psychiatric: Alert, Oriented x3 Copy Copies To 1: JERRICA ZHOU MD Clinical Quality Measures DVT/VTE Risk/Contraindication: Risk Factor Score Per Nursin RFS Level Per Nursing on Admit: 1=Low/No VTE PPX DEEPA FRANKEL DO Jul 01, 2020 11:07
--- NOTE | 2020-07-01 12:00 | NUR ---
Discharge instructions given to pt. PHS and appointment card given to pt. Pt verbalizes understanding. Pt signed that discharge instructions were given. Waiting for infant discharge to leave unit.
[2020-07-01 12:06] VITALS: BP 119/80
--- NOTE | 2020-07-01 15:10 | NUR ---
Discharge instructions explained, signed and copy to patient. pt verbalized understanding of instructions and denied questions.
--- NOTE | 2020-07-01 15:30 | NUR ---
Discharged to home with belongings. Downstairs to private vehicle. Accompanied by RN.
== END 2020-07-01 15:30 | disposition home or self-care (01) | DRG 807 ==
LOC: WSo 04:26 → LDRP 04:27 → WSo 06:18 → LDRP 10:00
PROVIDERS: ADMIT Family Medicine; ATTEND Family Medicine
PROC: 10E0XZZ Delivery of Products of Conception, External Approach (ICD-10-PCS; principal; 2020-06-29)
DX: O98.32 Other infections with a predominantly sexual mode of transmission complicating childbirth (principal); Z37.0 Single live birth; Z3A.37 37 weeks gestation of pregnancy; Z20.828 Contact with and (suspected) exposure to other viral communicable diseases; A60.00 Herpesviral infection of urogenital system, unspecified; Z79.899 Other long term (current) drug therapy
CPT/HCPCS: 36415; 85025; 86850; 86900; 86901; 87635; 99212

== ENCOUNTER 2020-07-15 18:51 | Emergency (ER) | payer MEDICAID ==
[~2020-07-15] VITALS: Ht 160 cm; Wt 100.0 kg
[~2020-07-15 18:51] MED LIST changes: +IBUP-844 PO
[2020-07-15 19:00] VITALS: BP 99/61
== END 2020-07-15 19:20 | disposition left against medical advice (07) ==
LOC: EDUNIT# 18:51 → ER 18:53
DX: M54.9 Dorsalgia, unspecified (principal)
CPT/HCPCS: 99282

== ENCOUNTER 2020-10-01 | Outpatient (RCR) | payer MEDICAID | END 2020-12-29 | disposition home or self-care (01) | LOC: CARD | PROVIDERS: ATTEND Family Medicine | DX: Z01.812 Encounter for preprocedural laboratory examination (principal); R55 Syncope and collapse | CPT/HCPCS: 93225; 93226 ==

== ENCOUNTER 2021-06-21 10:35 | Emergency (ER) | payer MEDICAID ==
[~2021-06-21] VITALS: Ht 160 cm; Wt 111.0 kg
[2021-06-21] MEDS ORDERED: ACETAMINOPHEN 500 MG TAB (TYLENOL) PO ONE (11:15)
[2021-06-21] MEDS ORDERED: cefTRIAXone 1 GM PRE-MIX 50 ML IV ONE (11:15)
[2021-06-21] MEDS ORDERED: NS IV 1000 ML 1,000 ML IV SCH (11:15)
--- NOTE | 2021-06-21 11:18 | ED Cough/URI ---
General Chief Complaint: COVID19 Suspect/Confirmed Stated Complaint: COVID +,SOB Source: patient Exam Limitations: no limitations (ALEXANDRA VIRAMONTES) History of Present Illness Date Seen by Provider: Jun 21, 2021 Time Seen by Provider: 11:16 Initial Comments Patient is a 20-year-old female who presents the ED shortness of breath, chest pain and flulike symptoms. She states symptoms started on June 12 with headache, body aches. She states symptoms became worse with wet productive cough with shortness of breath and chest pain. Worsening shortness of breath and chest pain on arrival. Walking oxygen level 91%. Sitting oxygen 94 to 95% on room air. Denies history of asthma, COPD. Not currently on control. Currently breast-feeding. Denies history of PE, coronary artery disease, asthma. She states she feels dehydrated. Has not been able to eat or drink as much for the past 3 to 4 days. She reports 3-4 episodes of diarrhea daily. De nies any vomiting. Continues headache with fever. Febrile on arrival. Has been taken Tylenol ibuprofen without much improvement. Denies abdominal pain, visual changes, sore throat, ear pain, lower extremity swelling, dysuria, increased urine frequency, concern for . (ALEXANDRA VIRAMONTES) Allergies and Home Medications Allergies Coded Allergies: No Known Drug Allergies (Unverified , 01/20/14) Patient Home Medication List Home Medication List Reviewed: Yes (ALEXANDRA VIRAMONTES) Albuterol Sulfate (Proair Hfa) 1 Puff Puff, 2 PUFF IH Q4H Prescribed by: MARICRUZ ANGLIN on 06/21/21 1439 Doxycycline Monohydrate (Doxycycline Monohydrate) 100 Mg Tablet, 100 MG PO BID Prescribed by: MARICRUZ ANGLIN on 06/21/21 1439 Ibuprofen (Ibu) 600 Mg Tablet, 600 MG PO Q6HR Prescribed by: DEEPA FRANKEL on 06/30/20 0945 Prednisone (Prednisone) 50 Mg Tab, 50 MG PO DAILY Prescribed by: MARICRUZ ANGLIN on 06/21/21 1439 Vit W-Ca,Fe,FA(<1 mg) ( Vitamins) 1 Each Tablet, 1 EACH PO, (Reported) Entered as Reported by: MARY HAMPTON on 06/20/20 0126 Valacyclovir HCl (Valacyclovir) 500 Mg Tablet, 500 MG PO DAILY, (Reported) Entered as Reported by: CARLOS DESOUZA on 06/18/20 0032 Review of Systems Review of Systems Constitutional: chills, fever, malaise, weakness EENTM: No double vision, No eye pain, No throat pain, No throat swelling Respiratory: cough, short of breath Cardiovascular: chest pain Gastrointestinal: No abdominal pain; diarrhea; No nausea, No vomiting Genitourinary: No decreased output, No discharge, No dysuria, No frequency Musculoskeletal: No back pain, No joint pain, No joint swelling, No muscle pain Skin: No change in color, No change in hair/nails (ALEXANDRA VIRAMONTES) All Other Systems Reviewed Negative Unless Noted: Yes (ALEXANDRA VIRAMONTES) Past Gnnebqp-Fyklkq-Qoxynu Hx Patient Social History Tobacco Use?: No Substance use?: No Alcohol Use?: No Pt feels they are or have been: No (ALEXANDRA VIRAMONTES) Immunizations Up To Date Tetanus Booster (TDap): Less than 5yrs PED Vaccines UTD: Yes (ALEXANDRA VIRAMONTES) Seasonal Allergies Seasonal Allergies: No (ALEXANDRA VIRAMONTES) Past Medical History Surgeries: Yes (EAR TUBES) Respiratory: No Cardiac: No Neurological: No Reproductive Disorders: No Sexually Transmitted Disease: No HIV/AIDS: No Genitourinary: No Gastrointestinal: No Musculoskeletal: No Endocrine: No HEENT: No Cancer: No Psychosocial: No Integumentary: No Blood Disorders: No (ALEXANDRA VIRAMONTES) Family Medical History Diabetes mellitus 19 MOTHER, , Age:36, Onset:25's - 30 Drug abuse 19 MOTHER, , Age:36 Physical Exam Vital Signs - First Documented 06/21/21 10:40 Temp 38.4 Pulse 120 Resp 30 B/P (MAP) 131/98 (109) Pulse Ox 92 O2 Delivery Room Air (BEATRIZ CONLEY MD) Capillary Refill : (ALEXANDRA VIRAMONTES) Height: 5'1" Weight: 190lbs. oz. 86.661758jd; 39.00 BMI Method:Stated General Appearance: WD/WN, no apparent distress HEENT: PERRL/EOMI, normal ENT inspection, TMs normal Neck: non-tender, full range of motion, supple Respiratory: chest non-tender, lungs clear, normal breath sounds, no respiratory distress Cardiovascular: regular rate, rhythm, no edema, no gallop, no JVD Gastrointestinal: normal bowel sounds, non tender, soft, no organomegaly Extremities: normal range of motion, non-tender, normal inspection, no pedal edema Neurologic/Psychiatric: band sawyer II-XII nml as tested, no motor/sensory deficits, alert, normal mood/affect, oriented x 3 Skin: normal color, warm/dry (ALEXANDRA VIRAMONTES) Focused Exam Lactate Level 06/21/21 10:55: Lactic Acid Level 0.80 (BEATRIZ CONLEY MD) Lactic Acid Level Laboratory Tests Test 06/21/21 10:55 Lactic Acid Level 0.80 MMOL/L (0.50-2.00) (BEATRIZ CONLEY MD) Progress/Results/Core Measures Suspected Sepsis SIRS Temperature: Pulse: Respiratory Rate: Laboratory Tests 06/21/21 10:55: White Blood Count 7.2 Blood Pressure / Mean: 06/21/21 10:55: Lactic Acid Level 0.80 Laboratory Tests 06/21/21 10:55: Creatinine 0.86, INR Comment 1.1, Platelet Count 189, Total Bilirubin 0.4 (ALEXANDRA VIRAMONTES) Results/Orders Lab Results Laboratory Tests Test 06/21/21 10:55 Range/Units White Blood Count 7.2 4.3-11.0 10^3/uL Red Blood Count 5.03 3.80-5.11 10^6/uL Hemoglobin 12.8 11.5-16.0 g/dL Hematocrit 39 35-52 % Mean Corpuscular Volume 77 L 80-99 fL Mean Corpuscular Hemoglobin 25 25-34 pg Mean Corpuscular Hemoglobin Concent 33 32-36 g/dL Red Cell Distribution Width 14.8 H 10.0-14.5 % Platelet Count 189 130-400 10^3/uL Mean Platelet Volume 11.8 9.0-12.2 fL Immature Granulocyte % (Auto) 0 % Neutrophils (%) (Auto) 72 42-75 % Lymphocytes (%) (Auto) 23 12-44 % Monocytes (%) (Auto) 5 0-12 % Eosinophils (%) (Auto) 0 0-10 % Basophils (%) (Auto) 0 0-10 % Neutrophils # (Auto) 5.2 1.8-7.8 10^3/uL Lymphocytes # (Auto) 1.6 1.0-4.0 10^3/uL Monocytes # (Auto) 0.4 0.0-1.0 10^3/uL Eosinophils # (Auto) 0.0 0.0-0.3 10^3/uL Basophils # (Auto) 0.0 0.0-0.1 10^3/uL Immature Granulocyte # (Auto) 0.0 0.0-0.1 10^3/uL Prothrombin Time 14.2 12.2-14.7 SEC INR Comment 1.1 0.8-1.4 Activated Partial Thromboplast Time 34 24-35 SEC D-Dimer 2.60 H 0.00-0.49 UG/ML Sodium Level 135 135-145 MMOL/L Potassium Level 3.9 3.6-5.0 MMOL/L Chloride Level 102 98-107 MMOL/L Carbon Dioxide Level 22 21-32 MMOL/L Anion Gap 11 5-14 MMOL/L Blood Urea Nitrogen 7 7-18 MG/DL Creatinine 0.86 0.60-1.30 MG/DL Estimat Glomerular Filtration Rate 101 BUN/Creatinine Ratio 8 Glucose Level 97 70-105 MG/DL Lactic Acid Level 0.80 0.50-2.00 MMOL/L Calcium Level 8.2 L 8.5-10.1 MG/DL Corrected Calcium 8.3 L 8.5-10.1 MG/DL Total Bilirubin 0.4 0.1-1.0 MG/DL Aspartate Amino Transf (AST/SGOT) 40 H 5-34 U/L Alanine Aminotransferase (ALT/SGPT) 34 0-55 U/L Alkaline Phosphatase 69 40-136 U/L Troponin I < 0.028 <0.028 NG/ML Total Protein 7.6 6.4-8.2 GM/DL Albumin 3.9 3.2-4.5 GM/DL Serum Test, Qualitative NEGATIVE NEGATIVE (BEATRIZ CONLEY MD) Medications Given in ED Current Medications Medications Dose Ordered Sig/Macie Route Start Time Stop Time Status Last Admin Dose Admin Acetaminophen 1,000 mg ONCE ONCE PO 06/21/21 11:15 06/21/21 11:16 DC 06/21/21 11:24 1,000 MG Ceftriaxone Sodium/Dextrose 50 ml @ 100 mls/hr ONCE ONCE IV 06/21/21 11:15 06/21/21 11:44 DC 06/21/21 11:39 100 MLS/HR Iohexol 100 ml ONCE ONCE IV 06/21/21 12:00 06/21/21 12:01 DC 06/21/21 13:57 88 ML Sodium Chloride 100 ml ONCE ONCE IV 06/21/21 12:00 06/21/21 12:01 DC 06/21/21 13:58 100 ML (BEATRIZ CONLEY MD) Vital Signs/I&O 06/21/21 06/21/21 10:40 14:48 Temp 38.4 36.8 Pulse 120 102 Resp 30 22 B/P (MAP) 131/98 (109) 130/92 Pulse Ox 92 95 O2 Delivery Room Air Room Air (BEATRIZ CONLEY MD) Vital Signs/I&O Capillary Refill : (ALEXANDRA VIRAMONTES) Departure Communication (Admissions) Patient oxygen level 95% on room air. She was tachycardic. Outpatient Covid test June 16. Symptoms since July 11. Patient is on her current - 11th day of symptoms. Sepsis protocol was initiated. Patient Was given a liter of fluid. Improvement of tachycardia. Normal white blood count. Blood cul tures pending. EKG sinus tachycardia. Elevated D-dimer. CT angio of the chest negative for PE positive for pneumonia. Cardiac work-up otherwise unremarkable. Oxygen level above 92 to 93% on room air with ambulation. Due to patient's length of symptoms and current complaints patient will be discharged with short burst steroids, and inhaler to help with shortness of breath. Discussed pulse ox at home. Discharged with doxycycline prophylactically for any secondary underlying infections. If any worsening symptoms strongly recommend returning back to ED for further evaluation. Discussed the importance of monitoring oxygen level at this time. Lab work was otherwise unremarkable (ALEXANDRA VIRAMONTES) Impression Primary Impression: Pneumonia due to COVID-19 virus Disposition: HOME, SELF-CARE Condition: Stable Departure-Patient Inst. Decision time for Depature: 14:37 (ALEXANDRA VIRAMONTES) Referrals: SOREN CASTILLO MD NO,LOCAL PHYSICIAN (PCP) Primary Care Physician Patient Instructions: COVID-19 (DC) Add. Discharge Instructions: Recommend quarantine for the next 4 days. Follow-up with your PCP 2 to 3 days for evaluation. Recommend pulse ox to monitor oxygen level All discharge instructions reviewed with patient and/or family. Voiced understanding. Scripts Albuterol Sulfate (PROAIR HFA) 1 Puff Puff 2 PUFF IH Q4H, #1 EA 1 PUFF = 90 MCG Prov: ALEXANDRA VIRAMONTES 06/21/21 Prednisone (Prednisone) 50 Mg Tab 50 MG PO DAILY for 5 Days, #5 TAB Prov: ALEXANDRA VIRAMONTES 06/21/21 Doxycycline Monohydrate (Doxycycline Monohydrate) 100 Mg Tablet 100 MG PO BID for 7 Days, #14 TAB Prov: ALEXANDRA VIRAMONTES 06/21/21 ATTENDING PHYSICIAN NOTE: I was physically present as attending physician in the emergency department during the care of this patient, but I was not directly involved in the decision making or delivery of care for this patient. (BEATRIZ CONLEY MD) ALEXANDRA VIRAMONTES Jun 21, 2021 11:18 BEATRIZ CONLEY MD Jun 21, 2021 20:14
[2021-06-21 11:22] LABS: BASOPHILS % (AUTO) 0 % (0-10); EOSINOPHILS % (AUTO) 0 % (0-10); HEMATOCRIT 39 % (35-52); HEMOGLOBIN 12.8 g/dL (11.5-16.0); LYMPHOCYTES # (AUTO) 1.6 10^3/uL (1.0-4.0); LYMPHOCYTES % (AUTO) 23 % (12-44); MEAN CORPUSCULAR HEMOGLOBIN 25 pg (25-34); MEAN CORPUSCULAR HGB CONC 33 g/dL (32-36); MEAN CORPUSCULAR VOLUME 77 fL (80-99); MEAN PLATELET VOLUME 11.8 fL (9.0-12.2); MONOCYTES # (AUTO) 0.4 10^3/uL (0.0-1.0); MONOCYTES % (AUTO) 5 % (0-12); NEUTROPHILS # (AUTO) 5.2 10^3/uL (1.8-7.8); NEUTROPHILS % (AUTO) 72 % (42-75); PLATELET COUNT 189 10^3/uL (130-400); WHITE BLOOD COUNT 7.2 10^3/uL (4.3-11.0)
[2021-06-21 11:25] LABS: ALBUMIN 3.9 GM/DL (3.2-4.5); CHLORIDE 102 MMOL/L (98-107); POTASSIUM 3.9 MMOL/L (3.6-5.0); SODIUM 135 MMOL/L (135-145)
[2021-06-21 11:26] LABS: CALCIUM 8.2 MG/DL (8.5-10.1)
[2021-06-21 11:27] LABS: GLUCOSE 97 MG/DL (70-105); TOTAL PROTEIN 7.6 GM/DL (6.4-8.2)
[2021-06-21 11:28] LABS: CARBON DIOXIDE 22 MMOL/L (21-32)
[2021-06-21 11:29] LABS: BILIRUBIN,TOTAL 0.4 MG/DL (0.1-1.0)
[2021-06-21 11:30] LABS: FIBRIN DEGRADATION PRODUCTS 2.6 UG/ML (0.00-0.49); INR 1.1 (0.8-1.4); PROTHROMBIN TIME PATIENT 14.2 SEC (12.2-14.7)
[2021-06-21 11:31] LABS: ALKALINE PHOSPHATASE 69 U/L (40-136); CREATININE SERUM 0.86 MG/DL (0.60-1.30); GFR ESTIMATED 101
[2021-06-21 11:32] LABS: BUN/CREATININE RATIO 8
[2021-06-21 11:34] LABS: ALANINE AMINOTRANSFERASE 34 U/L (0-55)
--- NOTE | 2021-06-21 11:47 | Diagnostic Imaging Report ---
Indication: Dyspnea and chest pain AP view of the chest is obtained with comparison made to study of 02/01/2014. There is mild patchy groundglass density in right perihilar region and in the left midlung. No pneumothorax is identified. There is no significant pleural fluid. IMPRESSION: Patchy bilateral groundglass densities would be compatible with viral pneumonitis or other atypical pneumonia. Dictated by: Dictated on workstation # [id number]
[2021-06-21] MEDS ORDERED: IOHEXOL 350 MG/ML 100 ML (OMNIPAQUE 350) VIAL IV ONE (12:00)
[2021-06-21] MEDS ORDERED: NS 100 ML (IVPB) BAG IV ONE (12:00)
[2021-06-21] MEDS ORDERED: HOLD METFORMIN - RECEIVED CONTRAST 20 ML VIAL IV SCH (12:00)
--- NOTE | 2021-06-21 14:14 | Diagnostic Imaging Report ---
PROCEDURE: CT angiography of the chest with contrast. TECHNIQUE: Multiple contiguous axial images were obtained through the chest after uneventful bolus administration of intravenous contrast. 3D reconstructed CTA MIP acquisitions were also performed. Auto Exposure Controls were utilized during the CT exam to meet ALARA standards for radiation dose reduction. INDICATION: Chest pain and shortness of breath. Patient is COVID-19 positive. COMPARISON: No prior studies are available for comparison. FINDINGS: Evaluation of the pulmonary arterial system is without evidence of thromboembolism. No definite filling defects are seen within central, lobar, or segmental branches. Thoracic aorta is normal in caliber. There is no dissection. There is no pericardial or pleural fluid. There are some slightly prominent lymph nodes in the mediastinum prevascular space. Parenchymal evaluation does show extensive bilateral airspace infiltrates, most consolidated in the left upper lobes, consistent with pneumonia. Upper abdomen is unremarkable. IMPRESSION: 1. No evidence of pulmonary embolism or thoracic aortic dissection. 2. Extensive bilateral pulmonary infiltrates, greatest in the left upper lobe and most consistent with pneumonia. Dictated by: Dictated on workstation # [id number]
[2021-06-21] MEDS ORDERED: DOXY100T31 PO (14:39)
[2021-06-21] MEDS ORDERED: PRD50T PO (14:39)
[2021-06-21] MEDS ORDERED: RT-ALBUINH IH (14:39)
[2021-06-21 14:48] VITALS: BP 130/92
== END 2021-06-21 14:48 | disposition home or self-care (01) ==
LOC: EDUNIT# 10:35 → ER 10:36
DX: U07.1 COVID-19 (principal); J12.82 Pneumonia due to coronavirus disease 2019
CPT/HCPCS: 36415; 71045; 71275; 80053; 83605; 84484; 84703; 85025; 85379; 85610; 85730; 93005

== ENCOUNTER 2022-01-08 20:51 | Emergency (ER) | payer MEDICAID ==
[~2022-01-08] VITALS: Ht 160 cm; Wt 110.4 kg
[~2022-01-08 20:51] MED LIST changes: +DOXY100T31 PO; +PRD50T PO; +RT-ALBUINH IH
[2022-01-08] MEDS ORDERED: ceFAZolin INJECTION 1,000 MG in NS (IVPB) 50 ML IV STA (21:07)
[2022-01-08] MEDS ORDERED: fentaNYL INJ 100 MCG/2 ML AMP IVP STA ×2 (21:10→22:58)
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
[2022-01-08] MEDS ORDERED: TETANUS,DIPTH,PERTUSS P/F (BOOSTRIX) 0.5 ML VIAL IM ONE (21:15)
[2022-01-08] MEDS ORDERED: LACTATED RINGERS 1,000 ML IV ONE (21:15)
[2022-01-08] MEDS ORDERED: HOLD METFORMIN - RECEIVED CONTRAST 20 ML VIAL IV SCH (21:30)
[2022-01-08] MEDS ORDERED: NS 100 ML (IVPB) BAG IV ONE (21:30)
[2022-01-08] MEDS ORDERED: IOHEXOL 350 MG/ML 100 ML (OMNIPAQUE 350) VIAL IV ONE (21:30)
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
[2022-01-08] MEDS ORDERED: LIDOCAINE 2% VISCOUS 15 ML UDC MM ONE (23:00)
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
[2022-01-08] MEDS ORDERED: RX-CEPHALEXIN (KEFLEX) 250 MG CAP PPK#4 PO STA (23:15)
[2022-01-08] MEDS ORDERED: RX-MUPIROCIN (BACTROBAN) 2% OINT 22 GM TUBE TOP STA (23:15)
[2022-01-08 23:22] LABS: HEMATOCRIT 45 % (35-52); HEMOGLOBIN 14.5 g/dL (11.5-16.0); MEAN CORPUSCULAR HEMOGLOBIN 27 pg (25-34); MEAN CORPUSCULAR HGB CONC 32 g/dL (32-36); MEAN CORPUSCULAR VOLUME 84 fL (80-99); MEAN PLATELET VOLUME 11.6 fL (9.0-12.2); PLATELET COUNT 355 10^3/uL (130-400)
[2022-01-08 23:26] LABS: POTASSIUM 3.6 MMOL/L (3.6-5.0)
[2022-01-08] MEDS ORDERED: MUPI22OI2 TP (23:26)
[2022-01-08] MEDS ORDERED: CEPH500T PO (23:26)
[2022-01-08] MEDS ORDERED: ACHD5005 PO (23:26)
[2022-01-08] MEDS ORDERED: IBUP-1780 PO (23:26)
[2022-01-08 23:27] LABS: ALBUMIN 4.2 GM/DL (3.2-4.5)
[2022-01-08 23:28] LABS: CALCIUM 9.3 MG/DL (8.5-10.1)
[2022-01-08 23:29] LABS: TOTAL PROTEIN 7.5 GM/DL (6.4-8.2)
[2022-01-08 23:30] VITALS: BP 129/75
[2022-01-08 23:30] LABS: FIBRIN DEGRADATION PRODUCTS 1.24 UG/ML (0.00-0.49); INR 0.9 (0.8-1.4); PROTHROMBIN TIME PATIENT 12.9 SEC (12.2-14.7)
[2022-01-08 23:31] LABS: BILIRUBIN,TOTAL 0.3 MG/DL (0.1-1.0)
[2022-01-08 23:32] LABS: PHOSPHORUS 1.5 MG/DL (2.3-4.7)
[2022-01-08 23:33] LABS: CREATININE SERUM 0.98 MG/DL (0.60-1.30)
[2022-01-08 23:34] LABS: BILIRUBIN,DIRECT 0.1 MG/DL (0.0-0.3); BILIRUBIN,INDIRECT 0.2 MG/DL
[2022-01-08 23:36] LABS: MAGNESIUM 1.7 MG/DL (1.6-2.4)
[2022-01-09 00:17] LABS: BILIRUBIN,URINE NEGATIVE (NEGATIVE); CLARITY,URINE CLEAR; COLOR,URINE YELLOW; GLUCOSE, URINE (UA) NEGATIVE (NEGATIVE); KETONES,URINE NEGATIVE (NEGATIVE); LEUKOCYTE ESTERASE ,URINE 1+ (NEGATIVE); NITRITE,URINE POSITIVE (NEGATIVE); PROTEIN,URINE NEGATIVE (NEGATIVE)
[2022-01-09 00:20] LABS: AMPHETAMINE SCREEN, URINE NEGATIVE (NEGATIVE); BARBITURATE SCREEN URINE NEGATIVE (NEGATIVE); BENZODIAZEPINES SCREEN URINE NEGATIVE (NEGATIVE); CANNABINOID SCREEN, URINE POSITIVE (NEGATIVE); COCAINE SCREEN URINE NEGATIVE (NEGATIVE); METHADONE STAT NEGATIVE (NEGATIVE); OPIATE SCREEN URINE NEGATIVE (NEGATIVE); OXYCODONE STAT NEGATIVE (NEGATIVE); PROPOXYPHENE STAT NEGATIVE (NEGATIVE); TRICYCLIC ANTIDEPRESSANTS SCRE NEGATIVE (NEGATIVE)
[2022-01-09 00:44] LABS: BACTERIA,URINE MODERATE /HPF
== END 2022-01-08 23:30 | disposition home or self-care (01) ==
LOC: EDUNIT# 20:51 → ER 20:52
DX: S06.0X9A Concussion with loss of consciousness of unspecified duration, initial encounter (principal); S16.1XXA Strain of muscle, fascia and tendon at neck level, initial encounter; S46.911A Strain of unspecified muscle, fascia and tendon at shoulder and upper arm level, right arm, initial encounter; S80.12XA Contusion of left lower leg, initial encounter; S80.11XA Contusion of right lower leg, initial encounter; S80.211A Abrasion, right knee, initial encounter; N39.0 Urinary tract infection, site not specified; Z23 Encounter for immunization; Z28.310 Unvaccinated for COVID-19; V49.40XA Driver injured in collision with unspecified motor vehicles in traffic accident, initial encounter
CPT/HCPCS: 70450; 70486; 71045; 71260; 72125; 72128; 72131; 72170; 73030; 73060; 73552 ×2; 73562 ×2; 73590 ×2; 74177; 80048; 80076; 80306; 81000; 82550; 83735; 84100; 84703; 85027; 85379; 85384; 85610; 85730; 87088; 93005; 93041; 99284; G0480; 36415; 80320; 90715